=== PATIENT | male | born 1940 | race Asian ===

== ENCOUNTER 2016-05-20 15:50 | Inpatient (IN) | payer MEDICARE, MEDICAID ==
[2016-05-20 16:18] VITALS: BP 122/86
--- NOTE | 2016-05-20 16:50 | ED Physician Chart ---
Chief Complaint/HPI - Patient Information Allergies:: Allergies Allergy/AdvReac Type Severity Reaction Status Date / Time shrimp Allergy Uncoded 07/04/13 13:47 Vitals:: Vital Signs - 8 hr 05/20/16 05/20/16 16:18 19:41 Temp 98.2 F 99.9 F HR 88 81 RR 15 18 BP 122/86 163/77 O2 Sat % 97 98 <NeymardangJun - Last Filed: 05/20/16 20:21> - Patient Information Date Seen:: 05/20/16 Time Seen:: 16:30 Chief Complaint:: ALOC and he had stopped speaking. History of Present Illness:: This 75-year-old male was brought to the emergency department because he stopped talking. He normally is able to have conversation. He went from not talking to being verbal again and currently in the emergency department is probably at his baseline level. He is unable to provide any additional information on his medical history. Allergies:: Allergies Allergy/AdvReac Type Severity Reaction Status Date / Time shrimp Allergy Uncoded 07/04/13 13:47 Vitals:: Vital Signs - 8 hr 05/20/16 16:18 Temp 98.2 F HR 88 RR 15 BP 122/86 O2 Sat % 97 <Clem Greer - Last Filed: 05/21/16 22:28> Review of Systems - Review of Systems General/Constitutional: Weakness (the patient has weakness on his left side from a prior stroke.), Other (the patient is too confused to answer all of the questions in the review of systems.) Skin: No skin lesions, No rash Head: Other (when asked if he has a headache the patient says a very mild one.) Eyes: No loss of vision, No diplopia ENT: No earache, No sore throat Neck: No neck pain, No stiffness Cardio Vascular: No chest pain Pulmonary: No SOB, No cough, No sputum GI: No nausea, No vomiting, No diarrhea, No pain G/U: No hematuria Musculoskeletal: No bone or joint pain, No back pain Psychiatric: Prior psych history Hematopoietic: No bruising Neurological: Focal symptoms Other: Mild headache. <Clem Greer - Last Filed: 05/21/16 22:28> Family Medical History - Family Member Mother History Unknown: Yes Ethnicity: Non- Living Status: Hx Family Cancer: No Hx Family Coronary Artery Disease: No Hx Family Congestive Heart Failure: No Hx Family Hypertension: No Hx Family Stroke: No Hx Family Diabetes: Yes Hx Family Seizures: No Hx Family Dementia: No Hx Family AIDS: No Hx Family HIV: No Hx Family COPD: No Hx Family Hepatitis: No Hx Family Psychiatric Problems: No Hx Family Tuberculosis: No <Clem Greer - Last Filed: 05/21/16 22:28> Physical Exam - Physical Examination General/Constitutional: Awake, Well-developed, well-nourished, Alert, No distress, Non-toxic appearing Other Gen/Cons comments:: Nonambulatory due to prior stroke. He had addressed me as "Doctor" when he wanted to get my attention. He is good at following simple commands for example follow my flashlight, open your mouth, stick out your tongue. Head: Atraumatic Eyes: Lids, conjuctiva normal, PERRL, EOMI Other Eyes comments:: Patient has moderate arcus in both the right and the left eye. Skin: Nl inspection, No ecchymosis, Well hydrated Other Skin comments:: Patient has hyperpigmentation of the left lower extremity below the knee. No other rashes noted. ENMT: External ears, nose nl, Nasal exam nl, Oropharynx nl, Tonsils nl Neck: Nontender, No JVD, No nuchal rigidity, No mass Respiratory: Nl effort/Exclusion, No Wheeze/Rhonchi/Rales (no wheezes/rhonchi or rales on anterior auscultation.) Cardio Vascular: RRR, No murmur, gallop, rubs, NL S1 S2 Other Cardio Vascular comments:: Adequate pulses all 4 extremities. GI: No tenderness/rebounding/guarding, No organomegaly, No hernia, Normal BS's, Nondistended, No mass/bruits, No McBurney tenderness : No CVA tenderness (the patient has contractures of the left upper extremity and hand. There is decreased strength in the left lower extremity. The patient has trace pretibial edema bilaterally. Sensory exam was intact in the right upper and lower extremity and the left lower extremity.) Misc: Normal back <Clem Greer - Last Filed: 05/21/16 22:28> Labs/Radiology/EKG Results - Lab Results Results: Laboratory Tests 05/20/16 05/20/16 05/20/16 17:15 17:15 17:15 WBC 7.9 RBC 4.16 Hgb 12.2 L D Hct 35.8 L D MCV 86.0 MCH 29.4 MCHC Differential 34.2 RDW 13.5 Plt Count 347 D MPV 7.4 Neutrophils % 76.6 Lymphocytes % 14.4 L Monocytes % 4.9 Eosinophils % 3.2 Basophils % 0.9 Sodium 133 L Potassium 4.1 Chloride 102 Carbon Dioxide 23.9 Anion Gap 11.2 BUN 28 H Creatinine 1.9 H Est GFR ( Amer) TNP Est GFR (Non-Af Amer) TNP BUN/Creatinine Ratio 14.7 Glucose 268 H Hemoglobin A1c % Calcium 9.9 Total Bilirubin 0.6 AST 22 ALT 13 Alkaline Phosphatase 41 Troponin I 0.01 Total Protein 7.7 Albumin 4.1 L Globulin 3.6 Albumin/Globulin Ratio 1.1 Urine Source Urine Color Urine Clarity Urine pH Ur Specific [place] Urine Protein Urine Glucose (UA) Urine Ketones Urine Blood Urine Nitrate Urine Bilirubin Urine Urobilinogen Ur Leukocyte Esterase Urine RBC Urine WBC Ur Epithelial Cells Urine Bacteria 05/20/16 05/20/16 17:15 18:55 WBC RBC Hgb Hct MCV MCH MCHC Differential RDW Plt Count MPV Neutrophils % Lymphocytes % Monocytes % Eosinophils % Basophils % Sodium Potassium Chloride Carbon Dioxide Anion Gap BUN Creatinine Est GFR ( Amer) Est GFR (Non-Af Amer) BUN/Creatinine Ratio Glucose Hemoglobin A1c % 7.5 H Calcium Total Bilirubin AST ALT Alkaline Phosphatase Troponin I Total Protein Albumin Globulin Albumin/Globulin Ratio Urine Source [place] Urine Color YELLOW Urine Clarity CLEAR Urine pH 5.5 Ur Specific [place] 1.025 Urine Protein 100 H Urine Glucose (UA) 250 H Urine Ketones NEGATIVE Urine Blood SMALL H Urine Nitrate NEGATIVE Urine Bilirubin NEGATIVE Urine Urobilinogen 0.2 Ur Leukocyte Esterase NEGATIVE Urine RBC 2-5 H Urine WBC NONE SEEN Ur Epithelial Cells NONE SEEN Urine Bacteria NONE SEEN - Radiology Results Results: CT head without contrast preliminary report per radiology No hemorrhage Large areas of encephalomalacia of the right cerebral hemisphere. Areas of right-sided calcification to be chronic and due to prior infarcts. Correlate with all exams. Atrophy ASVD Left maxillary sinus disease with small air-fluid level. <Jun Rodriguez - Last Filed: 05/20/16 20:21> ED Septic Shock - . Is Septic Shock (SBP<90, OR Lactate>4 mmol\\L) present?: No - <6hrs of presentation: Vital Signs: Vital Signs - 8 hr 05/20/16 05/20/16 16:18 19:41 Temp 98.2 F 99.9 F HR 88 81 RR 15 18 BP 122/86 163/77 O2 Sat % 97 98 <Jun Rodriguez - Last Filed: 05/20/16 20:21> - <6hrs of presentation: Vital Signs: Vital Signs - 8 hr 05/20/16 16:18 Temp 98.2 F HR 88 RR 15 BP 122/86 O2 Sat % 97 <Clem Greer - Last Filed: 05/21/16 22:28> Reassessment (Disposition) - Reassessment Reassessment:: Patient was handed off to me at change of shift. The patient has a brother of a local physician. Apparently had some type of altered mental status which was transient. Patient is alert and oriented. Back to his baseline self. Case was discussed with his brother who is the physician. CT did demonstrate some left-sided maxillary sinusitis along with chronic changes. It is unknown what caused the change in the patient's mental status. He possibly had a TIA. Discussed the case with Dr. Ramos who decided to admit the patient for further workup and treatment. - Diagnosis Diagnosis:: Altered mental status, possible TIA Hypertension Left maxillary sinusitis, chronic - Patient Disposition Discharge/Transfer[facility] Medical Physician:: Antoni Ramos Time:: 20:27 Condition at Disposition:: Improved <Jun Rodriguez - Last Filed: 05/20/16 20:21> ED Discharge Plan <Jun Rodriguez - Last Filed: 05/20/16 20:21> <Clem Greer - Last Filed: 05/21/16 22:28> - Patient Disposition Admit/Discharge/Transfer: Acute Care w/in this hosp
[2016-05-20] MEDS ORDERED: Morphine Sulfate 2 mg/mL 1mL Syr IV STA (17:21)
[2016-05-20 17:31] LABS: % BASOPHILS 0.9 % (0.0-2.0); % EOSINOPHILS 3.2 % (0.0-5.0); % LYMPHOCYTES 14.4 % (20.0-50.0); % MONOCYTES 4.9 % (2.0-10.0); % NEUTROPHILS 76.6 % (40.0-80.0); MEAN CORPUSCULAR HEMOGLOBIN 29.4 pg (27.0-31.0); MEAN CORPUSCULAR HGB CONC 34.2 pg (28.0-36.0); MEAN PLATELET VOLUME 7.4 fl; PLATELET COUNT 347 Th/cmm (150-400); RED BLOOD COUNT 4.16 Mil/cmm (3.80-5.80); RED CELL DISTRIBUTION WIDTH 13.5 % (11.5-20.0); WHITE BLOOD COUNT 7.9 Th/cmm (4.8-10.8)
[2016-05-20 17:34] LABS: HEMATOCRIT 35.8 % (39.0-49.0); HEMOGLOBIN 12.2 gm/dL (12.6-17.4)
[2016-05-20 17:49] LABS: ALB/GLOB RATIO 1.1 (1.0-1.8); ALKALINE PHOSPHATASE 41 U/L (34-104); ANION GAP 11.2 (7.0-16.0); BILIRUBIN,TOTAL 0.6 mg/dL (0.3-1.0); BUN - UREA NITROGEN 28 mg/dL (7-25); BUN/CREATININE RATIO 14.7; CALCIUM SERUM 9.9 mg/dL (8.6-10.3); CARBON DIOXIDE 23.9 mEq/L (21.0-31.0); CHLORIDE 102 mEq/L (98-107); CREATININE - SERUM 1.9 mg/dL (0.7-1.3); GLUCOSE 268 mg/dL (70-105); POTASSIUM SERUM 4.1 mEq/L (3.5-5.1); SGOT 22 U/L (13-39); SGPT/ALT 13 U/L (7-52); SODIUM SERUM 133 mEq/L (136-145)
[2016-05-20] MEDS ORDERED: Morphine Sulfate 2 mg/mL 1mL Syr ONE (18:34)
[2016-05-20 19:35] LABS: URINE COLOR YELLOW
[2016-05-20 19:36] LABS: URINE BILIRUBIN NEGATIVE (NEGATIVE); URINE BLOOD SMALL (NEGATIVE); URINE GLUCOSE (UA) 250 mg/dL (NEGATIVE); URINE KETONE NEGATIVE (NEGATIVE); URINE PH 5.5; URINE PROTEIN 100 mg/dL (NEGATIVE); URINE UROBILINOGEN 0.2 E.U./dL (0.2 - 1.0)
[2016-05-20 19:37] LABS: URINE BACTERIA NONE SEEN /hpf (NONE SEEN); URINE EPITHELIAL CELLS NONE SEEN /lpf (FEW); URINE WBC NONE SEEN /hpf (0-5)
[2016-05-20] MEDS ORDERED: Sodium Chloride 0.9% 1,000 ML IV ONE (19:43)
[2016-05-20] MEDS ORDERED: Guaifenesin DM 10 ML UDC PO PRN (21:57)
[2016-05-20] MEDS ORDERED: Hydrocodone/APAP 5mg/325mg Tab PO PRN (21:57)
--- NOTE | 2016-05-20 22:14 | Admit Criteria Form ---
Admit Criteria Forms - Admit Criteria Diagnosis: MENTAL STATUS CHANGE Clinical Indications for Inpatient Care (Place 'X' for any and all applicable criteria): Ongoing inpatient care may be needed for ANY ONE of the following(1)(2)(3)(5)(6) : [X]I. Suspected serious etiology (eg, medical disorder, COMPUGRAPH OPERATOR event) of mental status change [ ]II. Danger to self or others not manageable at lower level of care [ ]III. Grave disability (eg, inability to perform self care necessary at lower level of care) [ ]IV. Agitation or inappropriate behavior interfering with care for primary condition (eg, attempting to discontinue lines or drains prematurely, unable to cooperate with respiratory care) [ ]V. Delirium [A] [D][E] as described by ANY ONE of the following(26): [ ]a) Delirium due to alcohol or sedative [F] withdrawal [ ]b) Delirium of uncertain etiology that has not responded to appropriate empiric treatment [ ]c) Delirium that prevents performance of a life-sustaining function (eg, feeding or hydrating oneself) [ ]. General contraindications and/or Inappropriate clinical situations for Observational Care in patients with Mental Status Change, when ANY ONE of the following is required: [ ]a) Prediction of prolongation of LOS based on ANY ONE of the following may be considered as a contraindication for observational care 2, 3, 4, 5, 6, 7, 8, 9, 10, 11 [ ]i) Age > 65 yrs. [ ]ii) Patient arriving by ambulance [ ]iii) Patient with high acuity [ ]iv) Patient requiring vital sign monitoring [ ]v) Patient on IV medication [ ]b) Systolic blood pressures 180mmHg 3,12 [ ]c) Patient with altered mental status including delirium and other alteration of consciousness, (3) [ ]d) Patient whose discharge disposition will be to a usp home or rehabilitation home should not be managed in Emergency Department Observation Unit. CMS rule requires 3 days hospital stay before such placement.3,13 [ ]e) Patient with failure to thrive due to broad array of etiologies 3,16,17 [ ]f) Inability to ambulate 3,14 Extended stay beyond goal length of stay for the primary condition may be needed until ALL of the following are present(3)(5): [ ]a) Underlying medical etiology of mental status change is absent, or has been established and adequately treated [ ]b) Danger to self or others is absent or manageable at lower level of care. [ ]c) Behavior crisis management, including physical or chemical restraints, is not required or available at lower level of car [ ]d) Substance or alcohol withdrawal is absent or manageable at lower level of care. [ ]e) Behavioral symptoms (eg, agitation, somnolence, inappropriate behavior) are absent, or are manageable at lower level of care. The original [facility] content created by [facility] has been revised. The portions of the content which have been revised are identified through the use of italic text or in bold, and [facility] has neither reviewed nor approved the modified material. All other unmodified content is copyright [facility]. Please see references footnoted in the original [facility] edition 2016 Admit Criteria Met?: Yes
[2016-05-20] MEDS ORDERED: Levofloxacin 500mg/100mL 500 MG/100 ML BAG IV ONE (22:15)
[2016-05-20] MEDS ORDERED: Albuterol/Ipratropium Neb 3 ML AERS HHN PRN (23:15)
[2016-05-20] MEDS: Sodium Chloride 0.9% 1,000 ML IV SCH (23:50)
[2016-05-21] MEDS: Atorvastatin Calcium 10 MG TAB PO SCH ×2 (00:22→21:05)
[2016-05-21] MEDS: Ferrous Sulfate 325 MG TAB PO SCH ×4 (00:23→21:02)
[2016-05-21] MEDS: Fenofibrate, Micronized 134 mg Cap PO SCH ×2 (00:23→08:43)
[2016-05-21] MEDS: INSULIN ASPART, RECOMBINANT 100 UNITS/ML SUBQ SCH ×4 (07:01→21:07)
[2016-05-21 07:15] LABS: ANION GAP 7.8 (7.0-16.0); BUN - UREA NITROGEN 23 mg/dL (7-25); BUN/CREATININE RATIO 15.3; CALCIUM SERUM 9.3 mg/dL (8.6-10.3); CARBON DIOXIDE 24.9 mEq/L (21.0-31.0); CHLORIDE 106 mEq/L (98-107); CREATININE - SERUM 1.5 mg/dL (0.7-1.3); GLUCOSE 134 mg/dL (70-105); POTASSIUM SERUM 3.7 mEq/L (3.5-5.1); SODIUM SERUM 135 mEq/L (136-145)
[2016-05-21 07:27] LABS: TSH 0.74 uIU/ml (0.34-5.60)
[2016-05-21] MEDS: Pantoprazole 40 mg EC Tab PO SCH ×2 (08:43→16:39)
[2016-05-21] MEDS: Multivitamin w/ Minerals Tab PO SCH (08:43)
[2016-05-21] MEDS: Diltiazem CD 120 mg 24H PO SCH (08:44)
--- NOTE | 2016-05-21 10:50 | Diagnostic Imaging Report ---
CHEST X-RAY: AP view INDICATION: Pneumonia COMPARISON: Chest x-ray 02/06/2015 FINDINGS: The prior right IJ line has been removed. Increased bibasilar lung markings are noted. No focal consolidation or pleural effusions. Mild cardiomegaly is noted with atherosclerosis. Degenerative changes of the spine are noted. IMPRESSION: Chronic lung changes with increased bibasal lung markings favoring atelectasis versus scarring. No focal consolidation identified. Mild cardiomegaly with atherosclerosis.
--- NOTE | 2016-05-21 11:48 | Diagnostic Imaging Report ---
Head CT without intravenous contrast Indication: Altered mental status Comparison: CT abdomen and pelvis on 01/20/2015 Technique: Axial images were obtained from the vertex to the skull base without IV contrast. Coronal reconstructions were made. Total DLP: [id number], [id number] FINDINGS: Images of the brain obtained without contrast demonstrate no evidence of acute hemorrhage. Large areas of encephalomalacia are seen throughout the right cerebral hemisphere likely due to old infarcts. Areas of calcification in the high right cerebral hemisphere are noted which may be related to patient's old infarcts. Atrophy is noted. The ventricles and basal cisterns are patent. No mass effect or midline shift. No evidence of a skull fracture or focal soft tissue swelling. Small air fluid level of the left maxillary sinus is noted. IMPRESSION: No evidence of an acute intracranial hemorrhage. Redemonstration of large right sided old infarcts with associated encephalomalacia and stable calcifications noted which may also be sequela of old infarcts. Atrophy. Atherosclerotic vascular disease. Left maxillary sinus disease.
[2016-05-21] MEDS: Zinc Oxide Ointment 60 gm TP SCH ×2 (11:50→21:43)
[2016-05-21] MEDS: Sodium Chloride 0.9% 1,000 ML IV SCH (17:25)
[2016-05-21] MEDS: Levofloxacin 250 mg/50 mL Premix Bag IV SCH (21:56)
--- NOTE | 2016-05-22 03:15 | History & Physical ---
INTERNAL MEDICINE HISTORY AND PHYSICAL: CHIEF COMPLAINT: Loss of consciousness, change in mental status. HISTORY OF PRESENT ILLNESS: This is a 75-year-old -[place] male with history of diabetes, hypertension, stroke, hypercholesterolemia and seizure, who was admitted from a nursing facility secondary to inability to talk and then passed out. The patient was brought to the ER. Initial CT was negative. The patient was essentially back to his baseline, able to follow simple conversation and commands. Denies any chest pain or shortness of breath. PAST MEDICAL HISTORY: As mentioned in history of present illness. PAST SURGICAL HISTORY: Status post colonoscopy in the past. ALLERGIES: No known drug allergies. MEDICATIONS: Tylenol, aspirin, diltiazem, Colace, finasteride, iron, Lyrica, Zoloft, Atrovent, Zanaflex. FAMILY HISTORY: Noncontributory. SOCIAL HISTORY: The patient is from a longterm. The patient was an avid smoker and drinker in the past. REVIEW OF SYSTEMS: This is limited secondary to the patient's current mental state. We will try to obtain a more detailed review of systems at a later date by talking to family members or brothers over the phone, number [phone]. We will also take the information from the nursing staff at [facility], number [phone]. PHYSICAL EXAMINATION: VITAL SIGNS: T-max 99.9, current temperature 97.3, blood pressure 149/68, respirations 18, pulse 55-90. GENERAL: An elderly male, appears chronically ill. NECK: Supple. No mass. LUNGS: Equal breath sounds, few rhonchi. HEART: Regular rate and rhythm with systolic ejection murmur. ABDOMEN: Soft, nontender. EXTREMITIES: Positive excoriations. NEUROLOGIC: Limited. Decreased motor and sensory in bilateral upper extremities. LABORATORY DATA: WBC 7.8, hemoglobin 12, platelets 247. Sodium 132, potassium 4.1, BUN 28, creatinine 1.9. Blood sugar 180, 132, 134, last 2 readings. Hemoglobin A1c 7.5. ____ 4.1. rbc's 5, small blood. ASSESSMENT AND PLAN: 1. Altered level of consciousness. 2. Transient ischemic attack. 3. Fever. 4. Syncope. 5. Diabetes. 6. Hypertension. 7. Hypercholesterolemia. 8. Stroke. 9. Seizure. 10. Debilitation. 11. Functional quadriplegia. 12. Anemia. 13. Hyponatremia. 14. Renal insufficiency. 15. Cardiomegaly. We will continue the patient on neuro workup, which has been ordered as well as 2D echo. We will refer the patient to physical therapy, occupational therapy, continue on aspirin, continue on ADA diet, insulin sliding scale. The patient is dehydrated. We will continue IV hydration. We will continue to follow. JOB# [id number]
[2016-05-22] MEDS: INSULIN ASPART, RECOMBINANT 100 UNITS/ML SUBQ SCH ×4 (07:07→20:54)
[2016-05-22] MEDS: INSULIN 70/30 100 UNITS/ML SUBQ SCH (07:12)
[2016-05-22 07:28] LABS: HEMATOCRIT 32.7 % (39.0-49.0); HEMOGLOBIN 11.4 gm/dL (12.6-17.4); MEAN CORPUSCULAR HEMOGLOBIN 29.5 pg (27.0-31.0); MEAN CORPUSCULAR HGB CONC 34.8 pg (28.0-36.0); MEAN PLATELET VOLUME 7.6 fl; PLATELET COUNT 296 Th/cmm (150-400); RED BLOOD COUNT 3.84 Mil/cmm (3.80-5.80); RED CELL DISTRIBUTION WIDTH 13.2 % (11.5-20.0)
[2016-05-22 07:35] LABS: ALB/GLOB RATIO 1.3 (1.0-1.8); ALKALINE PHOSPHATASE 41 U/L (34-104); ANION GAP 11.5 (7.0-16.0); BILIRUBIN,TOTAL 0.5 mg/dL (0.3-1.0); BUN - UREA NITROGEN 22 mg/dL (7-25); BUN/CREATININE RATIO 14.7; CALCIUM SERUM 9.4 mg/dL (8.6-10.3); CARBON DIOXIDE 24.2 mEq/L (21.0-31.0); CHLORIDE 106 mEq/L (98-107); CREATININE - SERUM 1.5 mg/dL (0.7-1.3); GLUCOSE 122 mg/dL (70-105); MAGNESIUM 1.8 mg/dL (1.9-2.7); POTASSIUM SERUM 3.7 mEq/L (3.5-5.1); SGOT 18 U/L (13-39); SGPT/ALT 11 U/L (7-52); SODIUM SERUM 138 mEq/L (136-145)
[2016-05-22 07:57] LABS: WHITE BLOOD COUNT 6.3 Th/cmm (4.8-10.8)
[2016-05-22] MEDS: Sodium Chloride 0.9% 1,000 ML IV SCH (09:22)
[2016-05-22] MEDS: Zinc Oxide Ointment 60 gm TP SCH ×2 (09:23→20:14)
[2016-05-22] MEDS: Diltiazem CD 120 mg 24H PO SCH (09:30)
[2016-05-22] MEDS: Fenofibrate, Micronized 134 mg Cap PO SCH (09:31)
[2016-05-22] MEDS: Pantoprazole 40 mg EC Tab PO SCH ×2 (09:31→17:59)
[2016-05-22] MEDS: Ferrous Sulfate 325 MG TAB PO SCH ×3 (09:32→20:16)
[2016-05-22] MEDS: Multivitamin w/ Minerals Tab PO SCH (09:32)
[2016-05-22 10:30] LABS: EOSINOPHIL 6 % (0-5); NEUTROPHILS 51 % (40-80); TOTAL CELLS COUNTED 100
[2016-05-22 10:31] LABS: PLATELET ESTIMATE ADEQUATE (NORMAL); PLATELET MORPHOLOGY NORMAL (NORMAL)
--- NOTE | 2016-05-22 11:02 | Diagnostic Imaging Report ---
Carotid ultrasound HISTORY: Syncope COMPARISON: None Technique: Longitudinal and transverse sonographic sector images of the carotid arteries were obtained with doppler analysis. FINDINGS: Exam of the right side demonstrates intimal thickening and mild to moderate generalized atherosclerotic plaque formation. There is increased velocities of the right proximal mid and distal ICA, greatest proximally measuring 153 cm/second. The right ICA/CCA ratio is 2.0. Increased right ECA velocity seen in limited 130 cm/second. Exam of the left side demonstrates intimal thickening and mild to moderate atherosclerotic vascular disease. Increased left ECA velocity is seen at 125 cm/second. Incidentally noted are bilateral thyroid nodules demonstrating calcifications the largest on the right measuring 1.5 cm and the largest on the right measuring 1.4 cm. Antegrade vertebral artery flow is demonstrated bilaterally. IMPRESSION: Mild to Moderate bilateral atherosclerotic vascular disease, right greater than left. There are areas of increased velocity throughout the right ICA with increased velocity ratio on the right side. This finding may be sequela of 50-69% vessel narrowing in this region. If indicated CT angiography of the neck would provide for additional detail and assessment. Increased bilateral ECA velocities, nonspecific and may be due to vessel tortuosity. Bilateral thyroid nodules noted which appear to contain calcifications.. Dedicated thyroid ultrasound is recommended for further assessment.
[2016-05-22 11:18] LABS: FOLIC ACID 7.3 ng/mL (>3.0)
[2016-05-22] MEDS ORDERED: Mag Sulfate 2gm/50mL Premix 2 GM/50 ML BAG IV ONE (12:46)
--- NOTE | 2016-05-22 12:49 | Internal Medicine Prog Note ---
Internal Medicine Subjective - Subjective Patient seen and examined:: with staff, chart reviewed Patient is:: awake, verbal, interactive Per staff patient is:: no adverse event, eating well, unstable gait Internal Medicine Objective - Results Result Diagrams: 05/22/16 06:55 05/22/16 06:55 Recent Labs: Laboratory Last Values WBC 6.3 Th/cmm (4.8-10.8) D 05/22/16 06:55 RBC 3.84 Mil/cmm (3.80-5.80) 05/22/16 06:55 Hgb 11.4 gm/dL (12.6-17.4) L 05/22/16 06:55 Hct 32.7 % (39.0-49.0) L 05/22/16 06:55 MCV 85.0 fl (80-99) 05/22/16 06:55 MCH 29.5 pg (27.0-31.0) 05/22/16 06:55 MCHC Differential 34.8 pg (28.0-36.0) 05/22/16 06:55 RDW 13.2 % (11.5-20.0) 05/22/16 06:55 Plt Count 296 Th/cmm (150-400) 05/22/16 06:55 MPV 7.6 fl 05/22/16 06:55 Neutrophils % 76.6 % (40.0-80.0) 05/20/16 17:15 Lymphocytes % 14.4 % (20.0-50.0) L 05/20/16 17:15 Monocytes % 4.9 % (2.0-10.0) 05/20/16 17:15 Eosinophils % 3.2 % (0.0-5.0) 05/20/16 17:15 Basophils % 0.9 % (0.0-2.0) 05/20/16 17:15 Neutrophils (Manual) 51 % (40-80) 05/22/16 06:55 Lymphocytes 33 % (20-50) 05/22/16 06:55 Monocytes 7 % (2-10) 05/22/16 06:55 Eosinophils 6 % (0-5) H 05/22/16 06:55 Atypical Lymphocytes 3 % 05/22/16 06:55 Platelet Estimate ADEQUATE (NORMAL) 05/22/16 06:55 Platelet Morphology NORMAL (NORMAL) 05/22/16 06:55 RBC Morph Micro Appear NORMAL (NORMAL) 05/22/16 06:55 Sodium 138 mEq/L (136-145) 05/22/16 06:55 Potassium 3.7 mEq/L (3.5-5.1) 05/22/16 06:55 Chloride 106 mEq/L (98-107) 05/22/16 06:55 Carbon Dioxide 24.2 mEq/L (21.0-31.0) 05/22/16 06:55 Anion Gap 11.5 (7.0-16.0) 05/22/16 06:55 BUN 22 mg/dL (7-25) 05/22/16 06:55 Creatinine 1.5 mg/dL (0.7-1.3) H 05/22/16 06:55 Est GFR ( Amer) TNP 05/22/16 06:55 Est GFR (Non-Af Amer) TNP 05/22/16 06:55 BUN/Creatinine Ratio 14.7 05/22/16 06:55 Glucose 122 mg/dL (70-105) H 05/22/16 06:55 POC Glucose 245 MG/DL (70 - 105) H 05/22/16 11:30 Hemoglobin A1c % 7.5 % (4.0-6.0) H 05/20/16 17:15 Calcium 9.4 mg/dL (8.6-10.3) 05/22/16 06:55 Magnesium 1.8 mg/dL (1.9-2.7) L 05/22/16 06:55 Total Bilirubin 0.5 mg/dL (0.3-1.0) 05/22/16 06:55 AST 18 U/L (13-39) 05/22/16 06:55 ALT 11 U/L (7-52) 05/22/16 06:55 Alkaline Phosphatase 41 U/L (34-104) 05/22/16 06:55 Ammonia 48 umol/L (16-53) 05/21/16 05:20 Troponin I 0.01 ng/mL (0.01-0.05) 05/20/16 17:15 B-Natriuretic Peptide 177.0 pg/mL (5.0-100.0) H 05/22/16 06:55 Total Protein 6.6 gm/dL (6.0-8.3) 05/22/16 06:55 Albumin 3.7 gm/dL (4.2-5.5) L 05/22/16 06:55 Globulin 2.9 gm/dL 05/22/16 06:55 Albumin/Globulin Ratio 1.3 (1.0-1.8) 05/22/16 06:55 Vitamin B12 867 pg/mL (211-946) 05/21/16 05:20 Folic Acid 7.3 ng/mL (>3.0) 05/21/16 05:20 TSH 0.74 uIU/ml (0.34-5.60) 05/21/16 05:20 Urine Source [place] 05/20/16 18:55 Urine Color YELLOW 05/20/16 18:55 Urine Clarity CLEAR (CLEAR) 05/20/16 18:55 Urine pH 5.5 05/20/16 18:55 Ur Specific [place] 1.025 (1.005-1.030) 05/20/16 18:55 Urine Protein 100 mg/dL (NEGATIVE) H 05/20/16 18:55 Urine Glucose (UA) 250 mg/dL (NEGATIVE) H 05/20/16 18:55 Urine Ketones NEGATIVE mg/dL (NEGATIVE) 05/20/16 18:55 Urine Blood SMALL (NEGATIVE) H 05/20/16 18:55 Urine Nitrate NEGATIVE (NEGATIVE) 05/20/16 18:55 Urine Bilirubin NEGATIVE (NEGATIVE) 05/20/16 18:55 Urine Urobilinogen 0.2 E.U./dL (0.2 - 1.0) 05/20/16 18:55 Ur Leukocyte Esterase NEGATIVE (NEGATIVE) 05/20/16 18:55 Urine RBC 2-5 /hpf (0-5) H 05/20/16 18:55 Urine WBC NONE SEEN /hpf (0-5) 05/20/16 18:55 Ur Epithelial Cells NONE SEEN /lpf (FEW) 05/20/16 18:55 Urine Bacteria NONE SEEN /hpf (NONE SEEN) 05/20/16 18:55 - Physical Exam Vitals and I&O: Vital Signs Temp 97.8 F 05/22/16 12:04 Pulse 56 05/22/16 12:04 Resp 17 05/22/16 12:04 BP 152/67 05/22/16 12:04 Pulse Ox 99 05/22/16 12:04 Intake & Output 05/21/16 05/22/16 05/22/16 18:59 06:59 18:59 Intake Total 1000 50 957 Balance 1000 50 957 Intake: Intake, IV Amount 1000 957 Sodium Chloride 0.9% 1, 1000 957 000 ml @ 60 mls/hr IV . [id number] [facility] Rx#:[id number] Oral 50 Other: # Voids 3 3 # Bowel Movements 1 0 Active Medications: Current Medications Acetaminophen (Tylenol) 650 mg PO Q4HR PRN PRN Reason: Pain or Fever >101 Stop: 07/19/16 21:56 Acetaminophen/Hydrocodone Bitart ([place] 5mg/325mg) 1 tab PO Q4H PRN PRN Reason: Pain (Severe) Stop: 07/19/16 21:56 Albuterol/Ipratropium (Duoneb Neb) 3 ml HHN Q6HRT PRN PRN Reason: Shortness of Breath Stop: 07/19/16 23:14 Ascorbic Acid (Vitamin C) 500 mg PO BID [facility] Stop: 07/20/16 08:59 Last Admin: 05/22/16 09:32 Dose: 500 mg Aspirin (Ecotrin) 81 mg PO DAILY [facility] Stop: 07/20/16 08:59 Last Admin: 05/22/16 09:32 Dose: 81 mg Atorvastatin Calcium (Lipitor) 10 mg PO HS [facility] Stop: 07/19/16 22:59 Last Admin: 05/21/16 21:05 Dose: 10 mg Bisacodyl (Dulcolax 10 Mg Supp) 10 mg RC Q48H PRN PRN Reason: Constipation Stop: 07/19/16 21:56 Calcium Carbonate (Tums) 500 mg PO Q4H PRN PRN Reason: GI DISTRESS Stop: 07/19/16 21:56 Clonidine HCl (Catapres) 0.1 mg PO Q8H PRN PRN Reason: SBP >160 Stop: 07/19/16 21:56 Diltiazem HCl (Cardizem Cd) 120 mg PO DAILY [facility] Stop: 07/20/16 08:59 Last Admin: 05/22/16 09:30 Dose: Not Given Docusate Sodium (Colace) 250 mg PO BID [facility] Stop: 07/20/16 08:59 Last Admin: 05/22/16 09:32 Dose: 250 mg Fenofibrate (Tricor) 134 mg PO DAILY [facility] Stop: 07/19/16 22:59 Last Admin: 05/22/16 09:31 Dose: 134 mg Ferrous Sulfate (Iron) 325 mg PO TID [facility] Stop: 07/19/16 22:59 Last Admin: 05/22/16 09:32 Dose: 325 mg Finasteride (Proscar) 5 mg PO DAILY [facility] PRN Reason: Protocol Stop: 07/20/16 08:59 Last Admin: 05/22/16 09:32 Dose: 5 mg Fluocinonide (Lidex 0.05%) 1 appl TP BID [facility] Stop: 07/20/16 08:59 Guaifenesin/Dextromethorphan (Robitussin Dm) 10 ml PO Q6HR PRN PRN Reason: Cough Stop: 07/19/16 21:56 Heparin Sodium (Porcine) (Heparin) 5,000 units SUBQ Q12HR [facility] Stop: 07/20/16 08:59 Last Admin: 05/22/16 09:33 Dose: 5,000 units Hydroxyzine HCl (Atarax) 25 mg PO BID PRN; Protocol PRN Reason: Itching Stop: 07/19/16 21:56 Last Admin: 05/21/16 00:37 Dose: 25 mg Sodium Chloride (Nacl 0.9%) 1,000 mls @ 60 mls/hr IV .[id number] [facility] Stop: 07/19/16 22:14 Last Admin: 05/22/16 09:22 Dose: 60 mls/hr Levofloxacin (Levaquin Pb) 250 mg in 50 mls @ 50 mls/hr IV Q24HR [facility] Stop: 07/20/16 20:59 Last Admin: 05/21/16 21:56 Dose: 50 mls/hr Insulin Aspart (Novolog) 0 units SUBQ ACHS [facility] PRN Reason: Protocol Stop: 07/20/16 07:29 Last Admin: 05/22/16 11:38 Dose: 2 units Insulin Human Isoph/Insulin Regular (Novolin 70/30) 20 units SUBQ QDAC [facility] PRN Reason: Protocol Stop: 07/20/16 07:29 Last Admin: 05/22/16 07:12 Dose: 20 units Lactic Acid (Lac-Hydrin Cream) 1 appl TP BID [facility] Stop: 07/20/16 08:59 Losartan Potassium (Cozaar) 25 mg PO DAILY [facility] Stop: 07/19/16 22:59 Last Admin: 05/22/16 09:31 Dose: Not Given Ondansetron HCl (Zofran) 4 mg IV Q8H PRN PRN Reason: Nausea / Vomiting Stop: 07/19/16 22:00 Pantoprazole Sodium (Protonix) 40 mg PO BID [facility] Stop: 07/20/16 08:59 Last Admin: 05/22/16 09:31 Dose: 40 mg Petrolatum (Zinc Oxide) 1 appl TP QSHIFT [facility] Stop: 07/20/16 07:59 Last Admin: 05/22/16 09:23 Dose: 1 appl Pregabalin (Lyrica) 50 mg PO BID [facility] Stop: 07/20/16 08:59 Last Admin: 05/22/16 09:32 Dose: 50 mg Sertraline HCl (Zoloft) 150 mg PO HS [facility] Stop: 07/19/16 22:59 Last Admin: 05/21/16 21:05 Dose: 150 mg Tamsulosin HCl (Flomax) 0.8 mg PO DAILY [facility] Stop: 07/20/16 08:59 Last Admin: 05/22/16 09:32 Dose: 0.8 mg Tizanidine HCl (Zanaflex) 2 mg PO TID [facility] Stop: 07/19/16 22:59 Last Admin: 05/22/16 09:23 Dose: 2 mg Tramadol HCl (Ultram) 50 mg PO BID PRN PRN Reason: Pain (Moderate) Stop: 07/19/16 22:59 Last Admin: 05/21/16 21:03 Dose: 50 mg Zolpidem Tartrate (Ambien) 5 mg PO HS PRN PRN Reason: Insomnia Stop: 07/19/16 22:44 Last Admin: 05/21/16 00:37 Dose: 5 mg General: lethargic, alert HEENT: NC/AT, PERRLA Neck: Supple, No JVD Lungs: congested Cardiovascular: RRR, Normal S1, Normal S2 Abdomen: soft non-tender, globular, distended Extremities: excoriation, contracture Neurological: no change, muscle weakness - Procedures Procedures: Procedures Procedure Code Date COLONOSCOPY AND BIOPSY 62603 09/24/05 EGD DIAGNOSTIC BRUSH WASH 04321 09/24/[address] GASTROSTOMY TUBE 79754 01/20/15 ELECTROENCEPHALOGRAM 89.14 09/24/05 ENDOSC POLYPECTOMY OF LG INTEST 45.42 09/24/05 INSERTION OF FEEDING DEVICE INTO STOMACH, PERC APPROACH [id number] 01/20/15 OTHER ENDOSCOPY OF SM INTEST 45.13 09/24/05 PARTIAL REMOVAL OF COLON 13386 01/20/15 REMOVAL OF GALLBLADDER 13356 01/20/15 RESECTION OF DESCENDING COLON, OPEN APPROACH [id number] 01/20/15 RESECTION OF GALLBLADDER, OPEN APPROACH [id number] 01/20/15 SPINAL FLUID TAP DIAGNOSTIC 21080 09/24/05 SPINAL TAP 03.31 09/24/05 Internal Medicine Assmt/Plan - Assessment Assessment: aloc possible tia fever syncope dm htn cva sz func quad ri - Plan Plan: labs noted carotid noted, possible 69 % bolckade on right, will order cta neck dw rn dw dr banuelos yesterday fatoumata pt
[2016-05-22] MEDS ORDERED: Promethazine DM 6.25/15mg-5mL 5 ML SYR PO PRN (14:29)
--- NOTE | 2016-05-22 15:39 | Cardiology ---
ECHOCARDIOGRAM M-MODE ECHOCARDIOGRAM: Mitral valve, anterior leaflet of the mitral valve shows normal excursion, EF velocity. Posterior leaflet of the mitral valve shows normal excursion. Left ventricular posterior wall shows increased thickness, normal excursion. Interventricular septum shows increased thickness, normal excursion, hypertrophy of the left ventricle, ejection fraction 50%. Left atrium normal. Aortic root shows normal dimensions sclerosis of aortic leaflets, normal excursion. CONCLUSION: Hypertrophy of the left ventricle, sclerosis of aortic leaflets ejection fraction 50%. 2D ECHO: Long axis view showed normal sized left ventricle with hypertrophy of the left ventricle. Left atrium normal. Aortic root shows normal dimension, normal excursion of aortic leaflets. Short axis view mitral valve normal, short axis aortic valve shows sclerosis of aortic leaflets. Normal excursion. Apical four chamber view showed normal sized left ventricle with hypertrophy of the left ventricle. Left atrium normal. Right ventricular cavity, right atrium normal, no pericardial effusion. CONCLUSION: Hypertrophy of the left ventricle, ejection fraction 50%, sclerosis of aortic leaflets Doppler study shows mild mitral regurgitation, trace tricuspid regurgitation, prominent A wave consistent with poor compliance of left ventricle. [facility]# [id number]
[2016-05-22] MEDS: Ammonium Lactate Cream 140 gm Tube TP SCH (17:58)
[2016-05-22] MEDS: Atorvastatin Calcium 10 MG TAB PO SCH (20:16)
[2016-05-22] MEDS: Levofloxacin 250 mg/50 mL Premix Bag IV SCH (20:21)
[2016-05-23] MEDS: Sodium Chloride 0.9% 1,000 ML IV SCH (06:11)
[2016-05-23] MEDS: INSULIN ASPART, RECOMBINANT 100 UNITS/ML SUBQ SCH ×3 (06:56→16:37)
[2016-05-23] MEDS: INSULIN 70/30 100 UNITS/ML SUBQ SCH (06:57)
[2016-05-23] MEDS: Diltiazem CD 120 mg 24H PO SCH (09:14)
[2016-05-23] MEDS: Fenofibrate, Micronized 134 mg Cap PO SCH (09:15)
[2016-05-23] MEDS: Pantoprazole 40 mg EC Tab PO SCH ×2 (09:15→16:37)
[2016-05-23] MEDS: Ferrous Sulfate 325 MG TAB PO SCH ×2 (09:16→13:18)
[2016-05-23] MEDS: Ammonium Lactate Cream 140 gm Tube TP SCH (09:17)
[2016-05-23] MEDS: Multivitamin w/ Minerals Tab PO SCH (09:17)
[2016-05-23] MEDS: Zinc Oxide Ointment 60 gm TP SCH (09:18)
--- NOTE | 2016-05-23 11:11 | Diagnostic Imaging Report ---
CT angiogram of the carotid arteries (PA) HISTORY: Atherosclerotic vascular disease Total DLP equals 383 CTDI equals 79.0 Following administration of intravenous contrast, axial sections were obtained from the base of the skull down through the thoracic inlet. There is suboptimal opacification of the left common and internal carotid arteries. The exam demonstrates mild atherosclerotic vascular calcification at the origin of the right common carotid artery. Moderate atherosclerotic change noted within the distal carotid bulb at the bifurcation resulting in moderate narrowing more severe atherosclerotic plaque is seen at the origin of the right internal carotid artery resulting in greater than 70% narrowing. Calcified atherosclerotic plaque is noted near the intracavernous portion of the internal carotid artery resulting in greater than a 50% narrowing. There is suboptimal opacification of the right vertebral artery with questionable mild diffuse atherosclerotic changes. Suboptimal opacification of the left carotid artery. No significant narrowing seen within the common carotid artery. Focal atherosclerotic plaque noted at the bifurcation resulting in approximate 50% narrowing within the proximal internal carotid artery. More severe narrowing noted at the origin of the right external carotid artery. No significant narrowing seen within the left vertebral artery. Incidentally noted are bilateral hypodense thyroid nodules with possible cystic characteristics. A dedicated thyroid ultrasound exam would provide further assessment and evaluation. IMPRESSION: 1. SUBOPTIMAL/LIMITED EXAM WITH SUBOPTIMAL OPACIFICATION OF THE CAROTID ARTERIES 2. Findings suggesting severe atherosclerotic plaque and narrowing at the origin the right internal carotid artery but appears to result in greater than 70% narrowing. Additional calcified plaque noted within the intracavernous portion of the internal carotid artery that appears to result in a 50% narrowing. 3. Calcified atherosclerotic plaque appears to result in an approximate percent narrowing within the left proximal internal carotid artery. 4. Bilateral thyroid nodules. A thyroid ultrasound exam is recommended for further characterization and assessment.
[2016-05-23] MEDS ORDERED: Enoxaparin 80 mg/0.8 mL 0.8mL Syr SUBQ SCH (18:00)
--- NOTE | 2016-05-23 18:35 | Consultation ---
REFERRING PHYSICIAN: Dr. Ramos. REASON FOR CONSULTATION: Loss of consciousness. Thank you for referring this patient to me. 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 He came in now with loss of consciousness. PAST MEDICAL HISTORY: Diabetes mellitus, hypertension, hypercholesterolemia, and seizure disorder. On this admission, the patient underwent CT angiogram, which showed greater than 70% stenosis of the right carotid artery. Dr. Ramos will place the patient on Lovenox while waiting for definitive treatment, which is that the patient will need right carotid endarterectomy. We will call family to apprise them about the medical condition as mentioned. JOB# [id number]
--- NOTE | 2016-05-23 21:48 | Discharge Summary ---
CHIEF COMPLAINT: Change in mental status and loss of consciousness. FINAL DIAGNOSES: 1. Right carotid stenosis, approximately 70%. 2. Altered level of consciousness, secondary to above. 3. Possible transient ischemic attack, which has resolved. 4. Fever, which has resolved. 5. Syncope. 6. Diabetes. 7. Hypertension. 8. Hypercholesterolemia. 9. Stroke. 10. Seizure. 11. Debilitation. 12. Functional quadriplegia. 13. Anemia. 14. Electrolyte abnormalities. 15. Cardiomegaly. HISTORY: This is a 75-year-old [place] male with history of diabetes, hypertension, stroke, hypercholesterolemia and seizure, admitted from nursing facility secondary to change in his mental status. The patient was admitted for further management. PHYSICAL EXAMINATION: VITAL SIGNS: Blood pressure 140/65, respirations 18, pulse 68, temperature 98.0. GENERAL: Elderly male, appears chronically ill. NECK: Supple. No mass. LUNGS: Equal breath sounds, few rhonchi. HEART: Regular rate and rhythm with systolic ejection murmur. ABDOMEN: Soft, nontender. EXTREMITIES: Positive excoriations. NEUROLOGIC: Limited. HOSPITAL COURSE: The patient was admitted to Medical Floor. Neurological workup was started. Ultrasound showed possible 70% stenosis. This was confirmed by neck CT angio. Echo was also done, which showed left ventricular hypertrophy. The patient to be seen by Vascular for possible surgical intervention at a later date. CONDITION ON DISCHARGE: Fair. OVERALL PROGNOSIS: Poor. DISCHARGE INSTRUCTIONS: The patient has discussed with his brother, Dr. Lehman and aware of the above plans. The patient will be discharged to nursing facility. JOB# [id number]
== END 2016-05-23 19:20 | DRG 67 ==
LOC: ER 15:50 → TELE 20:49
PROVIDERS: ADMIT Internal Medicine; ATTEND Internal Medicine
DX: I65.21 Occlusion and stenosis of right carotid artery (principal); R53.2 Functional quadriplegia; E11.9 Type 2 diabetes mellitus without complications; E86.0 Dehydration; E87.1 Hypo-osmolality and hyponatremia; I69.354 Hemiplegia and hemiparesis following cerebral infarction affecting left non-dominant side; D64.9 Anemia, unspecified; I10 Essential (primary) hypertension; R55 Syncope and collapse; G45.9 Transient cerebral ischemic attack, unspecified; N28.9 Disorder of kidney and ureter, unspecified; E78.5 Hyperlipidemia, unspecified; G40.909 Epilepsy, unspecified, not intractable, without status epilepticus; I51.7 Cardiomegaly; J32.0 Chronic maxillary sinusitis; E78.00 Pure hypercholesterolemia, unspecified; F17.210 Nicotine dependence, cigarettes, uncomplicated; R50.9 Fever, unspecified
CPT/HCPCS: 36415-UA; 70450-TC; 71010-TC; 80048-TC; 80053-TC; 81001-TC; 82140-TC; 82607-90; 82746-90; 82948-90; 83036-90; 83735-TC; 83880-TC; 84443-TC; 84484-TC; 85007-TC; 85025-TC; 85027-TC; 93880-TC; 96374; J1644; J1815; J1956; J2270; J3475; J7030; Q9967; Z7610

== ENCOUNTER 2016-06-05 05:59 | Inpatient (IN) | payer MEDICARE, MEDICAID ==
--- NOTE | 2016-06-05 06:31 | ED Physician Chart ---
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 was sent over from [place] for concern since heart rate was slowing into 40s. bp was 160/70 also concerning. 911 was called and pt brought to ed. pt denies any pain except at tailbone where he says he has a decubital ulcer. no cp, no sob. no diaphoresis. no fever. pt had g tube for meds only but does take po food. Allergies:: Allergies Allergy/AdvReac Type Severity Reaction Status Date / Time shrimp Allergy Uncoded 07/04/13 13:47 Historian:: Patient, Family Member, Medical Records <Ronnell Gilman - Last Filed: 06/05/16 06:37> - Patient Information Allergies:: Allergies Allergy/AdvReac Type Severity Reaction Status Date / Time shrimp Allergy Uncoded 07/04/13 13:47 Vitals:: Vital Signs - 8 hr 06/05/16 06/05/16 06:18 07:36 Temp 98.2 F 98 F HR 62 49 RR 16 16 BP 159/58 127/45 O2 Sat % 98 98 <Kwan Lindsay - Last Filed: 06/05/16 10:05> Review of Systems - Review of Systems General/Constitutional: No fever, No chills, No weight loss, Weakness, No weakness, No diaphoresis, No edema, No loss of appetite Skin: No skin lesions, No rash, No bruising Head: No headache, No light-headedness Eyes: No loss of vision, No pain, No diplopia ENT: No earache, No nasal drainage, No sore throat, No tinnitus Neck: No neck pain, No swelling, No thyromegaly, No stiffness, No mass noted Cardio Vascular: No chest pain, No palpitations, No PND, No orthopnea, No edema Pulmonary: No SOB, No cough, No sputum, No wheezing GI: No nausea, No vomiting, No diarrhea, No pain, No melena, No hematochezia, No constipation, No hematemesis G/U: No dysuria, No frequency, No hematuria Musculoskeletal: No bone or joint pain, No back pain, No muscle pain Endocrine: No polyuria, No polydipsia Psychiatric: No prior psych history, No depression, No anxiety, No suicidal ideation Hematopoietic: No bruising, No lymphadenopathy Allergic/Immuno: No urticaria, No angioedema Neurological: No syncope, Focal symptoms (prior cva w left side weakness), No weakness, No paresthesia, No headache, No seizure, No dizziness, No confusion, No vertigo <Ronnell Gilman Filed: 06/05/16 06:37> Past Medical History - Past Medical History Past Medical History: HTN, DM, CVA/TIA, Other (a fib , dysphagia, anemia, chronic kidney dz(stg2)) Social History: Care Facility Medication: Reviewed <Ronnell Gilman Filed: 06/05/16 06:37> Family Medical History - Family Member Brother Ethnicity: Non- Living Status: Still Living Mother History Unknown: Yes Ethnicity: Non- Living Status: Hx Family Cancer: No Hx Family Coronary Artery Disease: No Hx Family Congestive Heart Failure: No Hx Family Hypertension: No Hx Family Stroke: No Hx Family Diabetes: Yes Hx Family Seizures: No Hx Family Dementia: No Hx Family AIDS: No Hx Family HIV: No Hx Family COPD: No Hx Family Hepatitis: No Hx Family Psychiatric Problems: No Hx Family Tuberculosis: No <Ronnell Gilman Filed: 06/05/16 06:37> Physical Exam - Physical Examination General/Constitutional: Awake, Well-developed, well-nourished, Alert, No distress, GCS 15, Non-toxic appearing Head: Atraumatic Eyes: Lids, conjuctiva normal, PERRL, EOMI Skin: Nl inspection, No rash, No skin lesions, No ecchymosis, Well hydrated, No lymphadenopathy ENMT: External ears, nose nl, Nasal exam nl, Lips, teeth, gums nl Neck: Nontender, Full ROM w/o pain, No JVD, No nuchal rigidity, No bruit, No mass, No stridor Respiratory: Nl effort/Exclusion, Clear to Auscultation, No Wheeze/Rhonchi/Rales Cardio Vascular: RRR, No murmur, gallop, rubs, NL S1 S2 GI: No tenderness/rebounding/guarding, No organomegaly, No hernia, Normal BS's, Nondistended, No mass/bruits, No McBurney tenderness Other GI comments:: g-tube site ok. : No CVA tenderness Extremities: No tenderness or effusion, Full ROM, normal strength in all extremities, No edema, Normal digits & nails Neuro/Psych: Alert/oriented, DTR's symmetric, Normal sensory exam, Judgement/ insight normal, Mood normal, No focal deficits Other Neuro/Psych comments:: left arm and leg chronic weakness w contractures (s/p cva) general weakness pt alert w slow speech Misc: normal gait, Normal back, No paraspinal tenderness <Ronnell Gilman - Last Filed: 06/05/16 06:37> Labs/Radiology/EKG Results - Lab Results Results: Laboratory Tests 06/05/16 06/05/16 06/05/16 06:30 06:30 06:30 WBC 6.9 RBC 4.17 Hgb 12.3 L Hct 36.0 L D MCV 86.2 MCH 29.5 MCHC Differential 34.2 RDW 14.2 Plt Count 344 MPV 7.4 Neutrophils % 57.8 Lymphocytes % 33.1 Monocytes % 4.7 Eosinophils % 4.0 Basophils % 0.4 Sodium 137 Potassium 3.8 Chloride 105 Carbon Dioxide 27.8 Anion Gap 8.0 BUN 27 H Creatinine 2.0 H Est GFR ( Amer) TNP Est GFR (Non-Af Amer) TNP BUN/Creatinine Ratio 13.5 Glucose 74 Calcium 9.7 Total Bilirubin 0.5 AST 20 ALT 12 Alkaline Phosphatase 45 Troponin I 0.01 Total Protein 7.7 Albumin 4.2 Globulin 3.5 Albumin/Globulin Ratio 1.2 <Kwan Lindsay - Last Filed: 06/05/16 10:05> ED Septic Shock - . Is Septic Shock (SBP<90, OR Lactate>4 mmol\L) present?: No <Ronnell Gilman - Last Filed: 06/05/16 06:37> - <6hrs of presentation: Vital Signs: Vital Signs - 8 hr 06/05/16 06/05/16 06:18 07:36 Temp 98.2 F 98 F HR 62 49 RR 16 16 BP 159/58 127/45 O2 Sat % 98 98 <Kwan Lindsay - Last Filed: 06/05/16 10:05> Reassessment (Disposition) - Reassessment Reassessment Condition:: Unchanged - Diagnosis Diagnosis:: bradycardia; hypertension - Patient Disposition Admitted to:: Telemetry Spoke to:: Antoni Ramos Admitting Medical Physician:: Antoni Ramos Condition at Disposition:: Unchanged <Kwan Lindsay - Last Filed: 06/05/16 10:05>
[2016-06-05 06:42] LABS: % BASOPHILS 0.4 % (0.0-2.0); % LYMPHOCYTES 33.1 % (20.0-50.0); % MONOCYTES 4.7 % (2.0-10.0); % NEUTROPHILS 57.8 % (40.0-80.0); HEMOGLOBIN 12.3 gm/dL (12.6-17.4); MEAN CELL VOLUME 86.2 fl (80-99); MEAN CORPUSCULAR HEMOGLOBIN 29.5 pg (27.0-31.0); MEAN CORPUSCULAR HGB CONC 34.2 pg (28.0-36.0); MEAN PLATELET VOLUME 7.4 fl; PLATELET COUNT 344 Th/cmm (150-400); RED BLOOD COUNT 4.17 Mil/cmm (3.80-5.80); RED CELL DISTRIBUTION WIDTH 14.2 % (11.5-20.0); WHITE BLOOD COUNT 6.9 Th/cmm (4.8-10.8)
[2016-06-05 07:01] LABS: ALB/GLOB RATIO 1.2 (1.0-1.8); ALKALINE PHOSPHATASE 45 U/L (34-104); BILIRUBIN,TOTAL 0.5 mg/dL (0.3-1.0); BUN - UREA NITROGEN 27 mg/dL (7-25); BUN/CREATININE RATIO 13.5; CALCIUM SERUM 9.7 mg/dL (8.6-10.3); CARBON DIOXIDE 27.8 mEq/L (21.0-31.0); CHLORIDE 105 mEq/L (98-107); GLUCOSE 74 mg/dL (70-105); POTASSIUM SERUM 3.8 mEq/L (3.5-5.1); SGOT 20 U/L (13-39); SGPT/ALT 12 U/L (7-52); SODIUM SERUM 137 mEq/L (136-145)
--- NOTE | 2016-06-05 09:34 | Admit Criteria Form ---
Admit Criteria Forms - Admit Criteria Diagnosis: ANEMIA Clinical Indications for Inpatient Care (Place 'X' for any and all applicable criteria) Ongoing inpatient care may be needed for anemia with 1 or more of the following (1)(2)(3)(4)(18)(37): [X]I. Severe signs or symptoms unresponsive to transfusion or volume replacement, including ANY ONE of the following: []a) Heart failure []b) Chest pain []c) Myocardial ischemia []d) Exertional dyspnea []e) Syncope []f) Acute peripheral ischemia (eg, pulseless, cool, mottled, or cyanotic extremity) [X]g) Other severe signs or symptoms []II. Cognitive impairment []III. Active hemorrhage []IV.Active hemolysis with rapidly progressive anemia []V. Hemodynamic instability Extended stay beyond goal length of stay for the primary condition may be needed until ALL of the following are present (1)(2)(3)(4): []a) Hemodynamic stability []b) Any active blood loss controlled []c) Severe signs or symptoms resolved []d) Mental status normal or at baseline []e) Stable hemoglobin after transfusion []f) Any underlying disorder or complications of treatment controlled The original [employer] content created by [employer] has been revised. The portions of the content which have been revised are identified through the use of italic text or in bold, and [facility] has neither reviewed nor approved the modified material. All other unmodified content is copyright [facility] [employer]. Please see references footnoted in the original [facility] edition 2016 Admit Criteria Met?: Yes
[2016-06-05] MEDS ORDERED: Diltiazem CD 120 mg 24H PO SCH (10:00)
[2016-06-05] MEDS ORDERED: Non-Formulary Item 1 EA (Glucagon Hcl [Glucagon Hcl] 1 MG) IJ PRN (10:05)
[2016-06-05] MEDS ORDERED: Enoxaparin 80 mg/0.8 mL 0.8mL Syr SUBQ SCH (10:15)
--- NOTE | 2016-06-05 10:40 | Diagnostic Imaging Report ---
Portable chest x-ray HISTORY: Bradycardia The overall heart size is difficult to assess with portable technique in a poor inspiration. Atherosclerotic calcination seen in the aortic arch. No acute focal pulmonary processes. Degenerative changes seen to the spine. IMPRESSION: 1. No acute focal pulmonary processes 2. Atherosclerotic vascular changes
[2016-06-05] MEDS ORDERED: GLUCAGON HCl 1 MG KIT IVP PRN (10:44)
--- NOTE | 2016-06-05 12:33 | Internal Medicine Prog Note ---
Internal Medicine Subjective - Subjective Service Date: 06/05/16 ([id number]) Internal Medicine Objective - Results Result Diagrams: 06/05/16 06:30 06/05/16 06:30 Recent Labs: Laboratory Last Values WBC 6.9 Th/cmm (4.8-10.8) 06/05/16 06:30 RBC 4.17 Mil/cmm (3.80-5.80) 06/05/16 06:30 Hgb 12.3 gm/dL (12.6-17.4) L 06/05/16 06:30 Hct 36.0 % (39.0-49.0) L D 06/05/16 06:30 MCV 86.2 fl (80-99) 06/05/16 06:30 MCH 29.5 pg (27.0-31.0) 06/05/16 06:30 MCHC Differential 34.2 pg (28.0-36.0) 06/05/16 06:30 RDW 14.2 % (11.5-20.0) 06/05/16 06:30 Plt Count 344 Th/cmm (150-400) 06/05/16 06:30 MPV 7.4 fl 06/05/16 06:30 Neutrophils % 57.8 % (40.0-80.0) 06/05/16 06:30 Lymphocytes % 33.1 % (20.0-50.0) 06/05/16 06:30 Monocytes % 4.7 % (2.0-10.0) 06/05/16 06:30 Eosinophils % 4.0 % (0.0-5.0) 06/05/16 06:30 Basophils % 0.4 % (0.0-2.0) 06/05/16 06:30 Sodium 137 mEq/L (136-145) 06/05/16 06:30 Potassium 3.8 mEq/L (3.5-5.1) 06/05/16 06:30 Chloride 105 mEq/L (98-107) 06/05/16 06:30 Carbon Dioxide 27.8 mEq/L (21.0-31.0) 06/05/16 06:30 Anion Gap 8.0 (7.0-16.0) 06/05/16 06:30 BUN 27 mg/dL (7-25) H 06/05/16 06:30 Creatinine 2.0 mg/dL (0.7-1.3) H 06/05/16 06:30 Est GFR ( Amer) TNP 06/05/16 06:30 Est GFR (Non-Af Amer) TNP 06/05/16 06:30 BUN/Creatinine Ratio 13.5 06/05/16 06:30 Glucose 74 mg/dL (70-105) 06/05/16 06:30 POC Glucose 187 MG/DL (70 - 105) H 06/05/16 11:47 Calcium 9.7 mg/dL (8.6-10.3) 06/05/16 06:30 Total Bilirubin 0.5 mg/dL (0.3-1.0) 06/05/16 06:30 AST 20 U/L (13-39) 06/05/16 06:30 ALT 12 U/L (7-52) 06/05/16 06:30 Alkaline Phosphatase 45 U/L (34-104) 06/05/16 06:30 Troponin I 0.01 ng/mL (0.01-0.05) 06/05/16 06:30 Total Protein 7.7 gm/dL (6.0-8.3) 06/05/16 06:30 Albumin 4.2 gm/dL (4.2-5.5) 06/05/16 06:30 Globulin 3.5 gm/dL 06/05/16 06:30 Albumin/Globulin Ratio 1.2 (1.0-1.8) 06/05/16 06:30 - Physical Exam Vitals and I&O: Vital Signs Temp 98 F 06/05/16 07:36 Pulse 54 06/05/16 11:49 Resp 16 06/05/16 07:36 BP 127/45 06/05/16 07:36 Pulse Ox 98 06/05/16 07:36 Active Medications: Current Medications Acetaminophen (Tylenol) 650 mg GT Q4HR PRN PRN Reason: Pain or Fever >101 Stop: 08/04/16 10:04 Ascorbic Acid (Vitamin C) 500 mg GT BID [facility] Stop: 08/04/16 16:59 Aspirin (Aspirin Chewable) 81 mg GT DAILY [facility] Stop: 08/05/16 08:59 Atorvastatin Calcium (Lipitor) 10 mg GT HS L[facility] PRN Reason: Protocol Stop: 08/04/16 20:59 Bisacodyl (Dulcolax 10 Mg Supp) 10 mg RC Q24H PRN PRN Reason: Constipation Stop: 08/04/16 10:04 Calcium Carbonate (Tums) 500 mg GT Q4H PRN PRN Reason: GI DISTRESS Stop: 08/04/16 10:04 Clonidine HCl (Catapres) 0.1 mg GT Q8H PRN PRN Reason: HYPERTENSION Stop: 08/04/16 10:04 Docusate Sodium (Colace) 250 mg PO BID [facility] Stop: 08/04/16 16:59 Enoxaparin Sodium (Lovenox) 80 mg SUBQ Q12H [facility] Stop: 08/04/16 10:14 Last Admin: 06/05/16 11:52 Dose: 80 mg Ferrous Sulfate (Iron) 325 mg PO TID [facility] Stop: 08/04/16 13:59 Gabapentin (Neurontin) 300 mg GT BID [facility] Stop: 08/04/16 16:59 Glipizide (Glucotrol) 10 mg GT DAILY [facility] Stop: 08/04/16 09:59 Last Admin: 06/05/16 11:48 Dose: 10 mg Glucagon (Glucagen) 1 mg IVP UD PRN PRN Reason: ELEVATED BLOOD SUGAR Stop: 08/04/16 10:43 Insulin Aspart (Novolog) 0 units SUBQ ACHS [facility] PRN Reason: Protocol Stop: 08/04/16 16:29 Lactic Acid (Lac-Hydrin Cream) 1 appl TP BID [facility] Stop: 08/04/16 16:59 Miscellaneous (Finasteride [Finasteride]) 1 mg GT DAILY [facility] Stop: 08/05/16 08:59 - Procedures Procedures: Procedures Procedure Code Date COLONOSCOPY AND BIOPSY 09556 09/24/05 EGD DIAGNOSTIC BRUSH WASH 18548 09/24/[address] GASTROSTOMY TUBE 46306 01/20/15 ELECTROENCEPHALOGRAM 89.14 09/24/05 ENDOSC POLYPECTOMY OF LG INTEST 45.42 09/24/05 INSERTION OF FEEDING DEVICE INTO STOMACH, PERC APPROACH [id number] 01/20/15 OTHER ENDOSCOPY OF SM INTEST 45.13 09/24/05 PARTIAL REMOVAL OF COLON 45859 01/20/15 REMOVAL OF GALLBLADDER 88619 01/20/15 RESECTION OF DESCENDING COLON, OPEN APPROACH [id number] 01/20/15 RESECTION OF GALLBLADDER, OPEN APPROACH [id number] 01/20/15 SPINAL FLUID TAP DIAGNOSTIC 58447 09/24/05 SPINAL TAP 03.31 09/24/05 Internal Medicine Assmt/Plan - Assessment Assessment: symptomatic bradycardia near syncope aloc dm-2 htn debilitation functional quadriplegia anemia renal insufficiency cardiomegaly
[2016-06-05] MEDS: Ferrous Sulfate 325 MG TAB PO SCH ×2 (14:34→20:29)
--- NOTE | 2016-06-05 16:34 | History & Physical ---
CHIEF COMPLAINT: Bradycardia. HISTORY OF PRESENT ILLNESS: This is a 75-year-old Mexican male who is brought here to [facility] for bradycardia with a heart rate of 40. The patient's blood pressure was at 160 as well, so 911 was called. For this reason, the patient is now admitted to the telemetry unit. The patient was recently here on 05/20/2016 for ALOC and change in mental status. PAST MEDICAL HISTORY: Diabetes, hypertension, stroke, hypercholesterolemia, and seizure. PAST SURGICAL HISTORY: Colonoscopy in the past. ALLERGIES: No drug allergies. MEDICATIONS: Tylenol, aspirin, diltiazem, Colace, finasteride, iron, Lyrica, Zoloft, Atrovent, Zanaflex. FAMILY HISTORY: Noncontributory. SOCIAL HISTORY: The patient was a former smoker and drinker in the past. REVIEW OF SYSTEMS: GENERAL: Denies any fever, any chills. CARDIOVASCULAR: Denies any chest pain. RESPIRATORY: Denies any shortness of breath. GASTROINTESTINAL: Denies any nausea, vomiting, abdominal pain. GENITOURINARY: Denies any dysuria. All other systems are reviewed. PHYSICAL EXAMINATION: GENERAL: Elderly male, appears chronically ill. VITAL SIGNS: Temperature 98, heart rate 49, blood pressure 127/45, respirations 16, and O2 98%. HEENT: Head; normocephalic, atraumatic. NECK: Supple. No mass. LUNGS: Clear bilaterally upon auscultation. HEART: Regular rate and rhythm. No murmurs, gallops. ABDOMEN: Soft, nontender, nondistended. Positive bowel sounds in all 4 quadrants. LABORATORY DATA: WBC 6.9, H and H 12.3 and 36.0. Sodium 137, potassium 3.8, chloride 105, BUN 27, creatinine 2.0. Troponin 0.01. DIAGNOSTICS: The patient had a chest x-ray done and the impression is, no acute focal pulmonary processes, atherosclerotic vascular changes. ASSESSMENT: Symptomatic bradycardia, near syncope, altered level of consciousness, diabetes, hypertension, hypercholesterolemia, history of stroke, seizure, debilitation, functional quadriplegia, anemia, renal insufficiency. PLAN: We will have Dr. Edmar Hillman, dishwasher preparer, on the case. We will monitor the patient's electrolytes level. Fall precautions will be initiated. We will monitor the patient's glucose level tele monitoring. We will put the patient's home medications of Cardizem on hold. We will continue to monitor the patient. JOB# [id number]
[2016-06-05] MEDS ORDERED: Ammonium Lactate Cream 140 gm Tube TP SCH (17:00)
[2016-06-05] MEDS: INSULIN ASPART, RECOMBINANT 100 UNITS/ML SUBQ SCH ×2 (17:10→20:46)
--- NOTE | 2016-06-05 18:39 | Admit Criteria Form ---
Admit Criteria Forms - Admit Criteria Diagnosis: TELEMETRY CARE Telemetry Admission Guidelines (Place 'X' for any and all applicable criteria): Admission to telemetry [A] may be indicated for ANY ONE of the following(1)(2)(3 )(4)(5): [X]I. Cardiac disease, including ANY ONE of the following (9)(10)(11)(12)(13 ): [ ]a) Postacute WY [ ]b) Low-risk patients with ST-segment elevation WY who have undergone successful percutaneous coronary intervention [ ]c) Unstable angina [ ]d) Suspected W[place] (until it is ruled out) [ ]e) Post cardiac surgery (first 48 to 72 hours unless complications occur) [X]f) Acute arrhythmias (including significant tachycardia or bradycardia) [B] [ ]g) Firing of an implantable cardioverter defibrillator [C] [ ]h) Suspected pacemaker or implantable cardioverter defibrillator malfunction (10) [ ]i) New administration or adjustment of an antiarrhythmic drug [D ] [ ]j) Child admitted for acute congestive heart failure [ ]j) Long QT syndrome [ ]k) Advanced heart block (eg, second-degree Mobitz type II, third- degree heart block) [ ]l) Acute myocarditis or pericarditis [ ]m) Short-term (ambulatory or inpatient) monitoring after a cardiac procedure as indicated by ANY ONE of the following [E]: [ ]i) Electrophysiologic studies [ ]ii) Percutaneous coronary intervention with stent placement [ ]iii) Pacemaker placement with cardiac conduction defect [ ]iv) Implantable cardiac defibrillator placement [ ]II. Drug overdose or poisoning with substance that causes arrhythmias or QT prolongation (eg, phenothiazines, sympathomimetic agents, cyclic antidepressants, digitalis, antiarrhythmic drugs)(15) [ ]III. Short-term (ambulatory or inpatient) monitoring after therapeutic or diagnostic procedure requiring conscious sedation or anesthesia (eg, endoscopy, elective cardioversion) [ ]IV. Acute cerebrovascular even[F](18) [ ]V. Massive blood transfusion (eg, at least 10 units of packed red blood cells in 24 hours) [ ]. Variceal bleeding after endoscopy, sclerotherapy, or IV vasopressin [ ]VII. Uncorrected electrolyte abnormalities associated with an increased risk of dangerous arrhythmia [G]; examples include [ ]a) Hyperkalemia with attributable ECG changes [ ]b) Potassium greater than 6.5 mmol/L (mEq/L) in a patient without history of chronic renal disease [ ]c) Prolonged QT attributed to hypokalemia, hypomagnesemia, or hypocalcemia [ ]VIII.Unexplained syncope or other neurologic event suspected of being due to arrhythmia due to a finding that increases risk; examples include(19)(20)(21): [ ]a) High-risk ECG findings (eg, bifascicular block, bradycardia, abnormal QT interval, ventricular pre- excitation) [ ]b) History of previous syncope due to arrhythmia [ ]c) Abnormal ventricular function (eg, reduced ejection fraction ) [ ]d) Exertional or supine syncope [ ]e) Concerning syncope characteristics (eg, sudden loss of consciousness without prodrome) [ ]f) Family history of sudden [ ]g) Use of arrhythmogenic medication [ ]h) Suspected cardiac ischemia [ ]i) Known channelopathy (eg, long QT syndrome, Brugada syndrome, or catecholaminergic paroxysmal ventricular tachycardia) [ ]j) Known structural heart disease (eg, hypertrophic cardiomyopathy , severe valvular disease) [ ]k) Palpitations preceding syncope The original [employer] content created by [employer] has been revised. The portions of the content which have been revised are identified through the use of italic text or in bold, and [email or web address] has neither reviewed nor approved the modified material. All other unmodified content is copyright [employer]. Please see references footnoted in the original [employer] edition 2016 Admit Criteria Met?: Yes
[2016-06-05] MEDS ORDERED: Promethazine DM 6.25/15mg-5mL 5 ML SYR PO PRN (20:40)
[2016-06-05] MEDS ORDERED: Atorvastatin Calcium 10 MG TAB GT SCH (21:00)
[2016-06-06] MEDS: INSULIN ASPART, RECOMBINANT 100 UNITS/ML SUBQ SCH (06:32)
[2016-06-06] MEDS: Ferrous Sulfate 325 MG TAB PO SCH (08:05)
[2016-06-06] MEDS ORDERED: FINASTERIDE 1 MG GT SCH (09:00)
[2016-06-06] MEDS ORDERED: Aspirin 81mg Chewable Tab GT SCH (09:00)
[2016-06-06] MEDS ORDERED: DILTIAZEM HCL 120 MG GT SCH (09:00)
[2016-06-06] MEDS ORDERED: Non-Formulary Item 1 EA (Glipizide [Glipizide] 10 MG) GT SCH (09:00)
[2016-06-06] MEDS ORDERED: FINASTERIDE GT SCH (09:00)
[2016-06-06 10:48] LABS: % BASOPHILS 1.2 % (0.0-2.0); % LYMPHOCYTES 29.1 % (20.0-50.0); % MONOCYTES 5.8 % (2.0-10.0); % NEUTROPHILS 56.9 % (40.0-80.0); HEMATOCRIT 34.6 % (39.0-49.0); HEMOGLOBIN 11.7 gm/dL (12.6-17.4); MEAN CELL VOLUME 86.5 fl (80-99); MEAN CORPUSCULAR HEMOGLOBIN 29.2 pg (27.0-31.0); MEAN CORPUSCULAR HGB CONC 33.7 pg (28.0-36.0); MEAN PLATELET VOLUME 7.7 fl; NEUTROPHILE ABSOLUTE 2.9 Th/cmm (1.8-8.0); PLATELET COUNT 321 Th/cmm (150-400); RED CELL DISTRIBUTION WIDTH 14.1 % (11.5-20.0)
[2016-06-06 10:56] LABS: WHITE BLOOD COUNT 5.2 Th/cmm (4.8-10.8)
[2016-06-06 11:07] LABS: ALB/GLOB RATIO 1.2 (1.0-1.8); ALKALINE PHOSPHATASE 41 U/L (34-104); ANION GAP 10.1 (7.0-16.0); BILIRUBIN,TOTAL 0.5 mg/dL (0.3-1.0); BUN - UREA NITROGEN 23 mg/dL (7-25); BUN/CREATININE RATIO 14.4; CALCIUM SERUM 8.9 mg/dL (8.6-10.3); CARBON DIOXIDE 26.8 mEq/L (21.0-31.0); CHLORIDE 104 mEq/L (98-107); CREATININE - SERUM 1.6 mg/dL (0.7-1.3); GLUCOSE 247 mg/dL (70-105); MAGNESIUM 2.1 mg/dL (1.9-2.7); POTASSIUM SERUM 3.9 mEq/L (3.5-5.1); SGOT 18 U/L (13-39); SGPT/ALT 11 U/L (7-52); SODIUM SERUM 137 mEq/L (136-145)
--- NOTE | 2016-06-06 18:26 | Consultation ---
Patient of Dr. Ramos. HISTORY AND PHYSICAL: This 75-year-old male patient who was brought into the Emergency Room complaining of dizziness. The patient had bradycardia and uncontrolled hypertension. PAST MEDICAL HISTORY: Hypertension, diabetes mellitus type 2, hyperlipidemia, grand mal seizure, iron-deficiency anemia. FAMILY HISTORY: Unremarkable. SOCIAL HISTORY: No history of smoking, alcohol abuse. ALLERGIES: No known allergies. PHYSICAL EXAMINATION: VITAL SIGNS: Blood pressure 130/80, pulse 70, respirations 20. HEAD: Normocephalic. No lumps or bumps. EYES: Pupils equal, reactive to light. Fundi show AV nicking. Sclerae white. Conjunctivae pink. NECK: Carotid 2+. Normal upstroke. JVD flat. Thyroid not palpable. Lymph nodes not palpable. CHEST: Shows increased AP diameter. No kyphosis, scoliosis. LUNGS: Bilateral bronchovesicular breath sounds. HEART: PMI is in fifth intercostal space with lateral to midclavicular line. S1, S2. No S3, S4. Systolic murmur grade 2/6 in lower left sternal border without radiation. ABDOMEN: Soft. Liver, spleen not palpable. No organomegaly. Bowel sounds are active. NEUROLOGIC: The patient had CVA with late effect. CLINICAL IMPRESSION: 1. Bradycardia, unlikely the cause of near syncope. 2. Hypertension, uncontrolled. 3. Diabetes mellitus type 2. 4. Right carotid stenosis 70%. 5. Hyperlipidemia. 6. Grand mal seizure. 7. Iron-deficiency anemia. 8. The patient's dizziness could be secondary to carotid stenosis. PLAN: The patient's condition discussed with Dr. Ramos. We will continue present care and the patient's bradycardia probably secondary to clonidine. JOB# [id number]
--- NOTE | 2016-06-06 19:18 | Discharge Summary ---
CHIEF COMPLAINT: Fainting, not feeling well. FINAL DIAGNOSES: Symptomatic bradycardia, near-syncope, altered level of consciousness, anemia, renal insufficiency, diabetes, hypertension, stroke, functional quadriplegia with abnormalities. HISTORY: This is a 75-year-old Martiniquais male brought in from [place] secondary to heart rate in the 40s. The patient was feeling lousy, fell in bed, almost fainting. Blood pressure was 160. The patient was brought in ____. The patient admitted for further management. The patient has had complaint slight discomfort. PHYSICAL EXAMINATION: VITAL SIGNS: Blood pressure 142/67, respirations ____. GENERAL: Elderly male, appears stated age, appears chronically ill. NECK: Supple. No mass. LUNGS: Equal breath sounds, few rhonchi. HEART: Regular rate and rhythm with systolic ejection murmur. ABDOMEN: Soft, nontender. EXTREMITIES: Positive excoriations. NEUROLOGIC: Limited moving 4 extremities. HOSPITAL COURSE: The patient admitted to telemetry. Beta-jeny was discontinued as well as calcium channel jeny. Hydralazine was started and the patient was given IV hydration. The patient's condition stabilized and cleared for discharge. CONDITION ON DISCHARGE: Stable. DISCHARGE INSTRUCTIONS: The patient to continue current medical regimen. Case was discussed with the patient's brother, Dr. Lehman. JOB# [id number]
--- NOTE | 2016-06-07 03:25 | Progress Notes ---
The patient is a patient of Dr. Ramos. SUBJECTIVE: This is 33-[id number] Tuval[place] male patient who was brought to [facility] with bradycardia. The patient is asymptomatic from that. OBJECTIVE: VITAL SIGNS: Blood pressure 140/86, pulse 50 and respirations 28. LUNGS: Clear. HEART: Regular rhythm. S1 and S2. No S3 or S4. ABDOMEN: Soft. EXTREMITIES: Peripheral pulses 1+. No pedal edema. ASSESSMENT: Diabetes mellitus type 2, hypertension, CVA with late effect, hyperlipidemia and seizure disorder. The patient's blood pressure is controlled and has asymptomatic bradycardia. The patient can be discharged today. JOB# [id number]
== END 2016-06-06 17:00 | DRG 682 ==
LOC: ER 05:59 → TELE 09:16
PROVIDERS: ADMIT Internal Medicine; ATTEND Internal Medicine
DX: I12.9 Hypertensive chronic kidney disease with stage 1 through stage 4 chronic kidney disease, or unspecified chronic kidney disease (principal); R53.2 Functional quadriplegia; E11.22 Type 2 diabetes mellitus with diabetic chronic kidney disease; I48.91 Unspecified atrial fibrillation; I65.21 Occlusion and stenosis of right carotid artery; R13.10 Dysphagia, unspecified; R00.1 Bradycardia, unspecified; R55 Syncope and collapse; G40.909 Epilepsy, unspecified, not intractable, without status epilepticus; I51.7 Cardiomegaly; N18.2 Chronic kidney disease, stage 2 (mild); D50.9 Iron deficiency anemia, unspecified; E78.5 Hyperlipidemia, unspecified; I69.30 Unspecified sequelae of cerebral infarction; Z83.3 Family history of diabetes mellitus
CPT/HCPCS: 36415-UA; 71010-TC; 80053-TC; 82948-90; 83036-90; 83735-TC; 83880-TC; 84443-TC; 84484-TC; 85025-TC; 93005; J1650; J1815; Z7610

== ENCOUNTER 2018-01-04 00:03 | Inpatient (IN) | payer OTHER, MEDICAID ==
[2018-01-04] MEDS ORDERED: Albuterol/Ipratropium Neb 3 ML AERS HHN ONE ×2 (00:35→00:42)
--- NOTE | 2018-01-04 00:42 | ED Physician Chart ---
ED Chief Complaint/HPI - Patient Information Date Seen:: 01/04/18 Time Seen:: 00:36 Chief Complaint:: confusion syncope History of Present Illness:: 77 yr only male hx of syncope cofusion on plane here brother is vanesa esparza at bedside with confusion syncope question passing out on the plane Allergies:: Allergies Allergy/AdvReac Type Severity Reaction Status Date / Time shrimp Allergy Uncoded 07/04/13 13:47 Vitals:: Vital Signs - 8 hr 01/04/18 00:03 Temp 97.7 F HR 91 RR 20 BP 132/54 O2 Sat % 99 ED Review of Systems - Review of Systems General/Constitutional: No fever Head: No headache Eyes: No loss of vision ENT: No earache Neck: No neck pain Cardio Vascular: No chest pain Pulmonary: No SOB GI: No vomiting Psychiatric: No prior psych history Neurological: No focal symptoms ED Past Medical History - Past Medical History Past Medical History: No significant medical hx Family Medical History - Family Member Brother Ethnicity: Non- Living Status: Still Living Mother History Unknown: Yes Ethnicity: Non- Living Status: Hx Family Cancer: No Hx Family Coronary Artery Disease: No Hx Family Congestive Heart Failure: No Hx Family Hypertension: No Hx Family Stroke: No Hx Family Diabetes: Yes Hx Family Seizures: No Hx Family Dementia: No Hx Family AIDS: No Hx Family HIV: No Hx Family COPD: No Hx Family Hepatitis: No Hx Family Psychiatric Problems: No Hx Family Tuberculosis: No ED Labs/Radiology/EKG Results - Lab Results Results: Laboratory Tests 01/04/18 00:16 POC Glucose 304 H ED Septic Shock - . Is Septic Shock (SBP<90, OR Lactate>4 mmol\L) present?: No - <6hrs of presentation: Vital Signs: Vital Signs - 8 hr 01/04/18 00:03 Temp 97.7 F HR 91 RR 20 BP 132/54 O2 Sat % 99 ED Reassessment (Disposition) - Reassessment Reassessment:: cofn Reassessment Condition:: Improved - Diagnosis Diagnosis:: chest confusion - Aftercare/Follow up Instructions Aftercare/Follow-Up Instructions:: Counseled pt & family regarding lab results/ diagnosis & need follow up - Patient Disposition Discharge/Transfer:: Home
[2018-01-04 01:05] LABS: URINE SOURCE FOLEY PORT
[2018-01-04 01:09] LABS: % BASOPHILS 1.1 % (0.0-2.0); % EOSINOPHILS 2.3 % (0.0-5.0); % LYMPHOCYTES 25.8 % (20.0-50.0); % MONOCYTES 4.8 % (2.0-10.0); BASOPHILE ABSOLUTE 0.1 Th/cumm (0-0.2); EOSINOPHILE ABSOLUTE 0.2 Th/cmm (0.1-0.4); HEMATOCRIT 42.5 % (41.0-60); HEMOGLOBIN 14.3 gm/dL (12-16); LYMPHOCYTE ABSOLUTE 2.6 Th/cmm (1.5-3.0); MEAN CORPUSCULAR HEMOGLOBIN 29.6 pg (27.0-31.0); MEAN CORPUSCULAR HGB CONC 33.6 pg (28.0-36.0); MEAN PLATELET VOLUME 7.4 fl; MONOCYTE ABSOLUTE 0.5 Th/cmm (0.3-1.0); NEUTROPHILE ABSOLUTE 6.6 Th/cmm (1.8-8.0); PLATELET COUNT 278 Th/cmm (150-400); RED BLOOD COUNT 4.82 Mil/cmm (3.80-5.80); RED CELL DISTRIBUTION WIDTH 13.4 % (11.5-20.0)
[2018-01-04 01:23] LABS: ALB/GLOB RATIO 1.1 (1.0-1.8); ALBUMIN 3.9 gm/dL (4.2-5.5); ALKALINE PHOSPHATASE 97 U/L (34-104); ANION GAP 12.6 (7.0-16.0); BILIRUBIN,TOTAL 0.4 mg/dL (0.3-1.0); BUN - UREA NITROGEN 23 mg/dL (7-25); CALCIUM SERUM 9.9 mg/dL (8.6-10.3); CARBON DIOXIDE 23.4 mEq/L (21.0-31.0); CHLORIDE 101 mEq/L (98-107); CREATININE - SERUM 1.4 mg/dL (0.7-1.3); GLUCOSE 315 mg/dL (70-105); SGOT 18 U/L (13-39); SGPT/ALT 18 U/L (7-52); SODIUM SERUM 133 mEq/L (136-145); TOTAL PROTEIN,SERUM 7.6 gm/dL (6.0-8.3)
[2018-01-04 01:34] LABS: URINE BILIRUBIN NEGATIVE (NEGATIVE); URINE BLOOD MODERATE (NEGATIVE); URINE GLUCOSE (UA) 500 mg/dL (NEGATIVE); URINE KETONE NEGATIVE (NEGATIVE); URINE LEUKOCYTE ESTERASE NEGATIVE (NEGATIVE); URINE MICROSCOPIC INDICATED? YES; URINE NITRATE POSITIVE (NEGATIVE); URINE PH 5.5 (4.6 - 8.0); URINE PROTEIN >=300 mg/dL (NEGATIVE); URINE UROBILINOGEN 0.2 E.U./dL (0.2 - 1.0)
[2018-01-04 01:36] LABS: URINE CLARITY HAZY (CLEAR); URINE COLOR YELLOW
[2018-01-04 01:38] LABS: URINE RBC 0-2 /hpf (0-5)
[2018-01-04 01:39] LABS: URINE BACTERIA MANY /hpf (NONE SEEN); URINE EPITHELIAL CELLS NONE SEEN /lpf (FEW)
[2018-01-04] MEDS ORDERED: Sodium Chloride 0.9% 1,000 ML IV ONE (04:10)
[2018-01-04] MEDS ORDERED: INSULIN HUMAN REGULAR 100 UNITS/ML UNIT SUBQ ONE (04:11)
[2018-01-04] MEDS ORDERED: Piperacillin Sodium/Tazobact 3.375 gm Vial IV ONE (04:18)
[2018-01-04] MEDS ORDERED: INSULIN HUMAN REGULAR 100 UNITS/ML UNIT ONE (04:19)
[2018-01-04] MEDS ORDERED: Non-Formulary Item 1 EA (Albuterol Sulfate [Proair Respiclick] 2 PUFF) IH PRN (05:02)
[2018-01-04] MEDS ORDERED: Albuterol Nebulizer 2.5mg/3mL HHN PRN (05:02)
[2018-01-04] MEDS: cefTRIAXone 1 GM in Sodium Chloride 0.9% 50 ML IV SCH (05:45)
[2018-01-04] MEDS ORDERED: Pneumococcal Vaccine 0.5 mL Vial IM ONE (07:14)
[2018-01-04] MEDS ORDERED: INSULIN ASPART, RECOMBINANT 100 UNITS/ML SUBQ SCH (07:30)
--- NOTE | 2018-01-04 07:49 | Diagnostic Imaging Report ---
Head CT without intravenous contrast Indication: Confusion, syncope, history of CVA Comparison: Head CT on 05/20/[address] dating back to 01/20/2015 Technique: Axial images were obtained from the vertex to the skull base without IV contrast. Coronal reconstructions were made. Total DLP: 641, CTDI35 FINDINGS: Images of the brain obtained without contrast demonstrate no evidence of an acute hemorrhage. Areas of calcification are seen again within the right frontal temporal lobe possibly related to previous infarcts in this region. Similar findings were seen on prior exams. There is evidence of previous large right frontal temporal and parietal lobe infarct with associated encephalomalacia. Atrophy is noted. Old left thalamic lacunar infarct is also noted. No mass effect or midline shift. Diffuse atherosclerosis is noted. No evidence of a skull fracture or focal soft tissue swelling. There is mild mucosal thickening of the paranasal sinuses. IMPRESSION: Redemonstration of large area of encephalomalacia throughout the right cerebral hemisphere with areas of calcifications probably related to previous old infarcts. Similar findings seen on prior exams. There is no evidence of an acute hemorrhage. Old left thalamic lacunar infarct. Atrophy. Atherosclerotic vascular disease. If necessary MR follow-up may be helpful.
--- NOTE | 2018-01-04 08:40 | Diagnostic Imaging Report ---
Portable chest x-ray HISTORY: Shortness of breath There is accentuation of the lower interstitial lung markings associated with a poor inspiration. Allowing for this factor, no acute focal processes are seen. Heart size difficult to assess. Atherosclerotic calcification seen within the aorta. IMPRESSION: 1. Allowing for a poor inspiration, no acute focal pulmonary processes
[2018-01-04] MEDS: Diltiazem 30 mg Tab GT SCH ×2 (08:49→16:49)
[2018-01-04] MEDS: Atorvastatin Calcium 10 MG TAB GT SCH (08:49)
[2018-01-04] MEDS: INSULIN ASPART SLIDING SCALE 100 UNITS/ML UNIT SUBQ SCH ×4 (08:59→21:21)
--- NOTE | 2018-01-04 12:54 | Internal Medicine Prog Note ---
Internal Medicine Subjective - Subjective Service Date: 01/04/18 ([id number] hnp dictated) Internal Medicine Objective - Results Result Diagrams: 01/04/18 00:55 01/04/18 00:55 Recent Labs: Laboratory Last Values WBC 10.0 Th/cmm (4.8-10.8) 01/04/18 00:55 RBC 4.82 Mil/cmm (3.80-5.80) 01/04/18 00:55 Hgb 14.3 gm/dL (12-16) 01/04/18 00:55 Hct 42.5 % (41.0-60) 01/04/18 00:55 MCV 88.0 fl (80-99) 01/04/18 00:55 MCH 29.6 pg (27.0-31.0) 01/04/18 00:55 MCHC Differential 33.6 pg (28.0-36.0) 01/04/18 00:55 RDW 13.4 % (11.5-20.0) 01/04/18 00:55 Plt Count 278 Th/cmm (150-400) 01/04/18 00:55 MPV 7.4 fl 01/04/18 00:55 Neutrophils % 66.0 % (40.0-80.0) 01/04/18 00:55 Lymphocytes % 25.8 % (20.0-50.0) 01/04/18 00:55 Monocytes % 4.8 % (2.0-10.0) 01/04/18 00:55 Eosinophils % 2.3 % (0.0-5.0) 01/04/18 00:55 Basophils % 1.1 % (0.0-2.0) 01/04/18 00:55 Sodium 133 mEq/L (136-145) L 01/04/18 00:55 Potassium 4.0 mEq/L (3.5-5.1) 01/04/18 00:55 Chloride 101 mEq/L (98-107) 01/04/18 00:55 Carbon Dioxide 23.4 mEq/L (21.0-31.0) 01/04/18 00:55 Anion Gap 12.6 (7.0-16.0) 01/04/18 00:55 BUN 23 mg/dL (7-25) 09/24/18 00:55 Creatinine 1.4 mg/dL (0.7-1.3) H 01/04/18 00:55 Est GFR ( Amer) TNP 01/04/18 00:55 Est GFR (Non-Af Amer) TNP 01/04/18 00:55 BUN/Creatinine Ratio 16.4 01/04/18 00:55 Glucose 315 mg/dL (70-105) H 01/04/18 00:55 POC Glucose 206 MG/DL (70 - 105) H 01/04/18 12:28 Calcium 9.9 mg/dL (8.6-10.3) 01/04/18 00:55 Total Bilirubin 0.4 mg/dL (0.3-1.0) 01/04/18 00:55 AST 18 U/L (13-39) 01/04/18 00:55 ALT 18 U/L (7-52) 01/04/18 00:55 Alkaline Phosphatase 97 U/L (34-104) 01/04/18 00:55 Total Protein 7.6 gm/dL (6.0-8.3) 01/04/18 00:55 Albumin 3.9 gm/dL (4.2-5.5) L 01/04/18 00:55 Globulin 3.7 gm/dL 01/04/18 00:55 Albumin/Globulin Ratio 1.1 (1.0-1.8) 01/04/18 00:55 Urine Source [place] 01/04/18 00:55 Urine Color YELLOW 01/04/18 00:55 Urine Clarity HAZY (CLEAR) 01/04/18 00:55 Urine pH 5.5 (4.6 - 8.0) 01/04/18 00:55 Ur Specific [place] 1.025 (1.005-1.030) 01/04/18 00:55 Urine Protein >=300 mg/dL (NEGATIVE) 01/04/18 00:55 Urine Glucose (UA) 500 mg/dL (NEGATIVE) H 01/04/18 00:55 Urine Ketones NEGATIVE mg/dL (NEGATIVE) 01/04/18 00:55 Urine Blood MODERATE (NEGATIVE) H 01/04/18 00:55 Urine Nitrate POSITIVE (NEGATIVE) H 01/04/18 00:55 Urine Bilirubin NEGATIVE (NEGATIVE) 01/04/18 00:55 Urine Urobilinogen 0.2 E.U./dL (0.2 - 1.0) 01/04/18 00:55 Ur Leukocyte Esterase NEGATIVE (NEGATIVE) 01/04/18 00:55 Urine RBC 0-2 /hpf (0-5) H 01/04/18 00:55 Urine WBC 6-10 /hpf (0-5) 01/04/18 00:55 Ur Epithelial Cells NONE SEEN /lpf (FEW) 01/04/18 00:55 Urine Bacteria MANY /hpf (NONE SEEN) H 01/04/18 00:55 - Physical Exam Vitals and I&O: Vital Signs Temp 97.0 F 01/04/18 07:33 Pulse 64 01/04/18 08:49 Resp 19 01/04/18 12:19 BP 154/61 01/04/18 07:33 Pulse Ox 99 01/04/18 07:33 Intake & Output 01/03/18 01/04/18 01/04/18 18:59 06:59 18:59 Intake Total 50 Balance 50 Weight (lbs) 165 lb Intake: Intake, IV Amount 50 [id number] 1 gm In 50 Sodium Chloride 0.9% 50 ml @ 100 mls/hr IV Q24HR [facility] Rx#:[id number] Other: Stool Characteristics Soft Brown Weight Source Patient stated Active Medications: Current Medications Acetaminophen (Tylenol) 650 mg PO Q4H PRN PRN Reason: Pain Or Fever above 101 Stop: 03/05/18 05:04 Albuterol Sulfate (Albuterol 2.5mg/3ml Neb Ud) 2.5 mg HHN Q4HR PRN PRN Reason: Shortness of Breath Stop: 03/05/18 05:01 Aspirin (Ecotrin) 81 mg PO DAILY [facility] Stop: 03/05/18 08:59 Last Admin: 01/04/18 08:49 Dose: 81 mg Atorvastatin Calcium (Lipitor) 10 mg GT DAILY LYNETTE; Protocol Stop: 03/05/18 08:59 Last Admin: 01/04/18 08:49 Dose: 10 mg Diltiazem HCl (Cardizem) 30 mg GT BID [facility] Stop: 03/05/18 08:59 Last Admin: 01/04/18 08:49 Dose: 30 mg Finasteride (Proscar) 5 mg GT DAILY LYNETTE; Protocol Stop: 03/05/18 08:59 Last Admin: 01/04/18 08:49 Dose: 5 mg Glipizide (Glucotrol) 10 mg GT DAILY [facility] Stop: 03/05/18 08:59 Last Admin: 01/04/18 08:58 Dose: 10 mg Ceftriaxone Sodium 1 gm/ (Sodium Chloride) 50 mls @ 100 mls/hr IV Q24HR [facility] Stop: 03/05/18 05:59 Last Infusion: 01/04/18 06:20 Dose: Infused Ibuprofen (Advil) 600 mg GT Q6HR PRN PRN Reason: Pain (Mild) Stop: 03/05/18 05:01 Insulin Aspart (Novolog Insulin Sliding Scale) 0 units SUBQ ACHS [facility]; Protocol Stop: 03/05/18 07:29 Last Admin: 01/04/18 08:59 Dose: 4 units Levetiracetam (Keppra) 250 mg PO BID [facility] Stop: 03/05/18 08:59 Last Admin: 01/04/18 08:49 Dose: 250 mg Nitroglycerin (Nitrostat) 0.4 mg SL Q5MIN PRN PRN Reason: Chest Pain Stop: 03/05/18 05:04 Ondansetron HCl (Zofran) 4 mg IV Q8H PRN PRN Reason: Nausea / Vomiting Stop: 03/05/18 05:04 Pregabalin (Lyrica) 50 mg GT BID [facility] Stop: 03/05/18 08:59 Last Admin: 01/04/18 08:49 Dose: 50 mg - Procedures Procedures: Procedures Procedure Code Date COLONOSCOPY AND BIOPSY 14382 09/24/05 EGD DIAGNOSTIC BRUSH WASH 31405 09/24/[address] GASTROSTOMY TUBE 77089 01/20/15 ELECTROENCEPHALOGRAM 89.14 09/24/05 ENDOSC POLYPECTOMY OF LG INTEST 45.42 09/24/05 INSERTION OF FEEDING DEVICE INTO STOMACH, PERC APPROACH [id number] 01/20/15 OTHER ENDOSCOPY OF SM INTEST 45.13 09/24/05 PARTIAL REMOVAL OF COLON 67036 01/20/15 REMOVAL OF GALLBLADDER 44522 01/20/15 RESECTION OF DESCENDING COLON, OPEN APPROACH [id number] 01/20/15 RESECTION OF GALLBLADDER, OPEN APPROACH [id number] 01/20/15 SPINAL FLUID TAP DIAGNOSTIC 58308 09/24/05 SPINAL TAP 03.31 09/24/05
--- NOTE | 2018-01-04 14:49 | Diagnostic Imaging Report ---
Bilateral carotid Doppler ultrasound exam HISTORY: Syncope Sonographic sector images were obtained to the carotid bifurcation regions bilaterally. Associated Doppler data was obtained. The exam demonstrates generalized intimal thickening throughout the bifurcation region on the right side along with mild diffuse atherosclerotic plaque. Findings result in an approximate 15% narrowing within the proximal internal carotid artery. The right vertebral artery could not be clearly visualized. Slight increase in velocity through the internal carotid artery region along with elevation in the ICA/CCA flow ratio (2.2). The Doppler data is somewhat more abnormal than demonstrated on the sonographic images. The left side demonstrates mild diffuse atherosclerotic changes throughout the bifurcation region. Elevated velocity noted in the external carotid artery region. The ICA/CCA flow ratios normal (0.6). Antegrade vertebral artery flow. IMPRESSION: 1. Doppler data as described above of the right side which appears somewhat more abnormal than the sonographic images. Findings may be associated with disease off the [id number]. Doppler data suggests findings that may be associated with approximately 50% narrowing. A CT angiogram study would provide additional detail and assessment if needed. 2. Evidence of mild diffuse atherosclerotic changes on the left side 3. The right vertebral artery could not be visualized.
--- NOTE | 2018-01-04 16:14 | History & Physical ---
ADMIT DATE: 01/04/2018 CHIEF COMPLAINT: Increase in confusion and weakness. HISTORY OF PRESENT ILLNESS: This is a 77-year-old [place] male who is well known to me from previous admission. He is admitted to the telemetry unit due to apparently being more confused than usual. The patient was found by family members. The patient apparently had a syncopal episode associated with confusion during him passing out on the airplane. Upon examining the patient at bedside, the patient is lethargic, but arousable, no apparent distress. For further management, the patient is admitted. PAST MEDICAL HISTORY: Diabetes, hypertension, stroke, hypercholesterolemia and seizures. PAST SURGICAL HISTORY: Colonoscopy. ALLERGIES: No drug allergies. HOME MEDICATIONS: Tylenol, aspirin, Cardizem, Colace, finasteride, iron, Lyrica, Zoloft, Atrovent and Zanaflex. FAMILY HISTORY: Noncontributory. SOCIAL HISTORY: The patient is a former smoker and drinker in the past. REVIEW OF SYSTEMS: Unable to obtain due to patient's mental status. PHYSICAL EXAMINATION: GENERAL: Elderly male, lethargic, appears chronically ill, in no apparent distress. VITAL SIGNS: Temperature 97.0, heart rate 64, blood pressure 154/61, respiration 18 and O2 99%. HEENT: Head; normocephalic and atraumatic. NECK: Supple. No mass. ENT: PERRLA. No nasal deviation. No throat swelling. RESPIRATORY: Clear bilaterally upon auscultation. CARDIOVASCULAR: No murmurs, no gallops. S1 and S2 present. ABDOMEN: Soft, nontender and nondistended. EXTREMITIES: No edema noted. LABORATORY DATA: WBC 10.0, H and H 14.3/42.5 and platelets of 278. Sodium 133, potassium 4.0, chloride 101, BUN 23, creatinine 1.4 and glucose of 315. The patient had a urinalysis done, positive for UTI. DIAGNOSTICS: The patient had a CT of the head done, impression is redemonstration of large area of encephalomalacia throughout the right cerebral hemisphere with areas of calcifications probably related to previous old infarct. Similar findings are seen on prior exams. There is no evidence of acute hemorrhage, old left thalamic lacunar infarct, atrophy, atherosclerotic vascular disease. The patient also had a chest x-ray done and impression is allowing for poor inspiration, no acute focal pulmonary processes. ASSESSMENT: Generalized weakness, hyperglycemia, acute urinary tract infection, syncope, multiple falls, diabetes, hypertension, history of stroke, hypercholesterolemia and seizures. PLAN: Will get a carotid ultrasound done. We will check the patient's ammonia level. We will send urine for culture. Will get PT evaluation as well. Neurology consultation. Keep patient on low sodium diet. Keep patient on empiric IV antibiotics of Rocephin 1 gram IV q. 24 hours. Seizure precautions will be initiated. We will get some followup labs for tomorrow morning. We will continue to follow this patient. JOB# [id number]
[2018-01-05] MEDS: cefTRIAXone 1 GM in Sodium Chloride 0.9% 50 ML IV SCH (05:46)
[2018-01-05 06:26] LABS: HEMOGLOBIN 12.6 gm/dL (12-16); LYMPHOCYTE ABSOLUTE 1.8 Th/cmm (1.5-3.0); MONOCYTE ABSOLUTE 0.4 Th/cmm (0.3-1.0); RED CELL DISTRIBUTION WIDTH 13.3 % (11.5-20.0); WHITE BLOOD COUNT 6.7 Th/cmm (4.8-10.8)
[2018-01-05 06:57] LABS: % BASOPHILS 0.5 % (0.0-2.0); % EOSINOPHILS 9.9 % (0.0-5.0); % LYMPHOCYTES 27.3 % (20.0-50.0); % MONOCYTES 5.5 % (2.0-10.0); % NEUTROPHILS 56.8 % (40.0-80.0); EOSINOPHILE ABSOLUTE 0.7 Th/cmm (0.1-0.4); HEMATOCRIT 37.7 % (41.0-60); MEAN CELL VOLUME 87.9 fl (80-99); MEAN CORPUSCULAR HEMOGLOBIN 29.5 pg (27.0-31.0); MEAN CORPUSCULAR HGB CONC 33.6 pg (28.0-36.0); NEUTROPHILE ABSOLUTE 3.8 Th/cmm (1.8-8.0); PLATELET COUNT 208 Th/cmm (150-400); RED BLOOD COUNT 4.29 Mil/cmm (3.80-5.80)
[2018-01-05] MEDS: Atorvastatin Calcium 10 MG TAB GT SCH (08:18)
[2018-01-05] MEDS: Diltiazem 30 mg Tab GT SCH ×2 (08:18→16:15)
[2018-01-05 08:20] LABS: BUN - UREA NITROGEN 27 mg/dL (7-25); CALCIUM SERUM 9.2 mg/dL (8.6-10.3); CHLORIDE 108 mEq/L (98-107); CREATININE - SERUM 1.8 mg/dL (0.7-1.3); GLUCOSE 235 mg/dL (70-105); POTASSIUM SERUM 3.9 mEq/L (3.5-5.1); SODIUM SERUM 139 mEq/L (136-145)
[2018-01-05] MEDS: INSULIN ASPART SLIDING SCALE 100 UNITS/ML UNIT SUBQ SCH ×4 (08:21→21:14)
[2018-01-05 09:52] LABS: ANION GAP 16.4 (7.0-16.0); CARBON DIOXIDE 18.5 mEq/L (21.0-31.0)
[2018-01-05] MEDS: Sodium Chloride 0.45% 1,000 ML IV SCH (12:53)
--- NOTE | 2018-01-05 13:05 | Internal Medicine Prog Note ---
Internal Medicine Subjective - Subjective Service Date: 01/05/18 Patient seen and examined:: with staff Patient is:: asleep Per staff patient has:: tolerating meds Internal Medicine Objective - Results Result Diagrams: 01/05/18 04:35 01/05/18 04:35 Recent Labs: Laboratory Last Values WBC 6.7 Th/cmm (4.8-10.8) 01/05/18 04:35 RBC 4.29 Mil/cmm (3.80-5.80) 01/05/18 04:35 Hgb 12.6 gm/dL (12-16) 01/05/18 04:35 Hct 37.7 % (41.0-60) L 01/05/18 04:35 MCV 87.9 fl (80-99) 01/05/18 04:35 MCH 29.5 pg (27.0-31.0) 01/05/18 04:35 MCHC Differential 33.6 pg (28.0-36.0) 01/05/18 04:35 RDW 13.3 % (11.5-20.0) 01/05/18 04:35 Plt Count 208 Th/cmm (150-400) 01/05/18 04:35 MPV 8.0 fl 01/05/18 04:35 Neutrophils % 56.8 % (40.0-80.0) 01/05/18 04:35 Lymphocytes % 27.3 % (20.0-50.0) 01/05/18 04:35 Monocytes % 5.5 % (2.0-10.0) 01/05/18 04:35 Eosinophils % 9.9 % (0.0-5.0) H 01/05/18 04:35 Basophils % 0.5 % (0.0-2.0) 01/05/18 04:35 Sodium 139 mEq/L (136-145) 01/05/18 04:35 Potassium 3.9 mEq/L (3.5-5.1) 01/05/18 04:35 Chloride 108 mEq/L (98-107) H 01/05/18 04:35 Carbon Dioxide 18.5 mEq/L (21.0-31.0) L 01/05/18 04:35 Anion Gap 16.4 (7.0-16.0) H 01/05/18 04:35 BUN 27 mg/dL (7-25) H 01/05/18 04:35 Creatinine 1.8 mg/dL (0.7-1.3) H 01/05/18 04:35 Est GFR ( Amer) TNP 01/05/18 04:35 Est GFR (Non-Af Amer) TNP 01/05/18 04:35 BUN/Creatinine Ratio 15.0 01/05/18 04:35 Glucose 235 mg/dL (70-105) H 01/05/18 04:35 POC Glucose 265 MG/DL (70 - 105) H 01/05/18 11:10 Calcium 9.2 mg/dL (8.6-10.3) 01/05/18 04:35 Total Bilirubin 0.4 mg/dL (0.3-1.0) 01/04/18 00:55 AST 18 U/L (13-39) 01/04/18 00:55 ALT 18 U/L (7-52) 01/04/18 00:55 Alkaline Phosphatase 97 U/L (34-104) 01/04/18 00:55 Ammonia 48 umol/L (16-53) 01/05/18 04:35 Total Protein 7.6 gm/dL (6.0-8.3) 01/04/18 00:55 Albumin 3.9 gm/dL (4.2-5.5) L 01/04/18 00:55 Globulin 3.7 gm/dL 01/04/18 00:55 Albumin/Globulin Ratio 1.1 (1.0-1.8) 01/04/18 00:55 Urine Source [place] 01/04/18 00:55 Urine Color YELLOW 01/04/18 00:55 Urine Clarity HAZY (CLEAR) 01/04/18 00:55 Urine pH 5.5 (4.6 - 8.0) 01/04/18 00:55 Ur Specific [place] 1.025 (1.005-1.030) 01/04/18 00:55 Urine Protein >=300 mg/dL (NEGATIVE) 01/04/18 00:55 Urine Glucose (UA) 500 mg/dL (NEGATIVE) H 01/04/18 00:55 Urine Ketones NEGATIVE mg/dL (NEGATIVE) 01/04/18 00:55 Urine Blood MODERATE (NEGATIVE) H 01/04/18 00:55 Urine Nitrate POSITIVE (NEGATIVE) H 01/04/18 00:55 Urine Bilirubin NEGATIVE (NEGATIVE) 01/04/18 00:55 Urine Urobilinogen 0.2 E.U./dL (0.2 - 1.0) 01/04/18 00:55 Ur Leukocyte Esterase NEGATIVE (NEGATIVE) 01/04/18 00:55 Urine RBC 0-2 /hpf (0-5) H 01/04/18 00:55 Urine WBC 6-10 /hpf (0-5) 01/04/18 00:55 Ur Epithelial Cells NONE SEEN /lpf (FEW) 01/04/18 00:55 Urine Bacteria MANY /hpf (NONE SEEN) H 01/04/18 00:55 - Physical Exam Vitals and I&O: Vital Signs Temp 97.6 F 01/05/18 11:55 Pulse 57 01/05/18 11:55 Resp 16 01/05/18 12:45 BP 100/50 01/05/18 11:55 Pulse Ox 97 01/05/18 11:55 Intake & Output 01/04/18 01/05/18 01/05/18 18:59 06:59 18:59 Intake Total 1000 100 Output Total 600 200 Balance 400 -100 Weight (lbs) 181 lb 11.2 oz 140 lb 6 oz Intake: Oral 800 100 Tube Feeding 0 Other 200 Output: Urine 600 200 Other: # Bowel Movements 0 Stool Characteristics Soft Soft Brown Brown Weight Source Bedscale Bedscale Active Medications: Current Medications Acetaminophen (Tylenol) 650 mg PO Q4H PRN PRN Reason: Pain Or Fever above 101 Stop: 03/05/18 05:04 Albuterol Sulfate (Albuterol 2.5mg/3ml Neb Ud) 2.5 mg HHN Q4HR PRN PRN Reason: Shortness of Breath Stop: 03/05/18 05:01 Aspirin (Ecotrin) 81 mg PO DAILY [facility] Stop: 03/05/18 08:59 Last Admin: 01/05/18 08:19 Dose: 81 mg Atorvastatin Calcium (Lipitor) 10 mg GT DAILY [facility]; Protocol Stop: 03/05/18 08:59 Last Admin: 01/05/18 08:18 Dose: 10 mg Diltiazem HCl (Cardizem) 30 mg GT BID [facility] Stop: 03/05/18 08:59 Last Admin: 01/05/18 08:18 Dose: 30 mg Finasteride (Proscar) 5 mg GT DAILY [facility]; Protocol Stop: 03/05/18 08:59 Last Admin: 01/05/18 08:19 Dose: 5 mg Glipizide (Glucotrol) 10 mg GT DAILY [facility] Stop: 03/05/18 08:59 Last Admin: 01/05/18 08:19 Dose: 10 mg Ceftriaxone Sodium 1 gm/ (Sodium Chloride) 50 mls @ 100 mls/hr IV Q24HR [facility] Stop: 03/05/18 05:59 Last Admin: 01/05/18 05:46 Dose: 100 mls/hr Sodium Chloride (Nacl 0.45%) 1,000 mls @ 80 mls/hr IV .[id number] [facility] Stop: 03/06/18 12:29 Last Admin: 01/05/18 12:53 Dose: 80 mls/hr Ibuprofen (Advil) 600 mg GT Q6HR PRN PRN Reason: Pain (Mild) Stop: 03/05/18 05:01 Last Admin: 01/05/18 10:12 Dose: 600 mg Insulin Aspart (Novolog Insulin Sliding Scale) 0 units SUBQ ACHS [facility]; Protocol Stop: 03/05/18 07:29 Last Admin: 01/05/18 11:25 Dose: 6 units Levetiracetam (Keppra) 250 mg PO BID [facility] Stop: 03/05/18 08:59 Last Admin: 01/05/18 08:19 Dose: 250 mg Mupirocin (Bactroban Oint) 1 appl NS BID [facility] Stop: 01/10/18 09:01 Mupirocin (Bactroban Oint) 1 appl TP BID [facility] Stop: 01/10/18 16:59 Nitroglycerin (Nitrostat) 0.4 mg SL Q5MIN PRN PRN Reason: Chest Pain Stop: 03/05/18 05:04 Ondansetron HCl (Zofran) 4 mg IV Q8H PRN PRN Reason: Nausea / Vomiting Stop: 03/05/18 05:04 Pregabalin (Lyrica) 50 mg GT BID [facility] Stop: 03/05/18 08:59 Last Admin: 01/05/18 08:18 Dose: 50 mg General: weak, alert HEENT: NC/AT, PERRLA Neck: Supple Lungs: CTAB Cardiovascular: RRR, Normal S1, Normal S2, without murmur Abdomen: soft, non-tender, non-distended, positive bowel sound Neurological: alert - Procedures Procedures: Procedures Procedure Code Date COLONOSCOPY AND BIOPSY 37292 09/24/05 EGD DIAGNOSTIC BRUSH WASH 64542 09/24/[address] GASTROSTOMY TUBE 75673 01/20/15 ELECTROENCEPHALOGRAM 89.14 09/24/05 ENDOSC POLYPECTOMY OF LG INTEST 45.42 09/24/05 INSERTION OF FEEDING DEVICE INTO STOMACH, PERC APPROACH [id number] 01/20/15 OTHER ENDOSCOPY OF SM INTEST 45.13 09/24/05 PARTIAL REMOVAL OF COLON 65773 01/20/15 REMOVAL OF GALLBLADDER 92041 01/20/15 RESECTION OF DESCENDING COLON, OPEN APPROACH [id number] 01/20/15 RESECTION OF GALLBLADDER, OPEN APPROACH [id number] 01/20/15 SPINAL FLUID TAP DIAGNOSTIC 98142 09/24/05 SPINAL TAP 03.31 09/24/05 Internal Medicine Assmt/Plan - Assessment Assessment: generalized weakness hyperglycemia acute uti syncope multiple falls dm htn hx stroke hypercholesteremia seizures mrsa nares - Plan Plan: monitor bun/crea closely ivf for hydration fall precautions pt evaluation follow up labs in am continue current plan of care Nutritional Asmnt/Malnutr-PDOC - Dietary Evaluation Malnutrition Findings (Please click <Entered> for more info): Nutritional Asmnt/Malnutrition Start: 01/04/18 14: 51 Text: Status: Complete Freq: Protocol: Document 01/04/18 15:08 LCHENG (Rec: 01/04/18 15:25 [email or web address] Nutritional Asmnt/Malnutrition Patient General Information Diagnosis hyperglycemia, syncope Pertinent Medical Hx/Surgical Hx no significant medical hx per ER note Subjective Information pt seen sleeping in bed at time of visit. consult received for BS 306 at admission. Per nurse, pt has Gtube in place only for medication. Pt is able to take oral diet, good appetite. Current Diet Order/ Nutrition Support low sodium Pertinent Medications lipitor, glucotrol, novolog Pertinent Labs 01/04 Na 133, Cr 1.4, glucose 315, POC 206-304, alb 3.9 Nutritional Hx/Data Height 5 ft 6 in Height (Calculated Centimeters) 167.6 Current Weight (lbs) 165 lb Weight (Calculated Kilograms) 74.8 Weight (Calculated Grams) 99037.7 [place] Body Weight 142 Body Mass Index (BMI) 26.6 Weight Status Overweight GI Symptoms GI Symptoms None Last BM not indicated Difficult in: None Skin Integrity/Comment: scar to buttocks, dry wound to right big toe Estimated Nutritional Goals Calories/Kcals/Kg 25-30 Kcals Calculated 8529-3915 Protein g/k Protein Calculated 65 Fluid: ml 1625-1950ml (1ml/kcal) Nutritional Problem 1. Problem Problem altered nutrition related labs Etiology hyperglycemia Signs/Symptoms: glucose 315, POC 206-304 Malnutrition Alert Is there a minimum of two criteria No selected? Query Text:Check all the applicable criteria. A minimum of two criteria are recommended for diagnosis of either severe or non-severe malnutrition. Malnutrition Related to Morbid Obesity Malnutrition related to morbid obesity No Intervention/Recommendation Comments 1. Consider adding CCHO-60gm diet if glucose continue high. 2. Monitor PO intake, wt, labs and skin integrity 3. F/U as high risk in 2-3 days, 01/06-01/07 Expected Outcomes/Goals Expected Outcomes/Goals 1. PO intake to meet at least 75% of nutritional needs. 2. Wt stability, skin to remain intact, labs to approach WNL.
--- NOTE | 2018-01-05 17:00 | Consultation ---
DATE OF CONSULTATION: 01/04/2018 NEUROLOGY CONSULTATION HISTORY OF PRESENT ILLNESS: A 77-year-old male admitted with increasing confusion. The patient was noted to be less responsive than before. He also noted to have possible confusion. He was on a plane. He was almost passing out. The patient then had no definite seizures noted, but the patient will be unresponsive. Here, the patient is now a little bit more awake. He will interact, but he goes back to sleep. PAST MEDICAL HISTORY: 1. Diabetes. 2. Hypertension. 3. Stroke with left hemiplegia. 4. Hypercholesterolemia. 5. Seizures. ALLERGIES: None known. MEDICATIONS: As per reconciliation. Here, the patient is on aspirin 81, Lipitor, diltiazem, Proscar, glipizide, Ibuprofen, Keppra 250 b.i.d., Zofran, and Lyrica 50 b.i.d. REVIEW OF SYSTEMS: Twelve point negative except for above. No seizures here. The patient will move the right side, not the left. The patient slow responses. PHYSICAL EXAMINATION: VITAL SIGNS: Temperature 100.0, blood pressure 114/46, and pulse is 86. NECK: Supple, no bruits. HEART: Sounds S1, S2. LUNGS: Clear. NEUROLOGIC: The patient is lying in bed, initially sleepy. He will awaken. Looks at me. He actually answers a few words, but I could get any coherent history from the patient. The patient names simple objects. The patient will lift her right arm, increased tone with cogwheel rigidity. The patient's left side is spastic, held in a semi-flexed position. Legs are very little movement on both sides. Reflexes about 1 upper extremity difficult to get the knees and ankles on both sides. INVESTIGATIONS: CT scan of the head shows large stroke, right MCA area. In addition, there is left thalamic stroke, old. No acute process noted. Carotid Doppler, less than 50%. LABORATORY DATA: WBC 10.0, hemoglobin normal. Glucose on admission 304. UA positive with WBCs 6-10, many bacteria. IMPRESSION: 1. Encephalopathy. The patient with underlying previous stroke with cognitive impairment after that, now with possible urinary tract infection, sepsis, 2. History of previous stroke with left hemiplegia, right MCA. 3. Also old left thalamic stroke. The patient at this time no definite seizures noted though the patient is on Keppra, we will continue with that. 4. History of diabetes. 5. Hypertension. 6. Hyperlipidemia. JOB# [id number]
[2018-01-05 19:59] LABS: EOSINOPHIL SMEAR SOURCE URINE
[2018-01-05 20:00] LABS: EOSINOPHILS SMEAR COUNT NONE SEEN (NONE SEEN)
--- NOTE | 2018-01-06 00:06 | Consultation ---
DATE OF CONSULTATION: 01/05/2018 REASON FOR CONSULTATION: Worsening kidney function, electrolyte imbalance, and fluid management. HISTORY OF PRESENT ILLNESS: This is a 77-year-old [place]ese with past medical history of chronic kidney disease, who came in because of syncopal episode while in the plane. A few hours prior to admission, the patient was found unresponsive in the plane en route to [place]. He was drowsy and confused upon arrival. Thus, he was brought to the Emergency Room. CT of the head revealed large area of encephalomalacia in the right cerebral hemisphere, old left thalamic lacunar infarct, but no evidence of acute hemorrhage. Carotid ultrasound revealed a 50% narrowing of his carotids. Chest x-ray showed no acute disease. Urinalysis revealed the possibility of a UTI. Ammonia level was 48 and his EKG revealed primary AV block. The patient has a history of chronic kidney disease. His creatinine had ranged from 1.8 to 2.2 in the past. He came in now with a BUN/creatinine of 27/1.8. He does not have any history of nausea and vomiting. No diabetes. PAST MEDICAL HISTORY: 1. Chronic kidney disease. 2. Status post CVA. 3. Type 2 diabetes mellitus. 4. Essential hypertension. 5. Dyslipidemia. 6. Epilepsy. CURRENT MEDICATIONS: He is currently on acetaminophen, albuterol, aspirin, atorvastatin, ceftriaxone, clonidine, diltiazem, Proscar, ibuprofen, aspart, Keppra, mupirocin, Zofran, and pregabalin. ALLERGIES: No known drug allergies. SOCIAL AND FAMILY HISTORY: I was not able to obtain directly from the patient because of his depressed mental status at the present time. REVIEW OF SYSTEMS: Again, I was not able to decipher from the patient because of the same reason. PHYSICAL EXAMINATION: GENERAL: The patient is arousable, responds with 1-2 words. Not in any form of distress. VITAL SIGNS: Blood pressure is 100/50, pulse is 57, and temperature 97.6 degrees. SKIN: Poor turgor, warm, no rash, no jaundice appreciated. HEENT: Head normocephalic, atraumatic. Eyes: Extraocular muscles intact. Pupils equal, round, reactive to light and accommodates. Anicteric sclerae. Pale conjunctivae. Nose: Midline nasal septum. Mouth: Dry mucosa, adequate dentition. NECK: Supple, no adenopathy, no thyromegaly, no bruits. Trachea palpated in the midline. CHEST AND CARDIOVASCULAR: S1, S2. No rub, murmur, nor gallop appreciated. Point of maximal impulse fifth intercostal space, left midclavicular line. No abdominal or femoral bruits appreciated. LUNGS: Equal expansion. No use of accessory muscles. No supraclavicular retractions. Decreased breath sounds, few rhonchi, but no rales nor wheezes appreciated. ABDOMEN: Mildly globular, soft. Positive for bowel sounds. No bruits either diastolic or systolic. RECTAL: Deferred. GENITOURINARY: Normal appearing male genitalia. MUSCULOSKELETAL: No effusions present in his joints, but unable to assess his range of motion. EXTREMITIES: No evidence of edema, cyanosis, or clubbing with palpable femoral, but unable to fully appreciate popliteal and dorsalis pedis pulses. NEUROLOGIC: The patient, as mentioned, is drowsy at the present time, arousable, responds with one word. The patient is unable to follow my neuro commands due to his depressed mental status and so I was not able to pursue further my neuro exam. LABORATORY DATA: Did reveal white count 6.7, hemoglobin 12.6, hematocrit 37.7, platelets 208, and polys 56.8%. Sodium 139, potassium 3.9, chloride 108, bicarbonate 18, BUN 27, creatinine 1.6, and glucose 235. IMPRESSION: 1. Chronic kidney disease. The patient's chronic kidney disease is secondary to diabetic nephropathy with longstanding history of diabetes with some underlying hypertensive nephrosclerosis. 2. Anion gap metabolic acidosis with non-gap acidosis based on delta delta. 3. Metabolic encephalopathy, possible transient ischemic attack. 4. Benign prostatic hypertrophy. 5. Status post cerebrovascular accident. 6. Type 2 diabetes mellitus with chronic kidney disease. 7. Essential hypertension with chronic kidney disease. 8. Dyslipidemia. 9. Epilepsy. PLAN: 1. Urine C and S. 2. Urine spot sodium, eosinophils and creatinine. 3. Renal ultrasound. 4. Microalbumin to creatinine ratio. 5. CMP, CBC, hemoglobin A1c. 6. Discontinue ibuprofen. Thank you, Dr. Ramos, for this consult. We will follow the patient closely with you. JOB# [id number]
[2018-01-06] MEDS: Sodium Chloride 0.45% 1,000 ML IV SCH ×2 (00:22→15:18)
[2018-01-06] MEDS: cefTRIAXone 1 GM in Sodium Chloride 0.9% 50 ML IV SCH (05:48)
[2018-01-06 06:05] LABS: % BASOPHILS 0.8 % (0.0-2.0); % EOSINOPHILS 10.2 % (0.0-5.0); % LYMPHOCYTES 38.9 % (20.0-50.0); % MONOCYTES 7.4 % (2.0-10.0); % NEUTROPHILS 42.7 % (40.0-80.0); EOSINOPHILE ABSOLUTE 0.6 Th/cmm (0.1-0.4); HEMATOCRIT 36.3 % (41.0-60); HEMOGLOBIN 11.9 gm/dL (12-16); LYMPHOCYTE ABSOLUTE 2.4 Th/cmm (1.5-3.0); MEAN CELL VOLUME 89.8 fl (80-99); MEAN CORPUSCULAR HEMOGLOBIN 29.4 pg (27.0-31.0); MEAN CORPUSCULAR HGB CONC 32.7 pg (28.0-36.0); MEAN PLATELET VOLUME 7.7 fl; MONOCYTE ABSOLUTE 0.5 Th/cmm (0.3-1.0); NEUTROPHILE ABSOLUTE 2.7 Th/cmm (1.8-8.0); PLATELET COUNT 193 Th/cmm (150-400); RED BLOOD COUNT 4.04 Mil/cmm (3.80-5.80); RED CELL DISTRIBUTION WIDTH 13.1 % (11.5-20.0); WHITE BLOOD COUNT 6.2 Th/cmm (4.8-10.8)
[2018-01-06 06:16] LABS: ALKALINE PHOSPHATASE 69 U/L (34-104); ANION GAP 11.6 (7.0-16.0); BILIRUBIN,TOTAL 0.3 mg/dL (0.3-1.0); BUN - UREA NITROGEN 30 mg/dL (7-25); CARBON DIOXIDE 22.1 mEq/L (21.0-31.0); CHLORIDE 107 mEq/L (98-107); CREATININE - SERUM 1.7 mg/dL (0.7-1.3); GLUCOSE 183 mg/dL (70-105); MAGNESIUM 1.8 mg/dL (1.9-2.7); PHOSPHOROUS 3.9 mg/dL (2.5-5.0); POTASSIUM SERUM 3.7 mEq/L (3.5-5.1); SGOT 17 U/L (13-39); SGPT/ALT 17 U/L (7-52); SODIUM SERUM 137 mEq/L (136-145); TOTAL PROTEIN,SERUM 5.9 gm/dL (6.0-8.3)
[2018-01-06] MEDS: INSULIN ASPART SLIDING SCALE 100 UNITS/ML UNIT SUBQ SCH ×4 (08:19→20:46)
[2018-01-06] MEDS: Atorvastatin Calcium 10 MG TAB GT SCH (08:22)
[2018-01-06] MEDS: Diltiazem 30 mg Tab GT SCH (09:01)
--- NOTE | 2018-01-06 11:44 | Diagnostic Imaging Report ---
Renal ultrasound HISTORY: Abnormal renal function tests The right kidney is normal in size (10.8 x 5.8 x 5.5 cm). No focal lesions. No hydronephrosis. The left kidney is normal in size (11.1 x 5.5 x 5.8 cm). No focal lesions. No hydronephrosis. The urinary bladder cannot be evaluated due to lack of distention and presence of a Cross catheter. IMPRESSION: Negative examination of the kidneys. No hydronephrosis.
[2018-01-06] MEDS: Lactulose 10 Gm/15 mL 30mL UDC PO SCH (12:01)
--- NOTE | 2018-01-06 14:17 | General Progress Note ---
Subjective - Review of Systems Service Date: 01/06/18 Subjective: more alert, coherent, conversing Objective - Results Result Diagrams: 01/06/18 05:00 01/06/18 05:00 Recent Labs: Laboratory Last Values WBC 6.2 Th/cmm (4.8-10.8) 01/06/18 05:00 RBC 4.04 Mil/cmm (3.80-5.80) 01/06/18 05:00 Hgb 11.9 gm/dL (12-16) L 01/06/18 05:00 Hct 36.3 % (41.0-60) L 01/06/18 05:00 MCV 89.8 fl (80-99) 01/06/18 05:00 MCH 29.4 pg (27.0-31.0) 01/06/18 05:00 MCHC Differential 32.7 pg (28.0-36.0) 01/06/18 05:00 RDW 13.1 % (11.5-20.0) 01/06/18 05:00 Plt Count 193 Th/cmm (150-400) 01/06/18 05:00 MPV 7.7 fl 01/06/18 05:00 Neutrophils % 42.7 % (40.0-80.0) 01/06/18 05:00 Lymphocytes % 38.9 % (20.0-50.0) 01/06/18 05:00 Monocytes % 7.4 % (2.0-10.0) 01/06/18 05:00 Eosinophils % 10.2 % (0.0-5.0) H 01/06/18 05:00 Basophils % 0.8 % (0.0-2.0) 01/06/18 05:00 Eos Smear Source URINE 01/05/18 18:00 Eos Smear Total Cells NONE SEEN (NONE SEEN) 01/05/18 18:00 Sodium 137 mEq/L (136-145) 01/06/18 05:00 Potassium 3.7 mEq/L (3.5-5.1) 01/06/18 05:00 Chloride 107 mEq/L (98-107) 01/06/18 05:00 Carbon Dioxide 22.1 mEq/L (21.0-31.0) 01/06/18 05:00 Anion Gap 11.6 (7.0-16.0) 01/06/18 05:00 BUN 30 mg/dL (7-25) H 01/06/18 05:00 Creatinine 1.7 mg/dL (0.7-1.3) H 01/06/18 05:00 Est GFR ( Amer) TNP 01/06/18 05:00 Est GFR (Non-Af Amer) TNP 01/06/18 05:00 BUN/Creatinine Ratio 17.6 01/06/18 05:00 Glucose 183 mg/dL (70-105) H 01/06/18 05:00 POC Glucose 239 MG/DL (70 - 105) H 01/06/18 10:55 Calcium 9.0 mg/dL (8.6-10.3) 01/06/18 05:00 Phosphorus 3.9 mg/dL (2.5-5.0) 01/06/18 05:00 Magnesium 1.8 mg/dL (1.9-2.7) L 01/06/18 05:00 Total Bilirubin 0.3 mg/dL (0.3-1.0) 01/06/18 05:00 AST 17 U/L (13-39) 01/06/18 05:00 ALT 17 U/L (7-52) 01/06/18 05:00 Alkaline Phosphatase 69 U/L (34-104) 01/06/18 05:00 Ammonia 60 umol/L (16-53) H 01/06/18 05:00 B-Natriuretic Peptide 114.0 pg/mL (5.0-100.0) H 01/06/18 05:00 Total Protein 5.9 gm/dL (6.0-8.3) L 01/06/18 05:00 Albumin 3.0 gm/dL (4.2-5.5) L 01/06/18 05:00 Globulin 2.9 gm/dL 01/06/18 05:00 Albumin/Globulin Ratio 1.0 (1.0-1.8) 01/06/18 05:00 Urine Source [place] 01/04/18 00:55 Urine Color YELLOW 01/04/18 00:55 Urine Clarity HAZY (CLEAR) 01/04/18 00:55 Urine pH 5.5 (4.6 - 8.0) 01/04/18 00:55 Ur Specific [place] 1.025 (1.005-1.030) 01/04/18 00:55 Urine Protein >=300 mg/dL (NEGATIVE) 01/04/18 00:55 Urine Glucose (UA) 500 mg/dL (NEGATIVE) H 01/04/18 00:55 Urine Ketones NEGATIVE mg/dL (NEGATIVE) 01/04/18 00:55 Urine Blood MODERATE (NEGATIVE) H 01/04/18 00:55 Urine Nitrate POSITIVE (NEGATIVE) H 01/04/18 00:55 Urine Bilirubin NEGATIVE (NEGATIVE) 01/04/18 00:55 Urine Urobilinogen 0.2 E.U./dL (0.2 - 1.0) 01/04/18 00:55 Ur Leukocyte Esterase NEGATIVE (NEGATIVE) 01/04/18 00:55 Urine RBC 0-2 /hpf (0-5) H 01/04/18 00:55 Urine WBC 6-10 /hpf (0-5) 01/04/18 00:55 Ur Epithelial Cells NONE SEEN /lpf (FEW) 01/04/18 00:55 Urine Bacteria MANY /hpf (NONE SEEN) H 01/04/18 00:55 Ur Random Sodium 36 mmol/L 01/05/18 18:00 Urine Creatinine 261.0 mg/dl (39.0-259.0) H 01/05/18 18:00 Microalb/Creat Ratio 1711.1 mg/g creat (0.0-30.0) H 01/05/18 18:00 - Physical Exam Vitals and I&O: Vital Signs Temp 97.7 F 01/06/18 11:00 Pulse 48 01/06/18 11:00 Resp 18 01/06/18 11:00 BP 128/59 01/06/18 11:00 Pulse Ox 97 01/06/18 11:00 Intake & Output 01/05/18 01/06/18 01/06/18 18:59 06:59 18:59 Intake Total 150 998.667 Output Total 200 750 Balance -50 248.667 Weight (lbs) 63.673 kg 63.503 kg Intake: Intake, IV Amount 918.667 Sodium Chloride 0.45% 1, 918.667 000 ml @ 80 mls/hr IV . [id number] [facility] Rx#:[id number] Oral 150 80 Output: Urine 200 750 Other: # Bowel Movements 0 Weight Source Bedscale Bedscale Active Medications: Current Medications Acetaminophen (Tylenol) 650 mg PO Q4H PRN PRN Reason: Pain Or Fever above 101 Stop: 03/05/18 05:04 Last Admin: 01/06/18 08:21 Dose: 650 mg Albuterol Sulfate (Albuterol 2.5mg/3ml Neb Ud) 2.5 mg HHN Q4HR PRN PRN Reason: Shortness of Breath Stop: 03/05/18 05:01 Aspirin (Ecotrin) 81 mg PO DAILY [facility] Stop: 03/05/18 08:59 Last Admin: 01/06/18 08:22 Dose: 81 mg Atorvastatin Calcium (Lipitor) 10 mg GT DAILY [facility]; Protocol Stop: 03/05/18 08:59 Last Admin: 01/06/18 08:22 Dose: 10 mg Finasteride (Proscar) 5 mg GT DAILY [facility]; Protocol Stop: 03/05/18 08:59 Last Admin: 01/06/18 09:28 Dose: 5 mg Glipizide (Glucotrol) 10 mg GT DAILY [facility] Stop: 03/05/18 08:59 Last Admin: 01/06/18 08:22 Dose: 10 mg Ceftriaxone Sodium 1 gm/ (Sodium Chloride) 50 mls @ 100 mls/hr IV Q24HR [facility] Stop: 03/05/18 05:59 Last Admin: 01/06/18 05:48 Dose: 100 mls/hr Sodium Chloride (Nacl 0.45%) 1,000 mls @ 80 mls/hr IV .[id number] [facility] Stop: 03/06/18 12:29 Last Admin: 01/06/18 00:22 Dose: 80 mls/hr Insulin Aspart (Novolog Insulin Sliding Scale) 0 units SUBQ ACHS [facility]; Protocol Stop: 03/05/18 07:29 Last Admin: 01/06/18 12:00 Dose: 4 units Lactulose (Cephulac) 30 gm PO DAILY [facility] Stop: 03/07/18 08:59 Last Admin: 01/06/18 12:01 Dose: 30 gm Levetiracetam (Keppra) 250 mg PO BID [facility] Stop: 03/05/18 08:59 Last Admin: 01/06/18 08:22 Dose: 250 mg Mupirocin (Bactroban Oint) 1 appl NS BID [facility] Stop: 01/10/18 09:01 Last Admin: 01/06/18 08:19 Dose: 1 appl Nitroglycerin (Nitrostat) 0.4 mg SL Q5MIN PRN PRN Reason: Chest Pain Stop: 03/05/18 05:04 Ondansetron HCl (Zofran) 4 mg IV Q8H PRN PRN Reason: Nausea / Vomiting Stop: 03/05/18 05:04 Pregabalin (Lyrica) 50 mg GT BID [facility] Stop: 03/05/18 08:59 Last Admin: 01/06/18 08:23 Dose: 50 mg General: Alert, No acute distress HEENT: Atraumatic, Mucous membr. moist/pink Neck: Supple, +2 carotid pulse wo bruit Cardiovascular: Regular rate, Normal S1, Normal S2 Lungs: Clear to auscultation Abdomen: Bowel sounds, Soft Extremities: no Edema Neurological: Sensation intact Skin: no Rash Psych/Mental Status: Mood NL - Procedures Procedures: Procedures Procedure Code Date COLONOSCOPY AND BIOPSY 52654 09/24/05 EGD DIAGNOSTIC BRUSH WASH 78538 09/24/[address] GASTROSTOMY TUBE 91963 01/20/15 ELECTROENCEPHALOGRAM 89.14 09/24/05 ENDOSC POLYPECTOMY OF LG INTEST 45.42 09/24/05 INSERTION OF FEEDING DEVICE INTO STOMACH, PERC APPROACH [id number] 01/20/15 OTHER ENDOSCOPY OF SM INTEST 45.13 09/24/05 PARTIAL REMOVAL OF COLON 09692 01/20/15 REMOVAL OF GALLBLADDER 34323 01/20/15 RESECTION OF DESCENDING COLON, OPEN APPROACH [id number] 01/20/15 RESECTION OF GALLBLADDER, OPEN APPROACH [id number] 01/20/15 SPINAL FLUID TAP DIAGNOSTIC 65240 09/24/05 SPINAL TAP 03.31 09/24/05 Assessment/Plan - Assessment Assessment: CKD Met Enceph AG Met Acid BPH S/P CVA 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 dyslipidemia Epilepsy - Plan Plan: Lab - Result Diagrams 01/06/18 05:00 01/06/18 05:00 Current Medications Acetaminophen (Tylenol) 650 mg PO Q4H PRN PRN Reason: Pain Or Fever above 101 Stop: 03/05/18 05:04 Last Admin: 01/06/18 08:21 Dose: 650 mg Albuterol Sulfate (Albuterol 2.5mg/3ml Neb Ud) 2.5 mg HHN Q4HR PRN PRN Reason: Shortness of Breath Stop: 03/05/18 05:01 Aspirin (Ecotrin) 81 mg PO DAILY [facility] Stop: 03/05/18 08:59 Last Admin: 01/06/18 08:22 Dose: 81 mg Atorvastatin Calcium (Lipitor) 10 mg GT DAILY [facility]; Protocol Stop: 03/05/18 08:59 Last Admin: 01/06/18 08:22 Dose: 10 mg Finasteride (Proscar) 5 mg GT DAILY [facility]; Protocol Stop: 03/05/18 08:59 Last Admin: 01/06/18 09:28 Dose: 5 mg Glipizide (Glucotrol) 10 mg GT DAILY [facility] Stop: 03/05/18 08:59 Last Admin: 01/06/18 08:22 Dose: 10 mg Ceftriaxone Sodium 1 gm/ (Sodium Chloride) 50 mls @ 100 mls/hr IV Q24HR [facility] Stop: 03/05/18 05:59 Last Admin: 01/06/18 05:48 Dose: 100 mls/hr Sodium Chloride (Nacl 0.45%) 1,000 mls @ 80 mls/hr IV .[id number] [facility] Stop: 03/06/18 12:29 Last Admin: 01/06/18 00:22 Dose: 80 mls/hr Insulin Aspart (Novolog Insulin Sliding Scale) 0 units SUBQ ACHS [facility]; Protocol Stop: 03/05/18 07:29 Last Admin: 01/06/18 12:00 Dose: 4 units Lactulose (Cephulac) 30 gm PO DAILY [facility] Stop: 03/07/18 08:59 Last Admin: 01/06/18 12:01 Dose: 30 gm Levetiracetam (Keppra) 250 mg PO BID [facility] Stop: 03/05/18 08:59 Last Admin: 01/06/18 08:22 Dose: 250 mg Mupirocin (Bactroban Oint) 1 appl NS BID [facility] Stop: 01/10/18 09:01 Last Admin: 01/06/18 08:19 Dose: 1 appl Nitroglycerin (Nitrostat) 0.4 mg SL Q5MIN PRN PRN Reason: Chest Pain Stop: 03/05/18 05:04 Ondansetron HCl (Zofran) 4 mg IV Q8H PRN PRN Reason: Nausea / Vomiting Stop: 03/05/18 05:04 Pregabalin (Lyrica) 50 mg GT BID [facility] Stop: 03/05/18 08:59 Last Admin: 01/06/18 08:23 Dose: 50 mg Lab - Result Diagrams 01/06/18 05:00 01/06/18 05:00 Kidney fnc remain stable w/ BUN/CR of 30/1.7 more interactive today Urine grew ESBL K. pneumo WBC 6.2, afebrile on Ceftriaxone Nutritional Asmnt/Malnutr-PDOC - Dietary Evaluation Malnutrition Findings (Please click <Entered> for more info): Nutritional Asmnt/Malnutrition Start: 01/04/18 14: 51 Text: Status: Complete Freq: Protocol: Document 01/04/18 15:08 LCHENG (Rec: 01/04/18 15:25 [email or web address]) Nutritional Asmnt/Malnutrition Patient General Information Nutritional Screening High Risk Consult Diagnosis hyperglycemia, syncope Pertinent Medical Hx/Surgical Hx no significant medical hx per ER note Subjective Information pt seen sleeping in bed at time of visit. consult received for BS 306 at admission and geo score 12. Per nurse, pt has Gtube in place only for medication. Pt is able to take oral diet, good appetite. Current Diet Order/ Nutrition Support low sodium Pertinent Medications lipitor, glucotrol, novolog Pertinent Labs 01/04 Na 133, Cr 1.4, glucose 315, POC 206-304, alb 3.9 Nutritional Hx/Data Height 1.68 m Height (Calculated Centimeters) 167.6 Current Weight (lbs) 74.843 kg Weight (Calculated Kilograms) 74.8 Weight (Calculated Grams) 23204.7 [place] Body Weight 142 Body Mass Index (BMI) 26.6 Weight Status Overweight GI Symptoms GI Symptoms None Last BM not indicated Difficult in: None Skin Integrity/Comment: scar to buttocks, dry wound to right big toe Geo 12 Estimated Nutritional Goals Calories/Kcals/Kg 25-30 Kcals Calculated 9544-0741 Protein g/k Protein Calculated 65 Fluid: ml 1625-1950ml (1ml/kcal) Nutritional Problem 1. Problem Problem altered nutrition related labs Etiology hyperglycemia Signs/Symptoms: glucose 315, POC 206-304 Malnutrition Alert Is there a minimum of two criteria No selected? Query Text:Check all the applicable criteria. A minimum of two criteria are recommended for diagnosis of either severe or non-severe malnutrition. Malnutrition Related to Morbid Obesity Malnutrition related to morbid obesity No Intervention/Recommendation Comments 1. Consider adding CCHO-60gm diet if glucose continue high. 2. Monitor PO intake, wt, labs and skin integrity 3. F/U as high risk in 2-3 days, 01/06-01/07 Expected Outcomes/Goals Expected Outcomes/Goals 1. PO intake to meet at least 75% of nutritional needs. 2. Wt stability, skin to remain intact, labs to approach WNL.
--- NOTE | 2018-01-06 15:03 | Internal Medicine Prog Note ---
Internal Medicine Subjective - Subjective Service Date: 01/06/18 Patient seen and examined:: with staff Patient is:: awake Per staff patient has:: tolerating meds Internal Medicine Objective - Results Result Diagrams: 01/06/18 05:00 01/06/18 05:00 Recent Labs: Laboratory Last Values WBC 6.2 Th/cmm (4.8-10.8) 01/06/18 05:00 RBC 4.04 Mil/cmm (3.80-5.80) 01/06/18 05:00 Hgb 11.9 gm/dL (12-16) L 01/06/18 05:00 Hct 36.3 % (41.0-60) L 01/06/18 05:00 MCV 89.8 fl (80-99) 01/06/18 05:00 MCH 29.4 pg (27.0-31.0) 01/06/18 05:00 MCHC Differential 32.7 pg (28.0-36.0) 01/06/18 05:00 RDW 13.1 % (11.5-20.0) 01/06/18 05:00 Plt Count 193 Th/cmm (150-400) 01/06/18 05:00 MPV 7.7 fl 01/06/18 05:00 Neutrophils % 42.7 % (40.0-80.0) 01/06/18 05:00 Lymphocytes % 38.9 % (20.0-50.0) 01/06/18 05:00 Monocytes % 7.4 % (2.0-10.0) 01/06/18 05:00 Eosinophils % 10.2 % (0.0-5.0) H 01/06/18 05:00 Basophils % 0.8 % (0.0-2.0) 01/06/18 05:00 Eos Smear Source URINE 01/05/18 18:00 Eos Smear Total Cells NONE SEEN (NONE SEEN) 01/05/18 18:00 Sodium 137 mEq/L (136-145) 01/06/18 05:00 Potassium 3.7 mEq/L (3.5-5.1) 01/06/18 05:00 Chloride 107 mEq/L (98-107) 01/06/18 05:00 Carbon Dioxide 22.1 mEq/L (21.0-31.0) 01/06/18 05:00 Anion Gap 11.6 (7.0-16.0) 01/06/18 05:00 BUN 30 mg/dL (7-25) H 01/06/18 05:00 Creatinine 1.7 mg/dL (0.7-1.3) H 01/06/18 05:00 Est GFR ( Amer) TNP 01/06/18 05:00 Est GFR (Non-Af Amer) TNP 01/06/18 05:00 BUN/Creatinine Ratio 17.6 01/06/18 05:00 Glucose 183 mg/dL (70-105) H 01/06/18 05:00 POC Glucose 239 MG/DL (70 - 105) H 01/06/18 10:55 Calcium 9.0 mg/dL (8.6-10.3) 01/06/18 05:00 Phosphorus 3.9 mg/dL (2.5-5.0) 01/06/18 05:00 Magnesium 1.8 mg/dL (1.9-2.7) L 01/06/18 05:00 Total Bilirubin 0.3 mg/dL (0.3-1.0) 01/06/18 05:00 AST 17 U/L (13-39) 01/06/18 05:00 ALT 17 U/L (7-52) 01/06/18 05:00 Alkaline Phosphatase 69 U/L (34-104) 01/06/18 05:00 Ammonia 60 umol/L (16-53) H 01/06/18 05:00 B-Natriuretic Peptide 114.0 pg/mL (5.0-100.0) H 01/06/18 05:00 Total Protein 5.9 gm/dL (6.0-8.3) L 01/06/18 05:00 Albumin 3.0 gm/dL (4.2-5.5) L 01/06/18 05:00 Globulin 2.9 gm/dL 01/06/18 05:00 Albumin/Globulin Ratio 1.0 (1.0-1.8) 01/06/18 05:00 Urine Source [place] 01/04/18 00:55 Urine Color YELLOW 01/04/18 00:55 Urine Clarity HAZY (CLEAR) 01/04/18 00:55 Urine pH 5.5 (4.6 - 8.0) 01/04/18 00:55 Ur Specific [place] 1.025 (1.005-1.030) 01/04/18 00:55 Urine Protein >=300 mg/dL (NEGATIVE) 01/04/18 00:55 Urine Glucose (UA) 500 mg/dL (NEGATIVE) H 01/04/18 00:55 Urine Ketones NEGATIVE mg/dL (NEGATIVE) 01/04/18 00:55 Urine Blood MODERATE (NEGATIVE) H 01/04/18 00:55 Urine Nitrate POSITIVE (NEGATIVE) H 01/04/18 00:55 Urine Bilirubin NEGATIVE (NEGATIVE) 01/04/18 00:55 Urine Urobilinogen 0.2 E.U./dL (0.2 - 1.0) 01/04/18 00:55 Ur Leukocyte Esterase NEGATIVE (NEGATIVE) 01/04/18 00:55 Urine RBC 0-2 /hpf (0-5) H 01/04/18 00:55 Urine WBC 6-10 /hpf (0-5) 01/04/18 00:55 Ur Epithelial Cells NONE SEEN /lpf (FEW) 01/04/18 00:55 Urine Bacteria MANY /hpf (NONE SEEN) H 01/04/18 00:55 Ur Random Sodium 36 mmol/L 01/05/18 18:00 Urine Creatinine 261.0 mg/dl (39.0-259.0) H 01/05/18 18:00 Microalb/Creat Ratio 1711.1 mg/g creat (0.0-30.0) H 01/05/18 18:00 - Physical Exam Vitals and I&O: Vital Signs Temp 97.7 F 01/06/18 11:00 Pulse 48 01/06/18 11:00 Resp 18 01/06/18 11:00 BP 128/59 01/06/18 11:00 Pulse Ox 97 01/06/18 11:00 Intake & Output 01/05/18 01/06/18 01/06/18 18:59 06:59 18:59 Intake Total 150 998.667 Output Total 200 750 Balance -50 248.667 Weight (lbs) 140 lb 6 oz 140 lb Intake: Intake, IV Amount 918.667 Sodium Chloride 0.45% 1, 918.667 000 ml @ 80 mls/hr IV . [id number] [facility] Rx#:[id number] Oral 150 80 Output: Urine 200 750 Other: # Bowel Movements 0 Weight Source Bedscale Bedscale Active Medications: Current Medications Acetaminophen (Tylenol) 650 mg PO Q4H PRN PRN Reason: Pain Or Fever above 101 Stop: 03/05/18 05:04 Last Admin: 01/06/18 08:21 Dose: 650 mg Albuterol Sulfate (Albuterol 2.5mg/3ml Neb Ud) 2.5 mg HHN Q4HR PRN PRN Reason: Shortness of Breath Stop: 03/05/18 05:01 Aspirin (Ecotrin) 81 mg PO DAILY [facility] Stop: 03/05/18 08:59 Last Admin: 01/06/18 08:22 Dose: 81 mg Atorvastatin Calcium (Lipitor) 10 mg GT DAILY [facility]; Protocol Stop: 03/05/18 08:59 Last Admin: 01/06/18 08:22 Dose: 10 mg Finasteride (Proscar) 5 mg GT DAILY [facility]; Protocol Stop: 03/05/18 08:59 Last Admin: 01/06/18 09:28 Dose: 5 mg Glipizide (Glucotrol) 10 mg GT DAILY [facility] Stop: 03/05/18 08:59 Last Admin: 01/06/18 08:22 Dose: 10 mg Sodium Chloride (Nacl 0.45%) 1,000 mls @ 80 mls/hr IV .[id number] REPLACED BY [facility] Stop: 03/06/18 12:29 Last Admin: 01/06/18 00:22 Dose: 80 mls/hr Meropenem 1 gm/ Sodium (Chloride) 100 mls @ 100 mls/hr IV Q12H REPLACED BY [facility] Stop: 03/07/18 15:14 Insulin Aspart (Novolog Insulin Sliding Scale) 0 units SUBQ ACHS [facility]; Protocol Stop: 03/05/18 07:29 Last Admin: 01/06/18 12:00 Dose: 4 units Lactulose (Cephulac) 30 gm PO DAILY [facility] Stop: 03/07/18 08:59 Last Admin: 01/06/18 12:01 Dose: 30 gm Levetiracetam (Keppra) 250 mg PO BID [facility] Stop: 03/05/18 08:59 Last Admin: 01/06/18 08:22 Dose: 250 mg Mupirocin (Bactroban Oint) 1 appl NS BID [facility] Stop: 01/10/18 09:01 Last Admin: 01/06/18 08:19 Dose: 1 appl Nitroglycerin (Nitrostat) 0.4 mg SL Q5MIN PRN PRN Reason: Chest Pain Stop: 03/05/18 05:04 Ondansetron HCl (Zofran) 4 mg IV Q8H PRN PRN Reason: Nausea / Vomiting Stop: 03/05/18 05:04 Pregabalin (Lyrica) 50 mg GT BID [facility]PL[facility] Stop: 03/05/18 08:59 Last Admin: 01/06/18 08:23 Dose: 50 mg Tramadol HCl (Ultram) 50 mg PO Q8HR PRN PRN Reason: Pain (Moderate) Stop: 03/07/18 14:45 General: weak, alert HEENT: NC/AT, PERRLA Neck: Supple Lungs: CTAB Cardiovascular: RRR, Normal S1, Normal S2, without murmur Abdomen: soft, non-tender, non-distended, positive bowel sound Neurological: alert - Procedures Procedures: Procedures Procedure Code Date COLONOSCOPY AND BIOPSY 91637 09/24/05 EGD DIAGNOSTIC BRUSH WASH 60544 09/24/[address] GASTROSTOMY TUBE 54575 01/20/15 ELECTROENCEPHALOGRAM 89.14 09/24/05 ENDOSC POLYPECTOMY OF LG INTEST 45.42 09/24/05 INSERTION OF FEEDING DEVICE INTO STOMACH, PERC APPROACH [id number] 01/20/15 OTHER ENDOSCOPY OF SM INTEST 45.13 09/24/05 PARTIAL REMOVAL OF COLON 40079 01/20/15 REMOVAL OF GALLBLADDER 86807 01/20/15 RESECTION OF DESCENDING COLON, OPEN APPROACH [id number] 01/20/15 RESECTION OF GALLBLADDER, OPEN APPROACH [id number] 01/20/15 SPINAL FLUID TAP DIAGNOSTIC 22151 09/24/05 SPINAL TAP 03.31 09/24/05 Internal Medicine Assmt/Plan - Assessment Assessment: acute uti with klebsiella pneumoniae esbl generalized weakness hyperglycemia syncope multiple falls dm htn hx stroke hypercholesteremia seizures mrsa nares - Plan Plan: wound care change iv to meropenem monitor bun/crea closely ivf for hydration fall precautions pt evaluation follow up labs in am continue current plan of care Nutritional Asmnt/Malnutr-PDOC - Dietary Evaluation Malnutrition Findings (Please click <Entered> for more info): Nutritional Asmnt/Malnutrition Start: 01/04/18 14: 51 Text: Status: Complete Freq: Protocol: Document 01/04/18 15:08 LCHENG (Rec: 01/04/18 15:25 [email or web address] [email or web address]) Nutritional Asmnt/Malnutrition Patient General Information Nutritional Screening High Risk Consult Diagnosis hyperglycemia, syncope Pertinent Medical Hx/Surgical Hx no significant medical hx per ER note Subjective Information pt seen sleeping in bed at time of visit. consult received for BS 306 at admission and [place] score 12. Per nurse, pt has Gtube in place only for medication. Pt is able to take oral diet, good appetite. Current Diet Order/ Nutrition Support low sodium Pertinent Medications lipitor, glucotrol, novolog Pertinent Labs 01/04 Na 133, Cr 1.4, glucose 315, POC 206-304, alb 3.9 Nutritional Hx/Data Height 5 ft 6 in Height (Calculated Centimeters) 167.6 Current Weight (lbs) 165 lb Weight (Calculated Kilograms) 74.8 Weight (Calculated Grams) 03703.7 [place] Body Weight 142 Body Mass Index (BMI) 26.6 Weight Status Overweight GI Symptoms GI Symptoms None Last BM not indicated Difficult in: None Skin Integrity/Comment: scar to buttocks, dry wound to right big toe [place] 12 Estimated Nutritional Goals Calories/Kcals/Kg 25-30 Kcals Calculated 8139-9619 Protein g/k Protein Calculated 65 Fluid: ml 1625-1950ml (1ml/kcal) Nutritional Problem 1. Problem Problem altered nutrition related labs Etiology hyperglycemia Signs/Symptoms: glucose 315, POC 206-304 Malnutrition Alert Is there a minimum of two criteria No selected? Query Text:Check all the applicable criteria. A minimum of two criteria are recommended for diagnosis of either severe or non-severe malnutrition. Malnutrition Related to Morbid Obesity Malnutrition related to morbid obesity No Intervention/Recommendation Comments 1. Consider adding CCHO-60gm diet if glucose continue high. 2. Monitor PO intake, wt, labs and skin integrity 3. F/U as high risk in 2-3 days, 01/06-01/07 Expected Outcomes/Goals Expected Outcomes/Goals 1. PO intake to meet at least 75% of nutritional needs. 2. Wt stability, skin to remain intact, labs to approach WNL.
[2018-01-06] MEDS: Meropenem 1 GM in Sodium Chloride 0.9% 100 ML IV SCH (15:17)
[2018-01-07] MEDS: Meropenem 1 GM in Sodium Chloride 0.9% 100 ML IV SCH ×2 (03:58→15:25)
[2018-01-07] MEDS: Sodium Chloride 0.45% 1,000 ML IV SCH (03:59)
[2018-01-07 05:25] LABS: % BASOPHILS 0.6 % (0.0-2.0); % EOSINOPHILS 7.2 % (0.0-5.0); % LYMPHOCYTES 34.2 % (20.0-50.0); EOSINOPHILE ABSOLUTE 0.5 Th/cmm (0.1-0.4); HEMATOCRIT 36.7 % (41.0-60); HEMOGLOBIN 12.2 gm/dL (12-16); LYMPHOCYTE ABSOLUTE 2.3 Th/cmm (1.5-3.0); MEAN CELL VOLUME 88.8 fl (80-99); MEAN CORPUSCULAR HEMOGLOBIN 29.4 pg (27.0-31.0); MEAN CORPUSCULAR HGB CONC 33.2 pg (28.0-36.0); MEAN PLATELET VOLUME 7.3 fl; MONOCYTE ABSOLUTE 0.4 Th/cmm (0.3-1.0); NEUTROPHILE ABSOLUTE 3.6 Th/cmm (1.8-8.0); PLATELET COUNT 229 Th/cmm (150-400); RED BLOOD COUNT 4.14 Mil/cmm (3.80-5.80); RED CELL DISTRIBUTION WIDTH 13.2 % (11.5-20.0); WHITE BLOOD COUNT 6.8 Th/cmm (4.8-10.8)
[2018-01-07 05:46] LABS: ANION GAP 10.5 (7.0-16.0); BUN - UREA NITROGEN 24 mg/dL (7-25); CALCIUM SERUM 9.2 mg/dL (8.6-10.3); CARBON DIOXIDE 24.7 mEq/L (21.0-31.0); CHLORIDE 108 mEq/L (98-107); CREATININE - SERUM 1.4 mg/dL (0.7-1.3); GLUCOSE 179 mg/dL (70-105); MAGNESIUM 1.7 mg/dL (1.9-2.7); POTASSIUM SERUM 4.2 mEq/L (3.5-5.1); SODIUM SERUM 139 mEq/L (136-145)
[2018-01-07] MEDS: INSULIN ASPART SLIDING SCALE 100 UNITS/ML UNIT SUBQ SCH ×2 (07:06→11:47)
[2018-01-07] MEDS: Atorvastatin Calcium 10 MG TAB GT SCH (08:33)
[2018-01-07] MEDS: Lactulose 10 Gm/15 mL 30mL UDC PO SCH (08:34)
--- NOTE | 2018-01-07 10:27 | Internal Medicine Prog Note ---
Internal Medicine Subjective - Subjective Service Date: 01/07/18 Patient seen and examined:: with staff Patient is:: awake, verbal Per staff patient has:: tolerating meds Internal Medicine Objective - Results Result Diagrams: 01/07/18 04:45 01/07/18 04:45 Recent Labs: Laboratory Last Values WBC 6.8 Th/cmm (4.8-10.8) 01/07/18 04:45 RBC 4.14 Mil/cmm (3.80-5.80) 01/07/18 04:45 Hgb 12.2 gm/dL (12-16) 01/07/18 04:45 Hct 36.7 % (41.0-60) L 01/07/18 04:45 MCV 88.8 fl (80-99) 01/07/18 04:45 MCH 29.4 pg (27.0-31.0) 01/07/18 04:45 MCHC Differential 33.2 pg (28.0-36.0) 01/07/18 04:45 RDW 13.2 % (11.5-20.0) 01/07/18 04:45 Plt Count 229 Th/cmm (150-400) 01/07/18 04:45 MPV 7.3 fl 01/07/18 04:45 Neutrophils % 52.0 % (40.0-80.0) 01/07/18 04:45 Lymphocytes % 34.2 % (20.0-50.0) 01/07/18 04:45 Monocytes % 6.0 % (2.0-10.0) 01/07/18 04:45 Eosinophils % 7.2 % (0.0-5.0) H 01/07/18 04:45 Basophils % 0.6 % (0.0-2.0) 01/07/18 04:45 Eos Smear Source URINE 01/05/18 18:00 Eos Smear Total Cells NONE SEEN (NONE SEEN) 01/05/18 18:00 Sodium 139 mEq/L (136-145) 01/07/18 04:45 Potassium 4.2 mEq/L (3.5-5.1) 01/07/18 04:45 Chloride 108 mEq/L (98-107) H 01/07/18 04:45 Carbon Dioxide 24.7 mEq/L (21.0-31.0) 01/07/18 04:45 Anion Gap 10.5 (7.0-16.0) 01/07/18 04:45 BUN 24 mg/dL (7-25) 01/07/18 04:45 Creatinine 1.4 mg/dL (0.7-1.3) H 01/07/18 04:45 Est GFR ( Amer) TNP 01/07/18 04:45 Est GFR (Non-Af Amer) TNP 01/07/18 04:45 BUN/Creatinine Ratio 17.1 01/07/18 04:45 Glucose 179 mg/dL (70-105) H 01/07/18 04:45 POC Glucose 179 MG/DL (70 - 105) H 01/07/18 06:46 Calcium 9.2 mg/dL (8.6-10.3) 01/07/18 04:45 Phosphorus 3.9 mg/dL (2.5-5.0) 01/06/18 05:00 Magnesium 1.7 mg/dL (1.9-2.7) L 01/07/18 04:45 Total Bilirubin 0.3 mg/dL (0.3-1.0) 01/06/18 05:00 AST 17 U/L (13-39) 01/06/18 05:00 ALT 17 U/L (7-52) 01/06/18 05:00 Alkaline Phosphatase 69 U/L (34-104) 01/06/18 05:00 Ammonia 60 umol/L (16-53) H 01/06/18 05:00 B-Natriuretic Peptide 114.0 pg/mL (5.0-100.0) H 01/06/18 05:00 Total Protein 5.9 gm/dL (6.0-8.3) L 01/06/18 05:00 Albumin 3.0 gm/dL (4.2-5.5) L 01/06/18 05:00 Globulin 2.9 gm/dL 01/06/18 05:00 Albumin/Globulin Ratio 1.0 (1.0-1.8) 01/06/18 05:00 Urine Source [place] 01/04/18 00:55 Urine Color YELLOW 01/04/18 00:55 Urine Clarity HAZY (CLEAR) 01/04/18 00:55 Urine pH 5.5 (4.6 - 8.0) 01/04/18 00:55 Ur Specific [place] 1.025 (1.005-1.030) 01/04/18 00:55 Urine Protein >=300 mg/dL (NEGATIVE) 01/04/18 00:55 Urine Glucose (UA) 500 mg/dL (NEGATIVE) H 01/04/18 00:55 Urine Ketones NEGATIVE mg/dL (NEGATIVE) 01/04/18 00:55 Urine Blood MODERATE (NEGATIVE) H 01/04/18 00:55 Urine Nitrate POSITIVE (NEGATIVE) H 01/04/18 00:55 Urine Bilirubin NEGATIVE (NEGATIVE) 01/04/18 00:55 Urine Urobilinogen 0.2 E.U./dL (0.2 - 1.0) 01/04/18 00:55 Ur Leukocyte Esterase NEGATIVE (NEGATIVE) 01/04/18 00:55 Urine RBC 0-2 /hpf (0-5) H 01/04/18 00:55 Urine WBC 6-10 /hpf (0-5) 01/04/18 00:55 Ur Epithelial Cells NONE SEEN /lpf (FEW) 01/04/18 00:55 Urine Bacteria MANY /hpf (NONE SEEN) H 01/04/18 00:55 Ur Random Sodium 36 mmol/L 01/05/18 18:00 Urine Creatinine 261.0 mg/dl (39.0-259.0) H 01/05/18 18:00 Microalb/Creat Ratio 1711.1 mg/g creat (0.0-30.0) H 01/05/18 18:00 - Physical Exam Vitals and I&O: Vital Signs Temp 96.8 F 01/07/18 08:00 Pulse 48 01/07/18 08:00 Resp 17 01/07/18 08:00 BP 181/79 01/07/18 08:00 Pulse Ox 97 01/07/18 08:00 Intake & Output 01/06/18 01/07/18 01/07/18 18:59 06:59 18:59 Intake Total 1820 1000 250 Output Total 1100 2700 Balance 720 1000 -2450 Weight (lbs) 154 lb 6.4 oz 153 lb Intake: Intake, IV Amount 1100 1000 Meropenem 1 gm In Sodium 100 Chloride 0.9% 100 ml @ 100 mls/hr IV Q12H [facility] Rx #:[id number] Sodium Chloride 0.45% 1, 1000 1000 000 ml @ 80 mls/hr IV . [id number] [facility] Rx#:[id number] Oral 720 Other 250 Output: Urine 1100 2700 Other: # Bowel Movements 1 0 Weight Source Bedscale Bedscale Active Medications: Current Medications Acetaminophen (Tylenol) 650 mg PO Q4H PRN PRN Reason: Pain Or Fever above 101 Stop: 03/05/18 05:04 Last Admin: 01/06/18 08:21 Dose: 650 mg Albuterol Sulfate (Albuterol 2.5mg/3ml Neb Ud) 2.5 mg HHN Q4HR PRN PRN Reason: Shortness of Breath Stop: 03/05/18 05:01 Aspirin (Ecotrin) 81 mg PO DAILY [facility] Stop: 03/05/18 08:59 Last Admin: 01/07/18 08:37 Dose: 81 mg Atorvastatin Calcium (Lipitor) 10 mg GT DAILY [facility]; Protocol Stop: 03/05/18 08:59 Last Admin: 01/07/18 08:33 Dose: 10 mg Finasteride (Proscar) 5 mg GT DAILY [facility]; Protocol Stop: 03/05/18 08:59 Last Admin: 01/07/18 08:33 Dose: 5 mg Glipizide (Glucotrol) 10 mg GT DAILY [facility] Stop: 03/05/18 08:59 Last Admin: 01/07/18 08:33 Dose: 10 mg Sodium Chloride (Nacl 0.45%) 1,000 mls @ 80 mls/hr IV .[id number] [facility] Stop: 03/06/18 12:29 Last Admin: 01/07/18 03:59 Dose: 80 mls/hr Meropenem 1 gm/ Sodium (Chloride) 100 mls @ 100 mls/hr IV Q12H [facility] Stop: 03/07/18 15:59 Last Admin: 01/07/18 03:58 Dose: 100 mls/hr Insulin Aspart (Novolog Insulin Sliding Scale) 0 units SUBQ ACHS [facility]; Protocol Stop: 03/05/18 07:29 Last Admin: 01/07/18 07:06 Dose: 2 units Lactulose (Cephulac) 30 gm PO DAILY [facility] Stop: 03/07/18 08:59 Last Admin: 01/07/18 08:34 Dose: 30 gm Levetiracetam (Keppra) 250 mg PO BID [facility] Stop: 03/05/18 08:59 Last Admin: 01/07/18 08:33 Dose: 250 mg Mupirocin (Bactroban Oint) 1 appl NS BID [facility] Stop: 01/10/18 09:01 Last Admin: 01/07/18 08:37 Dose: 1 appl Nitroglycerin (Nitrostat) 0.4 mg SL Q5MIN PRN PRN Reason: Chest Pain Stop: 03/05/18 05:04 Ondansetron HCl (Zofran) 4 mg IV Q8H PRN PRN Reason: Nausea / Vomiting Stop: 03/05/18 05:04 Pregabalin (Lyrica) 50 mg GT BID [facility] Stop: 03/05/18 08:59 Last Admin: 01/07/18 08:33 Dose: 50 mg Tramadol HCl (Ultram) 50 mg PO Q8HR PRN PRN Reason: Pain (Moderate) Stop: 03/07/18 14:45 Last Admin: 01/06/18 16:44 Dose: 50 mg General: weak, alert HEENT: NC/AT, PERRLA Neck: Supple Lungs: CTAB Cardiovascular: RRR, Normal S1, Normal S2, without murmur Abdomen: soft, non-tender, non-distended, positive bowel sound Neurological: alert - Procedures Procedures: Procedures Procedure Code Date COLONOSCOPY AND BIOPSY 00714 09/24/05 EGD DIAGNOSTIC BRUSH WASH 67675 09/24/[address] GASTROSTOMY TUBE 80009 01/20/15 ELECTROENCEPHALOGRAM 89.14 09/24/05 ENDOSC POLYPECTOMY OF LG INTEST 45.42 09/24/05 INSERTION OF FEEDING DEVICE INTO STOMACH, PERC APPROACH [id number] 01/20/15 OTHER ENDOSCOPY OF SM INTEST 45.13 09/24/05 PARTIAL REMOVAL OF COLON 73117 01/20/15 REMOVAL OF GALLBLADDER 70941 01/20/15 RESECTION OF DESCENDING COLON, OPEN APPROACH [id number] 01/20/15 RESECTION OF GALLBLADDER, OPEN APPROACH [id number] 01/20/15 SPINAL FLUID TAP DIAGNOSTIC 75030 09/24/05 SPINAL TAP 03.31 09/24/05 Internal Medicine Assmt/Plan - Assessment Assessment: acute uti with klebsiella pneumoniae esbl generalized weakness hyperglycemia syncope multiple falls dm htn hx stroke hypercholesteremia seizures mrsa nares - Plan Plan: awaiting for bed at [facility] wound care continue iv to meropenem monitor bun/crea closely ivf for hydration fall precautions pt evaluation follow up labs in am continue current plan of care Nutritional Asmnt/Malnutr-PDOC - Dietary Evaluation Malnutrition Findings (Please click <Entered> for more info): Nutritional Asmnt/Malnutrition Start: 01/04/18 14: 51 Text: Status: Complete Freq: Protocol: Document 01/04/18 15:08 JANELL (Rec: 01/04/18 15:25 HEN [email or web address]) Nutritional Asmnt/Malnutrition Patient General Information Nutritional Screening High Risk Consult Diagnosis hyperglycemia, syncope Pertinent Medical Hx/Surgical Hx no significant medical hx per ER note Subjective Information pt seen sleeping in bed at time of visit. consult received for BS 306 at admission and manuela score 12. Per nurse, pt has Gtube in place only for medication. Pt is able to take oral diet, good appetite. Current Diet Order/ Nutrition Support low sodium Pertinent Medications lipitor, glucotrol, novolog Pertinent Labs 01/04 Na 133, Cr 1.4, glucose 315, POC 206-304, alb 3.9 Nutritional Hx/Data Height 5 ft 6 in Height (Calculated Centimeters) 167.6 Current Weight (lbs) 165 lb Weight (Calculated Kilograms) 74.8 Weight (Calculated Grams) 57023.7 [place] Body Weight 142 Body Mass Index (BMI) 26.6 Weight Status Overweight GI Symptoms GI Symptoms None Last BM not indicated Difficult in: None Skin Integrity/Comment: scar to buttocks, dry wound to right big toe Manuela 12 Estimated Nutritional Goals Calories/Kcals/Kg 25-30 Kcals Calculated 6347-4747 Protein g/k Protein Calculated 65 Fluid: ml 1625-1950ml (1ml/kcal) Nutritional Problem 1. Problem Problem altered nutrition related labs Etiology hyperglycemia Signs/Symptoms: glucose 315, POC 206-304 Malnutrition Alert Is there a minimum of two criteria No selected? Query Text:Check all the applicable criteria. A minimum of two criteria are recommended for diagnosis of either severe or non-severe malnutrition. Malnutrition Related to Morbid Obesity Malnutrition related to morbid obesity No Intervention/Recommendation Comments 1. Consider adding CCHO-60gm diet if glucose continue high. 2. Monitor PO intake, wt, labs and skin integrity 3. F/U as high risk in 2-3 days, 01/06-01/07 Expected Outcomes/Goals Expected Outcomes/Goals 1. PO intake to meet at least 75% of nutritional needs. 2. Wt stability, skin to remain intact, labs to approach WNL.
== END 2018-01-07 16:30 | DRG 689 ==
LOC: ER 00:03 → TELE 04:05
PROVIDERS: ADMIT Internal Medicine; ATTEND Internal Medicine
DX: N39.0 Urinary tract infection, site not specified (principal); G93.41 Metabolic encephalopathy; E87.1 Hypo-osmolality and hyponatremia; I69.354 Hemiplegia and hemiparesis following cerebral infarction affecting left non-dominant side; E87.2 Acidosis; E11.65 Type 2 diabetes mellitus with hyperglycemia; E78.5 Hyperlipidemia, unspecified; E78.00 Pure hypercholesterolemia, unspecified; R55 Syncope and collapse; N18.9 Chronic kidney disease, unspecified; I12.9 Hypertensive chronic kidney disease with stage 1 through stage 4 chronic kidney disease, or unspecified chronic kidney disease; E11.22 Type 2 diabetes mellitus with diabetic chronic kidney disease; G40.909 Epilepsy, unspecified, not intractable, without status epilepticus; E11.21 Type 2 diabetes mellitus with diabetic nephropathy; N40.0 Benign prostatic hyperplasia without lower urinary tract symptoms; B96.1 Klebsiella pneumoniae [K. pneumoniae] as the cause of diseases classified elsewhere; Z16.12 Extended spectrum beta lactamase (ESBL) resistance; Z83.3 Family history of diabetes mellitus; Z91.81 History of falling
CPT/HCPCS: 36415-UA; 70450-TC; 71045-TC; 76770-TC; 80048-TC; 80053-TC; 81001-TC; 81015-TC; 82043-90; 82140-TC; 82570-TC; 82948-90; 83036-90; 83735-TC; 83880-TC; 84100-TC; 84300-TC; 85025-TC; 87086-90; 90732; 93005; 93880-TC; 94640; 94760; J0696; J1815; J2185; J2543; Z7610

== ENCOUNTER 2018-07-13 16:32 | Inpatient (IN) | payer MEDICARE, MEDICAID ==
--- NOTE | 2018-07-13 17:55 | ED Physician Chart ---
ED Chief Complaint/HPI - Patient Information Date Seen:: 07/13/18 Time Seen:: 16:50 Chief Complaint:: AMS History of Present Illness:: onset x one day of AMS, ALOC, fever, cough, and congestion; no report of trauma , H/As, neck pain, C/P, SOB, Abd. Pain, A/N/V/D/c, chills, or urinary s/s Allergies:: Allergies Allergy/AdvReac Type Severity Reaction Status Date / Time shrimp Allergy Verified 01/04/18 01:32 Vitals:: Vital Signs - 8 hr 07/13/18 16:50 Temp 96.9 F HR 70 RR 18 BP 136/69 O2 Sat % 94 Historian:: Patient, EMS Review:: Nurse's Note Reviewed, Old Chart Reviewed, EMS run form Reviewed <Richie San - Last Filed: 07/13/18 18:09> - Patient Information Allergies:: Allergies Allergy/AdvReac Type Severity Reaction Status Date / Time shrimp Allergy Verified 01/04/18 01:32 Vitals:: Vital Signs - 8 hr 07/13/18 07/13/18 16:50 19:30 Temp 96.9 F 96.9 F HR 70 58 RR 18 16 BP 136/69 143/64 O2 Sat % 94 99 <Kwan Lindsay - Last Filed: 07/13/18 21:35> ED Review of Systems - Review of Systems General/Constitutional: Fever, No chills, No weight loss, No weakness, No diaphoresis, No edema, No loss of appetite Skin: No skin lesions, No rash, No bruising Head: No headache, No light-headedness Eyes: No loss of vision, No pain, No diplopia ENT: No earache, No nasal drainage, No sore throat, No tinnitus Neck: No neck pain, No swelling, No thyromegaly, No stiffness, No mass noted Cardio Vascular: No chest pain, No palpitations, No PND, No orthopnea, No edema Pulmonary: No SOB, Cough, No sputum, No wheezing GI: No nausea, No vomiting, No diarrhea, No pain, No melena, No hematochezia, No constipation, No hematemesis G/U: No dysuria, No frequency, No hematuria, No nacturia Musculoskeletal: No bone or joint pain, No back pain, No muscle pain Endocrine: No polyuria, No polydipsia Psychiatric: No prior psych history, No depression, No anxiety, No suicidal ideation, No homicidal ideation, No auditory hallucination, No visual hallucination Hematopoietic: No bruising, No lymphadenopathy Allergic/Immuno: No urticaria, No angioedema Neurological: No syncope, No focal symptoms, No weakness, No paresthesia, No headache, Seizure, No dizziness, Confusion, No vertigo <Richie San Filed: 07/13/18 18:09> ED Past Medical History - Past Medical History Obtainable: Yes Past Medical History: HTN, DM, CAD, Asthma/COPD, CVA/TIA, Dyslipidemia, Seizures Family History: HTN Social History: Non Smoker, No Alcohol, No Drug Use, , Care Facility Surgical History: None Psychiatricy History: None Medication: Reviewed <Richie San Filed: 07/13/18 18:09> Family Medical History - Family Member Brother History Unknown: Yes Ethnicity: Non- Living Status: Still Living Mother History Unknown: Yes Ethnicity: Non- Living Status: Hx Family Cancer: No Hx Family Coronary Artery Disease: No Hx Family Congestive Heart Failure: No Hx Family Hypertension: No Hx Family Stroke: No Hx Family Diabetes: Yes Hx Family Seizures: No Hx Family Dementia: No Hx Family AIDS: No Hx Family HIV: No Hx Family COPD: No Hx Family Hepatitis: No Hx Family Psychiatric Problems: No Hx Family Tuberculosis: No <Richie San Filed: 07/13/18 18:09> ED Physical Exam - Physical Examination General/Constitutional: Awake, Well-developed, well-nourished, Alert, No distress, GCS 15, Non-toxic appearing, Ambulatory Head: Atraumatic Eyes: Lids, conjuctiva normal, PERRL, EOMI Skin: Nl inspection, No rash, No skin lesions, No ecchymosis, Well hydrated, No lymphadenopathy ENMT: External ears, nose nl, TM canals nl, Nasal exam nl, Lips, teeth, gums nl , Oropharynx nl, Tonsils nl Neck: Nontender, Full ROM w/o pain, No JVD, No nuchal rigidity, No bruit, No mass, No stridor Respiratory: Nl effort/Exclusion, Clear to Auscultation, No Wheeze/Rhonchi/Rales Cardio Vascular: RRR, No murmur, gallop, rubs, NL S1 S2, Carotid/Femoral/Distal pulses equal bilaterally GI: No tenderness/rebounding/guarding, No organomegaly, No hernia, Normal BS's, Nondistended, No mass/bruits, No McBurney tenderness : No CVA tenderness Extremities: No tenderness or effusion, Full ROM, normal strength in all extremities, No edema, Normal digits & nails Neuro/Psych: Alert/oriented, DTR's symmetric, Normal sensory exam, Normal motor strength, Judgement/insight normal, Mood normal, Normal gait, No focal deficits Misc: Normal back, No paraspinal tenderness <Richie San - Last Filed: 07/13/18 18:09> ED Labs/Radiology/EKG Results - Lab Results Comments:: Reviewed - EKG Interpretations EKG Time:: 17:41 Rate & Rhythm: 66; NSR Comments:: non-specific st-t changes <Richie San - Last Filed: 07/13/18 18:09> - Lab Results Results: Laboratory Tests 07/13/18 07/13/18 07/13/18 17:54 17:54 17:54 WBC 14.6 H RBC 4.11 Hgb 12.2 Hct 36.8 L MCV 89.5 MCH 29.7 MCHC Differential 33.2 RDW 12.4 Plt Count 275 MPV 6.8 Add Manual Diff YES Neutrophils % CDL [employer] Band Neutrophils % 4 Lymphocytes % CDL [employer] Monocytes % CDL [employer] Eosinophils % CDL [employer] Basophils % CDL [employer] Neutrophils (Manual) 70 Lymphocytes 18 L Monocytes 5 Eosinophils 3 PT 10.1 INR 0.97 PTT (Actin FS) 33.6 Sodium 135 L Potassium 3.7 Chloride 101 Carbon Dioxide 21.7 Anion Gap 16.0 BUN 27 H Creatinine 1.7 H Est GFR ( Amer) TNP Est GFR (Non-Af Amer) TNP BUN/Creatinine Ratio 15.9 Glucose 265 H Whole Bld Lactic Acid Calcium 9.8 Total Bilirubin 0.3 AST 14 ALT 13 Alkaline Phosphatase 90 Creatine Kinase 41 Troponin I Total Protein 7.6 Albumin 3.9 L Globulin 3.7 Albumin/Globulin Ratio 1.1 Amylase Lipase Urine Source Urine Color Urine Clarity Urine pH Ur Specific [place] Urine Protein Urine Glucose (UA) Urine Ketones Urine Blood Urine Nitrate Urine Bilirubin Urine Urobilinogen Ur Leukocyte Esterase Urine RBC Urine WBC Ur Epithelial Cells Urine Bacteria Coarse Granular Casts 07/13/18 07/13/18 07/13/18 17:54 17:54 19:45 WBC RBC Hgb Hct MCV MCH MCHC Differential RDW Plt Count MPV Add Manual Diff Neutrophils % Band Neutrophils % Lymphocytes % Monocytes % Eosinophils % Basophils % Neutrophils (Manual) Lymphocytes Monocytes Eosinophils PT INR PTT (Actin FS) Sodium Potassium Chloride Carbon Dioxide Anion Gap BUN Creatinine Est GFR ( Amer) Est GFR (Non-Af Amer) BUN/Creatinine Ratio Glucose Whole Bld Lactic Acid 2.27 H* Calcium Total Bilirubin AST ALT Alkaline Phosphatase Creatine Kinase Troponin I 0.01 Total Protein Albumin Globulin Albumin/Globulin Ratio Amylase 62 Lipase 17 Urine Source [place] Urine Color YELLOW Urine Clarity CLEAR Urine pH 6.0 Ur Specific [place] 1.020 Urine Protein >=300 Urine Glucose (UA) 100 H Urine Ketones NEGATIVE Urine Blood TRACE Urine Nitrate NEGATIVE Urine Bilirubin NEGATIVE Urine Urobilinogen 0.2 Ur Leukocyte Esterase NEGATIVE Urine RBC 2-5 H Urine WBC 0-2 Ur Epithelial Cells FEW Urine Bacteria 1+ H Coarse Granular Casts 0-2 H 07/13/18 20:12 WBC RBC Hgb Hct MCV MCH MCHC Differential RDW Plt Count MPV Add Manual Diff Neutrophils % Band Neutrophils % Lymphocytes % Monocytes % Eosinophils % Basophils % Neutrophils (Manual) Lymphocytes Monocytes Eosinophils PT INR PTT (Actin FS) Sodium Potassium Chloride Carbon Dioxide Anion Gap BUN Creatinine Est GFR ( Amer) Est GFR (Non-Af Amer) BUN/Creatinine Ratio Glucose Whole Bld Lactic Acid 1.98 Calcium Total Bilirubin AST ALT Alkaline Phosphatase Creatine Kinase Troponin I Total Protein Albumin Globulin Albumin/Globulin Ratio Amylase Lipase Urine Source Urine Color Urine Clarity Urine pH Ur Specific [place] Urine Protein Urine Glucose (UA) Urine Ketones Urine Blood Urine Nitrate Urine Bilirubin Urine Urobilinogen Ur Leukocyte Esterase Urine RBC Urine WBC Ur Epithelial Cells Urine Bacteria Coarse Granular Casts <Kwan Lindsay - Last Filed: 07/13/18 21:35> ED Septic Shock - . Is Septic Shock (SBP<90, OR Lactate>4 mmol\L) present?: No - <6hrs of presentation: Vital Signs: Vital Signs - 8 hr 07/13/18 16:50 Temp 96.9 F HR 70 RR 18 BP 136/69 O2 Sat % 94 <Richie San - Last Filed: 07/13/18 18:09> - . Is Septic Shock (SBP<90, OR Lactate>4 mmol\L) present?: No - <6hrs of presentation: Vital Signs: Vital Signs - 8 hr 07/13/18 07/13/18 16:50 19:30 Temp 96.9 F 96.9 F HR 70 58 RR 18 16 BP 136/69 143/64 O2 Sat % 94 99 <Kwan Lindsay - Last Filed: 07/13/18 21:35> ED Reassessment (Disposition) - Reassessment Reassessment Condition:: Improved - Diagnosis Diagnosis:: ALOC; AMS <Richie San - Last Filed: 07/13/18 18:09> - Patient Disposition Admitted to:: Telemetry Spoke to:: Antoni Ramos Admitting Medical Physician:: Antoni Ramos Condition at Disposition:: Stable, Unchanged <Kwan Lindsay - Last Filed: 07/13/18 21:35>
[2018-07-13 18:15] LABS: INR 0.97 (0.5-1.4); PROTHROMBIN TIME (TEST) 10.1 SECONDS (9.5-11.5)
[2018-07-13 18:19] LABS: ALB/GLOB RATIO 1.1 (1.0-1.8); ALBUMIN 3.9 gm/dL (4.2-5.5); ALKALINE PHOSPHATASE 90 U/L (34-104); BILIRUBIN,TOTAL 0.3 mg/dL (0.3-1.0); BUN - UREA NITROGEN 27 mg/dL (7-25); CALCIUM SERUM 9.8 mg/dL (8.6-10.3); CARBON DIOXIDE 21.7 mEq/L (21.0-31.0); CHLORIDE 101 mEq/L (98-107); CREATININE - SERUM 1.7 mg/dL (0.7-1.3); CREATININE KINASE 41 U/L (30-223); GLUCOSE 265 mg/dL (70-105); POTASSIUM SERUM 3.7 mEq/L (3.5-5.1); SGOT 14 U/L (13-39); SGPT/ALT 13 U/L (7-52); SODIUM SERUM 135 mEq/L (136-145); TOTAL PROTEIN,SERUM 7.6 gm/dL (6.0-8.3)
[2018-07-13 18:20] LABS: TROP I 0.01 ng/mL (0.01-0.05)
[2018-07-13 18:37] LABS: HEMATOCRIT 36.8 % (41.0-60); HEMOGLOBIN 12.2 gm/dL (12-16); MEAN CELL VOLUME 89.5 fl (80-99); MEAN CORPUSCULAR HEMOGLOBIN 29.7 pg (27.0-31.0); MEAN CORPUSCULAR HGB CONC 33.2 pg (28.0-36.0); MEAN PLATELET VOLUME 6.8 fl; PLATELET COUNT 275 Th/cmm (150-400); RED BLOOD COUNT 4.11 Mil/cmm (3.80-5.80); RED CELL DISTRIBUTION WIDTH 12.4 % (11.5-20.0); WHITE BLOOD COUNT 14.6 Th/cmm (4.8-10.8)
[2018-07-13] MEDS ORDERED: Sodium Chloride 0.9% 1,000 ML IV ONE (18:47)
[2018-07-13 19:01] LABS: AMYLASE SERUM 62 U/L (29-103); LIPASE 17 U/L (11-82)
[2018-07-13 19:18] LABS: BAND NEUTROPHILE 4 % (0-10); NEUTROPHILS 70 % (40-80)
[2018-07-13 19:19] LABS: EOSINOPHIL 3 % (0-5); LYMPHOCYTE 18 % (20-50); MONOCYTE 5 % (2-10)
[2018-07-13 20:14] LABS: URINE SOURCE MIDSTREAM
[2018-07-13 20:15] LABS: URINE BILIRUBIN NEGATIVE (NEGATIVE); URINE BLOOD TRACE (NEGATIVE); URINE GLUCOSE (UA) 100 mg/dL (NEGATIVE); URINE KETONE NEGATIVE (NEGATIVE); URINE LEUKOCYTE ESTERASE NEGATIVE (NEGATIVE); URINE MICROSCOPIC INDICATED? YES; URINE NITRATE NEGATIVE (NEGATIVE); URINE PROTEIN >=300 mg/dL (NEGATIVE); URINE UROBILINOGEN 0.2 E.U./dL (0.2 - 1.0)
[2018-07-13 20:46] LABS: URINE CLARITY CLEAR (CLEAR); URINE COLOR YELLOW
[2018-07-13 20:49] LABS: URINE BACTERIA 1+ /hpf (NONE SEEN); URINE EPITHELIAL CELLS FEW /lpf (FEW); URINE WBC 0-2 /hpf (0-5)
[2018-07-13 20:50] LABS: URINE COARSE GRANULAR CAST 0-2 /lpf (NONE SEEN)
[2018-07-13] MEDS ORDERED: Albuterol Nebulizer 2.5mg/3mL HHN PRN (22:49)
[2018-07-13] MEDS ORDERED: Non-Formulary Item 1 EA (Albuterol Sulfate [Proair Respiclick] 2 PUFF) IH PRN (22:49)
[2018-07-13] MEDS ORDERED: GLUCAGON HCl 1 MG KIT IM PRN (22:55)
[2018-07-13] MEDS ORDERED: Dextrose 50% 50 mL Abboject IVP PRN (22:55)
[2018-07-13 23:44] VITALS: BP 154/63
[2018-07-14] MEDS: Sodium Chloride 0.45% 1,000 ML IV SCH ×2 (01:31→16:48)
[2018-07-14] MEDS: INSULIN LISPRO SLIDING SCALE 100 UNITS/ML UNIT SUBQ SCH ×4 (06:29→20:30)
[2018-07-14 06:48] LABS: % BASOPHILS 0.5 % (0.0-2.0); % EOSINOPHILS 1.8 % (0.0-5.0); % LYMPHOCYTES 13.2 % (20.0-50.0); % NEUTROPHILS 77.5 % (40.0-80.0); EOSINOPHILE ABSOLUTE 0.2 Th/cmm (0.1-0.4); HEMOGLOBIN 12.2 gm/dL (12-16); LYMPHOCYTE ABSOLUTE 1.1 Th/cmm (1.5-3.0); MEAN CELL VOLUME 88.8 fl (80-99); MEAN CORPUSCULAR HGB CONC 33.8 pg (28.0-36.0); MEAN PLATELET VOLUME 6.9 fl; MONOCYTE ABSOLUTE 0.6 Th/cmm (0.3-1.0); NEUTROPHILE ABSOLUTE 6.6 Th/cmm (1.8-8.0); PLATELET COUNT 248 Th/cmm (150-400); RED BLOOD COUNT 4.05 Mil/cmm (3.80-5.80); RED CELL DISTRIBUTION WIDTH 12.4 % (11.5-20.0)
[2018-07-14 06:50] LABS: ANION GAP 14.1 (7.0-16.0); BUN - UREA NITROGEN 28 mg/dL (7-25); CALCIUM SERUM 9.4 mg/dL (8.6-10.3); CARBON DIOXIDE 22.5 mEq/L (21.0-31.0); CHLORIDE 102 mEq/L (98-107); CREATININE - SERUM 1.7 mg/dL (0.7-1.3); GLUCOSE 256 mg/dL (70-105); POTASSIUM SERUM 4.6 mEq/L (3.5-5.1); SODIUM SERUM 134 mEq/L (136-145)
[2018-07-14 06:53] LABS: WHITE BLOOD COUNT 8.5 Th/cmm (4.8-10.8)
[2018-07-14] MEDS: Ipratropium Neb 0.5 mg/2.5 mL UD HHN SCH ×4 (07:13→19:30)
[2018-07-14] MEDS: Albuterol Nebulizer 2.5mg/3mL HHN SCH ×4 (07:14→19:30)
--- NOTE | 2018-07-14 08:24 | Diagnostic Imaging Report ---
Exam: Chest x-ray HISTORY: Pneumonia Prior exam: 07/13/2018 Findings: Frontal examination of chest was reviewed. The study demonstrates cardiomegaly. No acute pulmonic infiltrates, the costophrenic angles are clear. Bony thorax intact. The aortic arch calcified. IMPRESSION: Cardiomegaly, no acute disease.
[2018-07-14] MEDS: Atorvastatin Calcium 10 MG TAB GT SCH (08:26)
[2018-07-14] MEDS: Diltiazem 30 mg Tab GT SCH ×2 (08:27→16:53)
[2018-07-14] MEDS: Pantoprazole 40 mg/Packet GT SCH (08:28)
--- NOTE | 2018-07-14 08:45 | Diagnostic Imaging Report ---
Exam: Chest x-ray HISTORY: Pain Prior exam: 01/04/2018 Findings: Frontal examination of chest reviewed. The study demonstrates atelectatic changes in left base. Mediastinal structures midline. Bony thorax remarkable for degenerative changes. There is evidence of COPD changes. Aortic arch calcified. IMPRESSION: COPD changes. Left basilar atelectasis. Left base infiltrate cannot be excluded, if clinically indicated follow-up exam is recommended.
[2018-07-14] MEDS ORDERED: Vancomycin HCl 1.5 GM in Sodium Chloride 0.9% 500 ML IV ONE (10:00)
--- NOTE | 2018-07-14 13:13 | History & Physical ---
ADMIT DATE: 07/14/2018 CHIEF COMPLAINT: Acting confused, fever, cough. HISTORY OF PRESENT ILLNESS: This is a 77-year-old [place]ag[place] male with a history of diabetes, history of stroke, left-sided weakness, hypertension, hypercholesterolemia, BPH, depression, admitted secondary to above complaints. The patient was evaluated and noted to have elevated lactic acid as well as elevated white count. The patient may require management. PAST MEDICAL HISTORY: As mentioned in the history of present illness. PAST SURGICAL HISTORY: Status colostomy in the past. No other surgeries the patient can remember. MEDICATIONS: Lyrica, albuterol, Atrovent, aspirin, atorvastatin, diltiazem, Lexapro, finasteride, glipizide, ibuprofen, Keppra, omeprazole, lorazepam, and Restoril. FAMILY HISTORY: Noncontributory. SOCIAL HISTORY: Avid smoker and drinker in the past. The patient will be in penitentiary. REVIEW OF SYSTEMS: Limited secondary to pain, comatose state. The patient is a poor historian with a touch of dementia according to brother. We will try to get information from Dr. Lehman [phone], alternate number [phone]. We will also try to get information from nursing staff at ____ center at [phone]. PHYSICAL EXAMINATION: VITAL SIGNS: Blood pressure 130/41, respirations 19.8 and pulse 91, temperature 99.1. GENERAL: Elderly male, appears stated age. NECK: Supple. No mass. LUNGS: Equal breath sounds, few rhonchi. HEART: Regular rate and rhythm. Systolic ejection murmur. ABDOMEN: Soft, globular. EXTREMITIES: Positive aspiration with structure atrophy. LABORATORY DATA: WBC 14, ____, hemoglobin 12, platelets 275,000. Sodium 135, potassium 3.7, BUN 27, creatinine 1.7, lactic acid 2.2 and 1.9. ASSESSMENT AND PLAN: Leukocytosis, sepsis, diabetes, stroke with left-sided weakness, hypertension, hypercholesterolemia, major depressive disorder, BPH, and seizure. Continue ____ as well as vancomycin. We will follow patient's blood culture as well as a chest x-ray. We will continue to monitor the patient closely. JOB# [id number]
[2018-07-14] MEDS: Escitalopram Oxalate 5 mg Tab GT SCH (14:18)
[2018-07-15] MEDS: Sodium Chloride 0.45% 1,000 ML IV SCH (05:49)
[2018-07-15 06:17] LABS: % BASOPHILS 1.2 % (0.0-2.0); % EOSINOPHILS 8.8 % (0.0-5.0); % LYMPHOCYTES 18.1 % (20.0-50.0); % MONOCYTES 8.5 % (2.0-10.0); % NEUTROPHILS 63.4 % (40.0-80.0); BASOPHILE ABSOLUTE 0.1 Th/cumm (0-0.2); EOSINOPHILE ABSOLUTE 0.6 Th/cmm (0.1-0.4); HEMATOCRIT 32.6 % (41.0-60); HEMOGLOBIN 10.8 gm/dL (12-16); LYMPHOCYTE ABSOLUTE 1.2 Th/cmm (1.5-3.0); MEAN CORPUSCULAR HEMOGLOBIN 29.8 pg (27.0-31.0); MEAN CORPUSCULAR HGB CONC 33.1 pg (28.0-36.0); MEAN PLATELET VOLUME 6.7 fl; MONOCYTE ABSOLUTE 0.6 Th/cmm (0.3-1.0); NEUTROPHILE ABSOLUTE 4.3 Th/cmm (1.8-8.0); RED BLOOD COUNT 3.62 Mil/cmm (3.80-5.80); RED CELL DISTRIBUTION WIDTH 12.7 % (11.5-20.0); WHITE BLOOD COUNT 6.8 Th/cmm (4.8-10.8)
[2018-07-15 06:25] LABS: PLATELET COUNT 194 Th/cmm (150-400)
[2018-07-15] MEDS: INSULIN LISPRO SLIDING SCALE 100 UNITS/ML UNIT SUBQ SCH ×4 (06:29→20:29)
[2018-07-15] MEDS: guaiFENesin 200 MG/10 ML UDC PO PRN ×2 (06:34→18:34)
[2018-07-15 06:35] LABS: ALB/GLOB RATIO 1.1 (1.0-1.8); ALBUMIN 3.1 gm/dL (4.2-5.5); ALKALINE PHOSPHATASE 66 U/L (34-104); ANION GAP 12.6 (7.0-16.0); BILIRUBIN,TOTAL 0.4 mg/dL (0.3-1.0); BUN - UREA NITROGEN 29 mg/dL (7-25); CALCIUM SERUM 8.8 mg/dL (8.6-10.3); CARBON DIOXIDE 20.6 mEq/L (21.0-31.0); CHLORIDE 104 mEq/L (98-107); CREATININE - SERUM 1.7 mg/dL (0.7-1.3); GLUCOSE 224 mg/dL (70-105); POTASSIUM SERUM 4.2 mEq/L (3.5-5.1); SGOT 11 U/L (13-39); SGPT/ALT 10 U/L (7-52); SODIUM SERUM 133 mEq/L (136-145); TOTAL PROTEIN,SERUM 5.9 gm/dL (6.0-8.3)
[2018-07-15] MEDS: Ipratropium Neb 0.5 mg/2.5 mL UD HHN SCH ×3 (07:01→14:11)
[2018-07-15] MEDS: Albuterol Nebulizer 2.5mg/3mL HHN SCH ×4 (07:01→21:01)
[2018-07-15] MEDS: Diltiazem 30 mg Tab GT SCH ×2 (08:34→17:03)
[2018-07-15] MEDS: Atorvastatin Calcium 10 MG TAB GT SCH (08:41)
[2018-07-15] MEDS: Pantoprazole 40 mg/Packet GT SCH (08:41)
[2018-07-15] MEDS: Escitalopram Oxalate 5 mg Tab GT SCH (08:41)
[2018-07-15] MEDS ORDERED: Vancomycin HCl 1.5 GM in Sodium Chloride 0.9% 500 ML IV SCH (10:00)
[2018-07-15 11:11] LABS: FOLIC ACID 8.6 ng/mL (>3.0)
--- NOTE | 2018-07-15 12:07 | Internal Medicine Prog Note ---
Internal Medicine Subjective - Subjective Patient seen and examined:: with staff, chart reviewed Patient is:: asleep, verbal, interactive, arousable, in bed, denies any new complaints, confused Patient Complaints of:: congestion Per staff patient has:: no adverse event, no episodes of fall, poor appetite, tolerating meds Internal Medicine Objective - Results Result Diagrams: 07/15/18 05:50 07/15/18 05:50 Recent Labs: Laboratory Last Values WBC 6.8 Th/cmm (4.8-10.8) 07/15/18 05:50 RBC 3.62 Mil/cmm (3.80-5.80) L 07/15/18 05:50 Hgb 10.8 gm/dL (12-16) L 07/15/18 05:50 Hct 32.6 % (41.0-60) L 07/15/18 05:50 MCV 90.0 fl (80-99) 07/15/18 05:50 MCH 29.8 pg (27.0-31.0) 07/15/18 05:50 MCHC Differential 33.1 pg (28.0-36.0) 07/15/18 05:50 RDW 12.7 % (11.5-20.0) 07/15/18 05:50 Plt Count 194 Th/cmm (150-400) D 07/15/18 05:50 MPV 6.7 fl 07/15/18 05:50 Add Manual Diff YES 07/13/18 17:54 Neutrophils % 63.4 % (40.0-80.0) 07/15/18 05:50 Band Neutrophils % 4 % (0-10) 07/13/18 17:54 Lymphocytes % 18.1 % (20.0-50.0) L 07/15/18 05:50 Monocytes % 8.5 % (2.0-10.0) 07/15/18 05:50 Eosinophils % 8.8 % (0.0-5.0) H 07/15/18 05:50 Basophils % 1.2 % (0.0-2.0) 07/15/18 05:50 Neutrophils (Manual) 70 % (40-80) 07/13/18 17:54 Lymphocytes 18 % (20-50) L 07/13/18 17:54 Monocytes 5 % (2-10) 07/13/18 17:54 Eosinophils 3 % (0-5) 07/13/18 17:54 PT 10.1 SECONDS (9.5-11.5) 07/13/18 17:54 INR 0.97 (0.5-1.4) 07/13/18 17:54 PTT (Actin FS) 33.6 SECONDS (26.0-38.0) 07/13/18 17:54 Sodium 133 mEq/L (136-145) L 07/15/18 05:50 Potassium 4.2 mEq/L (3.5-5.1) 07/15/18 05:50 Chloride 104 mEq/L (98-107) 07/15/18 05:50 Carbon Dioxide 20.6 mEq/L (21.0-31.0) L 07/15/18 05:50 Anion Gap 12.6 (7.0-16.0) 07/15/18 05:50 BUN 29 mg/dL (7-25) H 07/15/18 05:50 Creatinine 1.7 mg/dL (0.7-1.3) H 07/15/18 05:50 Est GFR ( Amer) TNP 07/15/18 05:50 Est GFR (Non-Af Amer) TNP 07/15/18 05:50 BUN/Creatinine Ratio 17.1 07/15/18 05:50 Glucose 224 mg/dL (70-105) H 07/15/18 05:50 POC Glucose 229 MG/DL (70 - 105) H 07/15/18 11:04 Whole Bld Lactic Acid 1.98 mmol/L (0.60-1.99) 07/13/18 20:12 Calcium 8.8 mg/dL (8.6-10.3) 07/15/18 05:50 Total Bilirubin 0.4 mg/dL (0.3-1.0) 07/15/18 05:50 AST 11 U/L (13-39) L 07/15/18 05:50 ALT 10 U/L (7-52) 07/15/18 05:50 Alkaline Phosphatase 66 U/L (34-104) 07/15/18 05:50 Ammonia 39 umol/L (16-53) 07/14/18 06:00 Creatine Kinase 41 U/L (30-223) 07/13/18 17:54 Troponin I 0.01 ng/mL (0.01-0.05) 07/13/18 17:54 B-Natriuretic Peptide 121.0 pg/mL (5.0-100.0) H 07/14/18 06:00 Total Protein 5.9 gm/dL (6.0-8.3) L 07/15/18 05:50 Albumin 3.1 gm/dL (4.2-5.5) L 07/15/18 05:50 Globulin 2.8 gm/dL 07/15/18 05:50 Albumin/Globulin Ratio 1.1 (1.0-1.8) 07/15/18 05:50 Amylase 62 U/L (29-103) 07/13/18 17:54 Lipase 17 U/L (11-82) 07/13/18 17:54 Vitamin B12 934 pg/mL (232-1245) 07/14/18 06:00 Folic Acid 8.6 ng/mL (>3.0) 07/14/18 06:00 TSH 0.62 uIU/ml (0.34-5.60) 07/14/18 06:00 Urine Source MIDSTREAM 07/13/18 19:45 Urine Color YELLOW 07/13/18 19:45 Urine Clarity CLEAR (CLEAR) 07/13/18 19:45 Urine pH 6.0 (4.6 - 8.0) 07/13/18 19:45 Ur Specific [place] 1.020 (1.005-1.030) 07/13/18 19:45 Urine Protein >=300 mg/dL (NEGATIVE) 07/13/18 19:45 Urine Glucose (UA) 100 mg/dL (NEGATIVE) H 07/13/18 19:45 Urine Ketones NEGATIVE mg/dL (NEGATIVE) 07/13/18 19:45 Urine Blood TRACE (NEGATIVE) 07/13/18 19:45 Urine Nitrate NEGATIVE (NEGATIVE) 07/13/18 19:45 Urine Bilirubin NEGATIVE (NEGATIVE) 07/13/18 19:45 Urine Urobilinogen 0.2 E.U./dL (0.2 - 1.0) 07/13/18 19:45 Ur Leukocyte Esterase NEGATIVE (NEGATIVE) 07/13/18 19:45 Urine RBC 2-5 /hpf (0-5) H 07/13/18 19:45 Urine WBC 0-2 /hpf (0-5) 07/13/18 19:45 Ur Epithelial Cells FEW /lpf (FEW) 07/13/18 19:45 Urine Bacteria 1+ /hpf (NONE SEEN) H 07/13/18 19:45 Coarse Granular Casts 0-2 /lpf (NONE SEEN) H 07/13/18 19:45 - Physical Exam Vitals and I&O: Vital Signs Temp 98.3 F 07/15/18 11:30 Pulse 66 07/15/18 11:30 Resp 18 07/15/18 12:01 BP 158/55 07/15/18 11:30 Pulse Ox 97 07/15/18 11:30 Intake & Output 07/14/18 07/15/18 07/15/18 18:59 06:59 18:59 Intake Total 1800 1050 Balance 1800 1050 Weight (lbs) 81.647 kg 83.96 kg Intake: Intake, IV Amount 1000 1050 Cefepime 1 gm In Dextrose 50 5% 50 ml @ 100 mls/hr IV Q12HR [facility] Rx#:[id number] Sodium Chloride 0.45% 1, 1000 1000 000 ml @ 80 mls/hr IV . [id number] [facility] Rx#:[id number] Oral 800 Other: # Voids 3 3 # Bowel Movements 3 Stool Characteristics Soft Soft Soft Weight Source Bedscale Bedscale Active Medications: Current Medications Acetaminophen (Tylenol) 650 mg PO Q4H PRN PRN Reason: Pain Or Fever above 101 Stop: 09/11/18 22:51 Last Admin: 07/14/18 13:33 Dose: 650 mg Albuterol Sulfate (Albuterol 2.5mg/3ml Neb Ud) 2.5 mg HHN Q4HRT PRN PRN Reason: Shortness of Breath Stop: 09/11/18 22:48 Albuterol Sulfate (Albuterol 2.5mg/3ml Neb Ud) 2.5 mg HHN QIDRT [facility] Stop: 09/12/18 06:59 Last Admin: 07/15/18 07:01 Dose: 2.5 mg Aspirin (Ecotrin) 81 mg PO DAILY [facility] Stop: 09/12/18 08:59 Last Admin: 07/15/18 08:41 Dose: 81 mg Atorvastatin Calcium (Lipitor) 10 mg GT DAILY [facility]; Protocol Stop: 09/12/18 08:59 Last Admin: 07/15/18 08:41 Dose: 10 mg Dextrose (D50w) 50 ml IVP PRN PRN PRN Reason: Blood Glucose less than 70 Stop: 09/11/18 22:54 Dextrose (Glutose 40%) 18.75 gm PO PRN PRN PRN Reason: Blood Glucose less than 70 Stop: 09/11/18 22:54 Diltiazem HCl (Cardizem) 30 mg GT BID [facility] Stop: 09/12/18 08:59 Last Admin: 07/15/18 08:34 Dose: 30 mg Escitalopram Oxalate (Lexapro) 5 mg GT DAILY [facility] Stop: 09/12/18 13:29 Last Admin: 07/15/18 08:41 Dose: 5 mg Finasteride (Proscar) 5 mg GT DAILY [facility]; Protocol Stop: 09/12/18 08:59 Last Admin: 07/15/18 08:34 Dose: 5 mg Glipizide (Glucotrol) 20 mg PO BIDWM [facility] Stop: 09/12/18 07:59 Last Admin: 07/15/18 08:33 Dose: 20 mg Glucagon (Glucagen) 1 mg IM PRN PRN PRN Reason: Blood Glucose less than 70 Stop: 09/11/18 22:54 Guaifenesin (Robitussin) 200 mg PO Q4H PRN PRN Reason: Cough or Congestion Stop: 09/11/18 22:51 Last Admin: 07/15/18 06:34 Dose: 200 mg Cefepime HCl 1 gm/ Dextrose 50 mls @ 100 mls/hr IV Q12HR [facility] Stop: 09/12/18 23:29 Last Admin: 07/15/18 08:33 Dose: 100 mls/hr Sodium Chloride (Nacl 0.45%) 1,000 mls @ 80 mls/hr IV .[id number] [facility] Stop: 09/11/18 22:59 Last Admin: 07/15/18 05:49 Dose: 80 mls/hr Vancomycin HCl 1.5 gm/ Sodium (Chloride) 500 mls @ 250 mls/hr IV Q24H [facility] Stop: 09/13/18 09:59 Last Admin: 07/15/18 10:52 Dose: 250 mls/hr Ibuprofen (Advil) 600 mg GT Q6HR PRN PRN Reason: Pain (Mild) Stop: 09/11/18 22:48 Last Admin: 07/14/18 10:21 Dose: 600 mg Insulin Human Lispro (Humalog Insulin Sliding Scale) 0 units SUBQ ACHS [facility]; Protocol Stop: 09/12/18 07:29 Last Admin: 07/15/18 11:13 Dose: 2 units Ipratropium [place] (Atrovent Neb 0.5mg/2.5ml) 0.5 mg HHN QIDRT [facility] Stop: 09/12/18 06:59 Last Admin: 07/15/18 07:01 Dose: 0.5 mg Levetiracetam (Keppra) 250 mg PO BID [facility] Stop: 09/12/18 08:59 Last Admin: 07/15/18 08:41 Dose: 250 mg Lorazepam (Ativan) 0.5 mg GT BID PRN; Protocol PRN Reason: Agitation Stop: 09/11/18 22:48 Last Admin: 07/14/18 23:47 Dose: 0.5 mg Miscellaneous (Vancomycin Iv Per Pharmacy) 1 ea MC PRN PRN PRN Reason: PROTOCOL Stop: 09/11/18 23:29 Nitroglycerin (Nitrostat) 0.4 mg SL Q5MIN PRN PRN Reason: Chest Pain Stop: 09/11/18 22:50 Last Admin: 07/14/18 05:53 Dose: 0.4 mg Ondansetron HCl (Zofran) 4 mg IV Q8H PRN PRN Reason: Nausea / Vomiting Stop: 09/11/18 22:51 Pantoprazole Sodium (Protonix) 40 mg GT DAILY [facility] Stop: 09/12/18 08:59 Last Admin: 07/15/18 08:41 Dose: 40 mg Pregabalin (Lyrica) 50 mg GT BID [facility] Stop: 09/12/18 08:59 Last Admin: 07/15/18 08:41 Dose: 50 mg Temazepam (Restoril) 15 mg GT HS [facility] Stop: 09/12/18 20:59 Last Admin: 07/14/18 20:30 Dose: 15 mg General: lethargic, disheveled, appears older HEENT: NC/AT, PERRLA, EOMI Neck: Supple, No JVD Lungs: rales Cardiovascular: RRR, Normal S1, Normal S2, with murmur Abdomen: soft, non-tender, globular, positive bowel sound Extremities: excoriation, contracture, atrophy Neurological: no change, disorganized, muscle weakness, unsteady - Procedures Procedures: Procedures Procedure Code Date COLONOSCOPY AND BIOPSY 68994 09/24/05 EGD DIAGNOSTIC BRUSH WASH 90532 09/24/[address] GASTROSTOMY TUBE 87008 01/20/15 ELECTROENCEPHALOGRAM 89.14 09/24/05 ENDOSC POLYPECTOMY OF LG INTEST 45.42 09/24/05 INSERTION OF FEEDING DEVICE INTO STOMACH, PERC APPROACH [id number] 01/20/15 OTHER ENDOSCOPY OF SM INTEST 45.13 09/24/05 PARTIAL REMOVAL OF COLON 37856 01/20/15 REMOVAL OF GALLBLADDER 19628 01/20/15 RESECTION OF DESCENDING COLON, OPEN APPROACH [id number] 01/20/15 RESECTION OF GALLBLADDER, OPEN APPROACH [id number] 01/20/15 SPINAL FLUID TAP DIAGNOSTIC 68005 09/24/05 SPINAL TAP 03.31 09/24/05 Internal Medicine Assmt/Plan - Assessment Assessment: ASSESSMENT AND PLAN: Leukocytosis, sepsis, diabetes, stroke with left-sided weakness, hypertension, hypercholesterolemia, major depressive disorder, BPH, and seizure. - Plan Plan: PLAN: Continue ___maxipime_ as well as vancomycin. We will follow patient's blood culture as well as a chest x-ray. We will continue to monitor the patient closely. will refer to PT and neuro dw brother by telephone fatoumata [place]
[2018-07-16] MEDS: Sodium Chloride 0.45% 1,000 ML IV SCH ×2 (06:27→19:45)
[2018-07-16] MEDS: INSULIN LISPRO SLIDING SCALE 100 UNITS/ML UNIT SUBQ SCH ×4 (06:29→21:14)
[2018-07-16] MEDS: Ipratropium Neb 0.5 mg/2.5 mL UD HHN SCH ×4 (07:27→19:16)
[2018-07-16] MEDS: Albuterol Nebulizer 2.5mg/3mL HHN SCH ×4 (07:27→19:16)
[2018-07-16] MEDS: Diltiazem 30 mg Tab GT SCH ×2 (09:05→17:56)
[2018-07-16] MEDS: Pantoprazole 40 mg/Packet GT SCH (09:06)
[2018-07-16] MEDS: Atorvastatin Calcium 10 MG TAB GT SCH (09:06)
[2018-07-16] MEDS: Escitalopram Oxalate 5 mg Tab GT SCH (09:06)
--- NOTE | 2018-07-16 12:48 | Internal Medicine Prog Note ---
Internal Medicine Subjective - Subjective Patient seen and examined:: with staff, chart reviewed Patient is:: asleep, verbal, interactive, arousable, in bed, denies any new complaints, confused Patient Complaints of:: congestion Per staff patient has:: no adverse event, no episodes of fall, poor appetite, tolerating meds Internal Medicine Objective - Results Result Diagrams: 07/15/18 05:50 07/15/18 05:50 Recent Labs: Laboratory Last Values WBC 6.8 Th/cmm (4.8-10.8) 07/15/18 05:50 RBC 3.62 Mil/cmm (3.80-5.80) L 07/15/18 05:50 Hgb 10.8 gm/dL (12-16) L 07/15/18 05:50 Hct 32.6 % (41.0-60) L 07/15/18 05:50 MCV 90.0 fl (80-99) 07/15/18 05:50 MCH 29.8 pg (27.0-31.0) 07/15/18 05:50 MCHC Differential 33.1 pg (28.0-36.0) 07/15/18 05:50 RDW 12.7 % (11.5-20.0) 07/15/18 05:50 Plt Count 194 Th/cmm (150-400) D 07/15/18 05:50 MPV 6.7 fl 07/15/18 05:50 Add Manual Diff YES 07/13/18 17:54 Neutrophils % 63.4 % (40.0-80.0) 07/15/18 05:50 Band Neutrophils % 4 % (0-10) 07/13/18 17:54 Lymphocytes % 18.1 % (20.0-50.0) L 07/15/18 05:50 Monocytes % 8.5 % (2.0-10.0) 07/15/18 05:50 Eosinophils % 8.8 % (0.0-5.0) H 07/15/18 05:50 Basophils % 1.2 % (0.0-2.0) 07/15/18 05:50 Neutrophils (Manual) 70 % (40-80) 07/13/18 17:54 Lymphocytes 18 % (20-50) L 07/13/18 17:54 Monocytes 5 % (2-10) 07/13/18 17:54 Eosinophils 3 % (0-5) 07/13/18 17:54 PT 10.1 SECONDS (9.5-11.5) 07/13/18 17:54 INR 0.97 (0.5-1.4) 07/13/18 17:54 PTT (Actin FS) 33.6 SECONDS (26.0-38.0) 07/13/18 17:54 Sodium 133 mEq/L (136-145) L 07/15/18 05:50 Potassium 4.2 mEq/L (3.5-5.1) 07/15/18 05:50 Chloride 104 mEq/L (98-107) 07/15/18 05:50 Carbon Dioxide 20.6 mEq/L (21.0-31.0) L 07/15/18 05:50 Anion Gap 12.6 (7.0-16.0) 07/15/18 05:50 BUN 29 mg/dL (7-25) H 07/15/18 05:50 Creatinine 1.7 mg/dL (0.7-1.3) H 07/15/18 05:50 Est GFR ( Amer) TNP 07/15/18 05:50 Est GFR (Non-Af Amer) TNP 07/15/18 05:50 BUN/Creatinine Ratio 17.1 07/15/18 05:50 Glucose 224 mg/dL (70-105) H 07/15/18 05:50 POC Glucose 220 MG/DL (70 - 105) H 07/16/18 11:37 Whole Bld Lactic Acid 1.98 mmol/L (0.60-1.99) 07/13/18 20:12 Calcium 8.8 mg/dL (8.6-10.3) 07/15/18 05:50 Total Bilirubin 0.4 mg/dL (0.3-1.0) 07/15/18 05:50 AST 11 U/L (13-39) L 07/15/18 05:50 ALT 10 U/L (7-52) 07/15/18 05:50 Alkaline Phosphatase 66 U/L (34-104) 07/15/18 05:50 Ammonia 34 umol/L (16-53) 07/16/18 08:15 Creatine Kinase 41 U/L (30-223) 07/13/18 17:54 Troponin I 0.01 ng/mL (0.01-0.05) 07/13/18 17:54 B-Natriuretic Peptide 121.0 pg/mL (5.0-100.0) H 07/14/18 06:00 Total Protein 5.9 gm/dL (6.0-8.3) L 07/15/18 05:50 Albumin 3.1 gm/dL (4.2-5.5) L 07/15/18 05:50 Globulin 2.8 gm/dL 07/15/18 05:50 Albumin/Globulin Ratio 1.1 (1.0-1.8) 07/15/18 05:50 Amylase 62 U/L (29-103) 07/13/18 17:54 Lipase 17 U/L (11-82) 07/13/18 17:54 Vitamin B12 934 pg/mL (232-1245) 07/14/18 06:00 Folic Acid 8.6 ng/mL (>3.0) 07/14/18 06:00 TSH 0.62 uIU/ml (0.34-5.60) 07/14/18 06:00 Urine Source MIDSTREAM 07/13/18 19:45 Urine Color YELLOW 07/13/18 19:45 Urine Clarity CLEAR (CLEAR) 07/13/18 19:45 Urine pH 6.0 (4.6 - 8.0) 07/13/18 19:45 Ur Specific [place] 1.020 (1.005-1.030) 07/13/18 19:45 Urine Protein >=300 mg/dL (NEGATIVE) 07/13/18 19:45 Urine Glucose (UA) 100 mg/dL (NEGATIVE) H 07/13/18 19:45 Urine Ketones NEGATIVE mg/dL (NEGATIVE) 07/13/18 19:45 Urine Blood TRACE (NEGATIVE) 07/13/18 19:45 Urine Nitrate NEGATIVE (NEGATIVE) 07/13/18 19:45 Urine Bilirubin NEGATIVE (NEGATIVE) 07/13/18 19:45 Urine Urobilinogen 0.2 E.U./dL (0.2 - 1.0) 07/13/18 19:45 Ur Leukocyte Esterase NEGATIVE (NEGATIVE) 07/13/18 19:45 Urine RBC 2-5 /hpf (0-5) H 07/13/18 19:45 Urine WBC 0-2 /hpf (0-5) 07/13/18 19:45 Ur Epithelial Cells FEW /lpf (FEW) 07/13/18 19:45 Urine Bacteria 1+ /hpf (NONE SEEN) H 07/13/18 19:45 Coarse Granular Casts 0-2 /lpf (NONE SEEN) H 07/13/18 19:45 Vancomycin Trough 20.9 ug/mL (5-10) H 07/16/18 08:15 - Physical Exam Vitals and I&O: Vital Signs Temp 98.2 F 07/16/18 11:44 Pulse 73 07/16/18 11:44 Resp 18 07/16/18 11:55 BP 158/62 07/16/18 11:44 Pulse Ox 98 07/16/18 11:44 Intake & Output 07/15/18 07/16/18 07/16/18 18:59 06:59 18:59 Intake Total 1210 50 Balance 1210 50 Weight (lbs) 83.915 kg 83.915 kg Intake: Intake, IV Amount 1050 50 Cefepime 1 gm In Dextrose 50 50 5% 50 ml @ 100 mls/hr IV Q12HR [facility] Rx#:[id number] Sodium Chloride 0.45% 1, 1000 000 ml @ 80 mls/hr IV . [id number] [facility] Rx#:[id number] Oral 80 Tube Feeding 80 Other: # Voids 3 2 # Bowel Movements 1 Stool Characteristics Soft Soft Soft Weight Source Bedscale Bedscale Active Medications: Current Medications Acetaminophen (Tylenol) 650 mg PO Q4H PRN PRN Reason: Pain Or Fever above 101 Stop: 09/11/18 22:51 Last Admin: 07/14/18 13:33 Dose: 650 mg Albuterol Sulfate (Albuterol 2.5mg/3ml Neb Ud) 2.5 mg HHN Q4HRT PRN PRN Reason: Shortness of Breath Stop: 09/11/18 22:48 Albuterol Sulfate (Albuterol 2.5mg/3ml Neb Ud) 2.5 mg HHN QIDRT [facility] Stop: 09/12/18 06:59 Last Admin: 07/16/18 10:11 Dose: 2.5 mg Aspirin (Ecotrin) 81 mg PO DAILY [facility] Stop: 09/12/18 08:59 Last Admin: 07/16/18 09:06 Dose: 81 mg Atorvastatin Calcium (Lipitor) 10 mg GT DAILY [facility]; Protocol Stop: 09/12/18 08:59 Last Admin: 07/16/18 09:06 Dose: 10 mg Dextrose (D50w) 50 ml IVP PRN PRN PRN Reason: Blood Glucose less than 70 Stop: 09/11/18 22:54 Dextrose (Glutose 40%) 18.75 gm PO PRN PRN PRN Reason: Blood Glucose less than 70 Stop: 09/11/18 22:54 Diltiazem HCl (Cardizem) 30 mg GT BID [facility] Stop: 09/12/18 08:59 Last Admin: 07/16/18 09:05 Dose: 30 mg Escitalopram Oxalate (Lexapro) 5 mg GT DAILY [facility] Stop: 09/12/18 13:29 Last Admin: 07/16/18 09:06 Dose: 5 mg Finasteride (Proscar) 5 mg GT DAILY [facility]; Protocol Stop: 09/12/18 08:59 Last Admin: 07/16/18 09:06 Dose: 5 mg Glipizide (Glucotrol) 20 mg PO BIDWM [facility] Stop: 09/12/18 07:59 Last Admin: 07/16/18 08:03 Dose: 20 mg Glucagon (Glucagen) 1 mg IM PRN PRN PRN Reason: Blood Glucose less than 70 Stop: 09/11/18 22:54 Guaifenesin (Robitussin) 200 mg PO Q4H PRN PRN Reason: Cough or Congestion Stop: 09/11/18 22:51 Last Admin: 07/15/18 18:34 Dose: 200 mg Hydroxyzine HCl (Atarax) 20 mg PO Q6H PRN; Protocol PRN Reason: Itching Stop: 09/13/18 15:54 Last Admin: 07/15/18 17:04 Dose: 20 mg Cefepime HCl 1 gm/ Dextrose 50 mls @ 100 mls/hr IV Q12HR [facility] Stop: 09/12/18 23:29 Last Admin: 07/16/18 09:05 Dose: 100 mls/hr Sodium Chloride (Nacl 0.45%) 1,000 mls @ 80 mls/hr IV .[id number] [facility] Stop: 09/11/18 22:59 Last Admin: 07/16/18 06:27 Dose: 80 mls/hr Ibuprofen (Advil) 600 mg GT Q6HR PRN PRN Reason: Pain (Mild) Stop: 09/11/18 22:48 Last Admin: 07/15/18 14:20 Dose: 600 mg Insulin Human Lispro (Humalog Insulin Sliding Scale) 0 units SUBQ ACHS [facility]; Protocol Stop: 09/12/18 07:29 Last Admin: 07/16/18 11:41 Dose: 2 units Ipratropium [place] (Atrovent Neb 0.5mg/2.5ml) 0.5 mg HHN QIDRT [facility] Stop: 09/12/18 06:59 Last Admin: 07/16/18 10:11 Dose: 0.5 mg Levetiracetam (Keppra) 250 mg PO BID [facility] Stop: 09/12/18 08:59 Last Admin: 07/16/18 09:06 Dose: 250 mg Lorazepam (Ativan) 0.5 mg GT BID PRN; Protocol PRN Reason: Agitation Stop: 09/11/18 22:48 Last Admin: 07/14/18 23:47 Dose: 0.5 mg Nitroglycerin (Nitrostat) 0.4 mg SL Q5MIN PRN PRN Reason: Chest Pain Stop: 09/11/18 22:50 Last Admin: 07/14/18 05:53 Dose: 0.4 mg Ondansetron HCl (Zofran) 4 mg IV Q8H PRN PRN Reason: Nausea / Vomiting Stop: 09/11/18 22:51 Pantoprazole Sodium (Protonix) 40 mg GT DAILY [facility] Stop: 09/12/18 08:59 Last Admin: 07/16/18 09:06 Dose: 40 mg Pregabalin (Lyrica) 50 mg GT BID [facility] Stop: 09/12/18 08:59 Last Admin: 07/16/18 09:06 Dose: 50 mg Temazepam (Restoril) 15 mg GT HS [facility] Stop: 09/12/18 20:59 Last Admin: 07/15/18 20:31 Dose: 15 mg General: lethargic, disheveled, appears older HEENT: NC/AT, PERRLA, EOMI Neck: Supple, No JVD Lungs: rales Cardiovascular: RRR, Normal S1, Normal S2, with murmur Abdomen: soft, non-tender, globular, positive bowel sound Extremities: excoriation, contracture, atrophy Neurological: no change, disorganized, muscle weakness, unsteady - Procedures Procedures: Procedures Procedure Code Date COLONOSCOPY AND BIOPSY 27836 09/24/05 EGD DIAGNOSTIC BRUSH WASH 66329 09/24/[address] GASTROSTOMY TUBE 90717 01/20/15 ELECTROENCEPHALOGRAM 89.14 09/24/05 ENDOSC POLYPECTOMY OF LG INTEST 45.42 09/24/05 INSERTION OF FEEDING DEVICE INTO STOMACH, PERC APPROACH [id number] 01/20/15 OTHER ENDOSCOPY OF SM INTEST 45.13 09/24/05 PARTIAL REMOVAL OF COLON 40494 01/20/15 REMOVAL OF GALLBLADDER 26963 01/20/15 RESECTION OF DESCENDING COLON, OPEN APPROACH [id number] 01/20/15 RESECTION OF GALLBLADDER, OPEN APPROACH [id number] 01/20/15 SPINAL FLUID TAP DIAGNOSTIC 54185 09/24/05 SPINAL TAP 03.31 09/24/05 Internal Medicine Assmt/Plan - Assessment Assessment: ASSESSMENT AND PLAN: Leukocytosis, sepsis, diabetes, stroke with left-sided weakness, hypertension, hypercholesterolemia, major depressive disorder, BPH, and seizure. - Plan Plan: PLAN: Continue ___maxipime_ as well as vancomycin. We will follow patient's blood culture as well as a chest x-ray. We will continue to monitor the patient closely. will refer to PT and neuro dw brother by telephone fatoumata rn Nutritional Asmnt/Malnutr-PDOC - Dietary Evaluation Malnutrition Findings (Please click <Entered> for more info): Nutritional Asmnt/Malnutrition Start: 07/15/18 16: 45 Text: Status: Complete Freq: Protocol: Document 07/15/18 16:45 LCHENG (Rec: 07/15/18 16:55 LCHENG [email or web address]) Nutritional Asmnt/Malnutrition Patient General Information Diagnosis possible sepsis, change in metnal status Pertinent Medical Hx/Surgical Hx HTN, DM, CAD, Asthma, COPD, CVA/TIA, dyslipidemia, seizure Subjective Information Consult received for bi foot/ toe wounds, manuela 11. Pt seen sitting up in bed at time of visit, having lunch, somewhat confused, selevtively answer RD questions. Not able to provide diabetic nutrition at this time d/t pt mental statua . Noticed pt has shaking hand. Per EMR, PO intake 50-100%. Current Diet Order/ Nutrition Support CCHO, soft Pertinent Medications lipitor, glucotrol, humalog, protonix, nacl 0.45%, vancomycin Pertinent Labs 07/15 Na 133, BUN 29, Cr 1.7, Glucose 224, POC 184-229, alb 3.1 Nutritional Hx/Data Height 1.7 m Height (Calculated Centimeters) 170.2 Current Weight (lbs) 83.915 kg Weight (Calculated Kilograms) 83.9 Weight (Calculated Grams) 17485.6 [place] Body Weight 67 Body Mass Index (BMI) 29.0 Weight Status Overweight GI Symptoms GI Symptoms None Last BM 4/3 x 3 Difficult in: None Skin Integrity/Comment: skin tear to left foot/left buttock discoloration to sacrum dryness to left leg Current %PO Good (75-100%) Estimated Nutritional Goals BEE in Kcals: Using Current wt Calories/Kcals/Kg 23-27 Kcals Calculated Protein: Using Current wt Protein g/k.8-1 Protein Calculated 6484 Fluid: ml Nutritional Problem 1. Problem Problem altered nutrition related labs Etiology hyperglycemia Signs/Symptoms: Glucose 224, POC 184-229 Intervention/Recommendation Comments 1. Continue with [facility] diet as ordered. 2. Monitor PO intake, wt, labs and skin integrity 3. F/U as high risk in 2-3 days Expected Outcomes/Goals Expected Outcomes/Goals 1. PO intake to meet at least 75% of nutritional needs. 2. Wt stability, skin to remain intact, labs to approach WNL.
[2018-07-16] MEDS: guaiFENesin 200 MG/10 ML UDC PO PRN (19:44)
--- NOTE | 2018-07-17 04:34 | Consultation ---
DATE OF CONSULTATION: 07/16/2018 HISTORY OF PRESENT ILLNESS: A 77-year-old the patient, complains of being confused. He seems to be interacting more now. The patient is lying in bed, awake. The patient will answer to questions. PAST MEDICAL HISTORY: The patient with stroke with left hemiplegia. Very limited movement of the legs. The patient is quite stiff. Other history includes: 1. History of hypertension. 2. Diabetes. 3. Hyperlipidemia. 4. Depression. MEDICATIONS: The patient is on Keppra for seizures, no seizures at the moment. Lyrica, glipizide, Lexapro, Restoril, lorazepam, aspirin, atorvastatin, Atrovent. SOCIAL HISTORY: He does not smoke or drink now, he used to in the past. REVIEW OF SYSTEMS: As above, otherwise 12-point negative. PHYSICAL EXAMINATION: VITAL SIGNS: Temperature 98.0, blood pressure 130/59, pulse is 58. NECK: Supple. No neck bruits. HEART: Sounds S1, S2. LUNGS: Clear. NEUROLOGIC: The patient is lying in bed. The patient is awake and alert. He answers his name. He tells me where he lives. He is able to name simple things like pen and glasses. He did not know the date. I do not know whether that is his baseline. Cranial: Pupils react to light. Left facial weakness. Motor: First, he has increased tone actually on the right side, also with some cogwheel rigidity. He also has markedly increased tone on the left side with the left arm held in a semi-flexed position with spasticity and contracture. Legs: I really do not get much movement on the right or left, both have increased tone, left seem to be worse. Reflexes: 1-2+ more on the left side. Legs again, knees are about 2, difficult to get the ankles withdrawal, question of withdrawal of the toes. INVESTIGATIONS: I do not see any CT scan or such. The patient's chest x-ray with cardiomegaly. LABORATORY DATA: WBC 6.8, hemoglobin 10.8. Sodium 133, BUN is 29, creatinine 1.7. Urine wbc's 0-2. ASSESSMENT: 1. Encephalopathy. 2. Underlying possible dementia. 3. Clinically parkinsonian features. 4. Paraplegia with markedly increased tone. 5. Previous stroke with left hemiplegia. 6. History of seizures. 7. Diabetes. 8. Hypertension. 9. Hyperlipidemia. 10. Rule out underlying sepsis. He does not seem to have any neurological central nervous system sepsis. PLAN: At this I am planning to do a CT scan of the head. The patient does need extensive workup. The patient should follow with Neurology outpatient. May benefit from trial of Sinemet. He should also have a cervical spine CT for his myelopathy. [facility]# [id number]
[2018-07-17] MEDS: Albuterol Nebulizer 2.5mg/3mL HHN SCH ×3 (06:31→13:59)
[2018-07-17] MEDS: Ipratropium Neb 0.5 mg/2.5 mL UD HHN SCH ×3 (06:31→13:59)
[2018-07-17] MEDS: INSULIN LISPRO SLIDING SCALE 100 UNITS/ML UNIT SUBQ SCH ×2 (06:45→12:25)
[2018-07-17 07:09] LABS: % BASOPHILS 0.5 % (0.0-2.0); % EOSINOPHILS 11.6 % (0.0-5.0); % MONOCYTES 7.9 % (2.0-10.0); EOSINOPHILE ABSOLUTE 0.6 Th/cmm (0.1-0.4); HEMATOCRIT 31.1 % (41.0-60); HEMOGLOBIN 10.5 gm/dL (12-16); LYMPHOCYTE ABSOLUTE 1.3 Th/cmm (1.5-3.0); MEAN CELL VOLUME 88.7 fl (80-99); MEAN CORPUSCULAR HEMOGLOBIN 29.8 pg (27.0-31.0); MEAN CORPUSCULAR HGB CONC 33.6 pg (28.0-36.0); MONOCYTE ABSOLUTE 0.4 Th/cmm (0.3-1.0); NEUTROPHILE ABSOLUTE 3.3 Th/cmm (1.8-8.0); PLATELET COUNT 224 Th/cmm (150-400); RED BLOOD COUNT 3.51 Mil/cmm (3.80-5.80); RED CELL DISTRIBUTION WIDTH 12.5 % (11.5-20.0); WHITE BLOOD COUNT 5.6 Th/cmm (4.8-10.8)
[2018-07-17 07:35] LABS: ANION GAP 12.1 (7.0-16.0); BUN - UREA NITROGEN 27 mg/dL (7-25); CALCIUM SERUM 8.8 mg/dL (8.6-10.3); CARBON DIOXIDE 20.1 mEq/L (21.0-31.0); CHLORIDE 108 mEq/L (98-107); CREATININE - SERUM 1.7 mg/dL (0.7-1.3); GLUCOSE 219 mg/dL (70-105); POTASSIUM SERUM 4.2 mEq/L (3.5-5.1); SODIUM SERUM 136 mEq/L (136-145)
[2018-07-17] MEDS: Pantoprazole 40 mg/Packet GT SCH (08:45)
[2018-07-17] MEDS: Diltiazem 30 mg Tab GT SCH (08:46)
[2018-07-17] MEDS: Escitalopram Oxalate 5 mg Tab GT SCH (08:46)
[2018-07-17] MEDS: Atorvastatin Calcium 10 MG TAB GT SCH (08:47)
[2018-07-17] MEDS: Sodium Chloride 0.45% 1,000 ML IV SCH (08:48)
--- NOTE | 2018-07-17 20:25 | Discharge Summary ---
DATE OF DISCHARGE: 07/17/2018 CHIEF COMPLAINT: Acting confused, fever, cough. FINAL DIAGNOSES: 1. Leukocytosis. 2. Possible sepsis. 3. Diabetes. 4. Stroke with left-sided weakness. 5. Hypertension. 6. Hypercholesterolemia. 7. Depression. 8. Benign prostatic hypertrophy. 9. Seizure. 10. Functional quadriplegia. HISTORY: This is a 77-year-old [place] male with a history of diabetes, history of stroke with left-sided weakness, hypertension, hypercholesterolemia and BPH, admitted from a nursing facility secondary to not acting the same. The patient was evaluated in the ER and noted to have elevated white count and lactic acid. The patient is admitted for further management. PHYSICAL EXAMINATION: VITAL SIGNS: Blood pressure 139/53, respirations 18, pulse 60, temperature 98.0. GENERAL: An elderly male, appears his stated age. NECK: Supple. No mass. LUNGS: Equal breath sounds. A few rhonchi. HEART: Regular rate and rhythm with systolic ejection murmur. ABDOMEN: Soft, globular. EXTREMITIES: Positive excoriation, atrophy, and contractures. HOSPITAL COURSE: The patient was admitted to telemetry. Continued on oxygen, bronchodilator treatment, IV antibiotics, and IV hydration. [place] [address], BUN and creatinine were elevated at 29 and 1.7, ____ which started to improve. The patient was referred to Dr. Berry for Neurology. CT of the head and spine done, which did not show any acute changes. The patient was seen by Physical Therapy as well as Speech. The patient is to follow up with Neurology on an outpatient basis. Case was discussed with the patient's son. CONDITION ON DISCHARGE: Fair. Overall prognosis is poor. DISCHARGE INSTRUCTIONS: The patient is to continue with acute rehab as well as follow up with Neurology. JOB# [id number]
--- NOTE | 2018-07-18 11:10 | Diagnostic Imaging Report ---
Head CT without intravenous contrast Indication: CVA Comparison: Head CT performed on 01/04/2018 Technique: Axial images were obtained from the vertex to the skull base without IV contrast. Coronal reconstructions were made. Total DLP: 678, CTDI36 FINDINGS: Images of the brain obtained without contrast demonstrate no evidence of an acute hemorrhage. Again seen is a large right-sided hemispheric infarct with calcifications likely dystrophic. Diffuse atrophy is noted. Diffuse white matter disease is noted. The ventricles and basal cisterns are patent. No mass effect or midline shift. No evidence of the skull fracture or focal soft tissue swelling. There is mild mucosal thickening of the paranasal sinuses. IMPRESSION: No evidence of an acute intracranial hemorrhage. Redemonstration of large right hemispheric infarcts with associated encephalomalacia and dystrophic calcifications. Diffuse Atrophy. Diffuse supratentorial white matter disease which is nonspecific and may be due to chronic microvessel ischemia.. Atherosclerotic vascular disease.
--- NOTE | 2018-07-18 11:13 | Diagnostic Imaging Report ---
CT cervical spine without IV contrast HISTORY: CVA, pain COMPARISON: None Technique: Axial images were obtained from the skull base to the upper thoracic spine without IV contrast. Multiplanar reconstructions were made. Total DLP: 578, CTDI15 FINDINGS: Images of the cervical spine obtained without contrast demonstrate no evidence of an acute fracture or subluxation. Spinal scoliosis is noted. Moderate degenerative changes are seen with multilevel marginal osteophytic spurs greatest anteriorly. Advanced degenerative changes of the atlantodental articulation is noted. There is 3 mm ossification of the posterior longitudinal ligament at C2/C3 with mild spinal canal narrowing at this level.. No prevertebral soft tissue swelling. Atherosclerosis is noted. IMPRESSION: No evidence of an acute fracture or subluxation Moderate generalized degenerative changes. Atherosclerotic vascular disease.
[2018-07-20 04:10] LABS: FOLIC ACID 6.6 ng/mL (>3.0)
== END 2018-07-17 16:32 | DRG 871 ==
LOC: ER 16:32 → TELE 21:55
PROVIDERS: ADMIT Internal Medicine; ATTEND Internal Medicine
DX: A41.9 Sepsis, unspecified organism (principal); R53.2 Functional quadriplegia; I69.354 Hemiplegia and hemiparesis following cerebral infarction affecting left non-dominant side; G93.40 Encephalopathy, unspecified; I10 Essential (primary) hypertension; E11.9 Type 2 diabetes mellitus without complications; I25.10 Atherosclerotic heart disease of native coronary artery without angina pectoris; J44.9 Chronic obstructive pulmonary disease, unspecified; E78.5 Hyperlipidemia, unspecified; R56.9 Unspecified convulsions; E78.00 Pure hypercholesterolemia, unspecified; N40.0 Benign prostatic hyperplasia without lower urinary tract symptoms; F32.9 Major depressive disorder, single episode, unspecified; G20 Parkinson's disease; Z79.84 Long term (current) use of oral hypoglycemic drugs
CPT/HCPCS: 36415-UA; 70450-TC; 71045-TC; 72125-TC; 80048-TC; 80053-TC; 80202-TC; 81001-TC; 82140-TC; 82150-TC; 82550-TC; 82607-90; 82746-90; 82948-90; 83036-90; 83605; 83690-TC; 83880-TC; 84439-90; 84443-TC; 84484-TC; 85007-TC; 85025-TC; 85610-TC; 85730-TC; 86141-TC; 90779; 93005; 94640; 94760; J0692; J3370; J7030; J7040; J7613; X3401; Z7610